=== PATIENT | female | born 1945 | race Caucasian/White ===

== ENCOUNTER 2017-08-14 13:44 | Inpatient (IN) | payer MEDICARE, OTHER ==
[~2017-08-14] VITALS: Ht 154.9 cm; Wt 56.2 kg
[2017-08-14 14:30] VITALS: BP 118/69
--- NOTE | 2017-08-14 14:33 | Emergency Room Report ---
History of Present Illness General Chief Complaint: Seizure Source: Medical Record, PMD Present Illness HPI 72-year-old female, history of schizophrenia,?L forehead herpes zoster ophthalmics Br[facility] No other history is able to be obtained as patient only saying 1-2 word phrases , and not answering questions appropriately. but currently denying complaints Allergies: Coded Allergies: SHELLFISH DERIVED (Verified Allergy, Intermediate, 08/14/17) Dust (Verified Allergy, Unknown, 08/14/17) MOLD (Verified Allergy, Unknown, 08/14/17) WHEAT (Verified Allergy, Unknown, 08/14/17) Patient History Past Medical History: see triage record Past Surgical History: none Pertinent Family History: none Reviewed Nursing Documentation: PMH: Agreed, PSxH: Agreed Review of Systems All Other Systems: limited - confused Physical Exam Vital Signs Date Time Temp Pulse Resp B/P (MAP) Pulse Ox O2 Delivery O2 Flow Rate FiO2 08/14/17 13:51 97.5 73 18 118/69 96 Room Air Sp02 EP Interpretation: reviewed, normal General Appearance: other - awake, nad, blank and withdrawn affect Head: normocephalic - vesicular lesions notedabove L eye Eyes: bilateral eye PERRL, bilateral eye EOMI, bilateral eye other - macules/ pustules on R side of forehead ENT: normal ENT inspection, normal pharynx, normal voice, moist mucus membranes Neck: normal inspection, full range of motion, supple Respiratory: normal inspection, lungs clear, normal breath sounds, no respiratory distress, no retraction, no wheezing, speaking full sentences, chest symmetrical Cardiovascular #1: normal inspection, regular rate, rhythm, normal capillary refill Cardiovascular #2: 2+ radial (R), 2+ radial (L) Gastrointestinal: normal inspection, non tender, soft, non-distended, no guarding Musculoskeletal: normal inspection, back normal, normal range of motion, non- tender Neurologic: other - oritned to name, moving all four ext spont, but is not cooperative for full neuro exam Psychiatric: other - withdrawn affect Skin: normal inspection, normal color, no rash, warm/dry, well hydrated, normal turgor Medical Decision Making Diagnostic Impression: Primary Impression: Seizure disorder Additional Impression: Ophthalmic herpes zoster ER Course 72 yo F schizophrenia, with recurrent seizures DDX: Primary seizure, triggered by infection UTI/PNA vs. dehydration vs. medication non compliance Electrolyte disturbance: hypoglycemia vs. hyponatremia vs. hypocalcemia vs. hypomagnesemia Cardiac: Arrythmia/acs Intracranial pathology: intracranial bleed, stroke Plan: BGM EKG Labs Ativan PRN ER course: No further seizures in ED Given additional 500 valproic acid as recommended by neurologist Disposition: Patient will be admitted to [facility] Discussed with Dr. Jaziel Arana Strict return precautions discussed such as severe headache, fever, chills, neck pain, prolonged or increased frequency of seizures. Patient verbalized understanding and agrees with plan. EKG Diagnostic Results EP Interpretation: Yes Rate: normal Rhythm: NSR ST Segments: No acute changes ASA given to patient: No Rhythm Strip EP Interpretation: Yes Rate: 70 Rhythm: NSR, no PVCs, no ectopy Chest X-ray CXR: Ordered: Yes 1 view Indication: Seizure EP interpretation: Yes Interpretation: No consolidation, no effusion, no PTX, no acute cardiopulmonary disease Impression: No acute disease Electronically signed by Gallo Roberson MD Laboratory Tests Test 08/14/17 16:56 White Blood Count 10.0 K/UL (4.8-10.8) Red Blood Count 3.84 M/UL (4.20-5.40) L Hemoglobin 12.4 G/DL (12.0-16.0) Hematocrit 37.1 % (37.0-47.0) Mean Corpuscular Volume 97 FL (80-99) Mean Corpuscular Hemoglobin 32.2 PG (27.0-31.0) H Mean Corpuscular Hemoglobin Concent 33.4 G/DL (32.0-36.0) Red Cell Distribution Width 11.7 % (11.6-14.8) Platelet Count 205 K/UL (150-450) Mean Platelet Volume 9.4 FL (6.5-10.1) Neutrophils (%) (Auto) 60.6 % (45.0-75.0) Lymphocytes (%) (Auto) 31.0 % (20.0-45.0) Monocytes (%) (Auto) 6.8 % (1.0-10.0) Eosinophils (%) (Auto) 0.5 % (0.0-3.0) Basophils (%) (Auto) 1.0 % (0.0-2.0) Sodium Level 143 MMOL/L (136-145) Potassium Level 4.4 MMOL/L (3.5-5.1) Chloride Level 108 MMOL/L (98-107) H Carbon Dioxide Level 28 MMOL/L (21-32) Anion Gap 7 mmol/L (5-15) Blood Urea Nitrogen 18 mg/dL (7-18) Creatinine 0.6 MG/DL (0.55-1.30) Estimate Glomerular Filtration Rate mL/min (>60) Glucose Level 91 MG/DL (74-106) Calcium Level 8.2 MG/DL (8.5-10.1) L Total Bilirubin 0.2 MG/DL (0.2-1.0) Aspartate Amino Transferase (AST) 20 U/L (15-37) Alanine Aminotransferase (ALT) 14 U/L (12-78) Alkaline Phosphatase 88 U/L (46-116) Troponin I 0.000 ng/mL (0.000-0.056) Pro-B-Type Natriuretic Peptide 253 pg/mL (0-125) H Total Protein 6.8 G/DL (6.4-8.2) Albumin 3.2 G/DL (3.4-5.0) L Globulin 3.6 g/dL Albumin/Globulin Ratio 0.9 (1.0-2.7) L Valproic Acid Level 68 MCG/ML (50-100) Last Vital Signs Date Time Temp Pulse Resp B/P (MAP) Pulse Ox O2 Delivery O2 Flow Rate FiO2 08/14/17 13:51 97.5 73 18 118/69 96 Room Air Disposition: ADMITTED INPATIENT Condition: Serious Gallo Roberson M.D. Aug 14, 2017 14:33
[2017-08-14] MEDS ORDERED: LORazepam Inj 2mg/ml 1ml IM ONE (15:00)
[2017-08-14] MEDS ORDERED: Mylanta II UD 30ml ORAL PRN (15:15)
[2017-08-14] MEDS ORDERED: Morphine Sulfate 2mg/ml Inj IVP PRN (15:15)
[2017-08-14] MEDS ORDERED: LORazepam Inj 2mg/ml 1ml IV PRN ×3 (15:15→23:45)
[2017-08-14] MEDS ORDERED: Miralax 17gm pkt ORAL PRN (15:15)
[2017-08-14] MEDS ORDERED: Zolpidem 5mg tab ORAL PRN (15:15)
--- NOTE | 2017-08-14 15:17 | Diagnostic Imaging Report ---
Indication: Chest pain Technique: One view of the chest Comparison: none Findings: No acute infiltrates, effusions, or congestion. Tortuous calcified aorta. Normal heart size. Upper mediastinum unremarkable. Inspiration is suboptimal. There is biapical pleural thickening Impression: No acute process.
--- NOTE | 2017-08-14 15:38 | Diagnostic Imaging Report ---
Indications: Altered mental status Technique: Spiral acquisitions obtained through the brain. Angled axial and coronal 5 x 5 mm slices were reconstructed. Total dose length product 1376.09 mGycm. CTDI vol(s) 70.38 mGy. Dose reduction achieved using automated exposure control Comparison: None. Findings: There is marked age-related enlargement of the ventricles and extra axial CSF spaces. There is periventricular deep white matter ischemic change no acute intrarenal hemorrhage or edema. No mass effect nor midline shift. Otherwise normal pompa-white differentiation. There is minimal ethmoid sinus disease. The orbits are unremarkable. The mastoids are clear. Intact calvarium. Impression: Marked chronic and age-related changes Negative for acute intracranial bleed or mass effect The CT scanner at [facility] is accredited by the [employer] and the scans are performed using protocols designed to limit radiation exposure to as low as reasonably achievable to attain images of sufficient resolution adequate for diagnostic evaluation.
--- NOTE | 2017-08-14 15:49 | Neurology Progress Note ---
Objective Physical Exam Last Vital Signs Date Time Temp Pulse Resp B/P (MAP) Pulse Ox O2 Delivery O2 Flow Rate FiO2 08/14/17 13:51 97.5 73 18 118/69 96 Room Air Impression/Recommendations Problems: (1) Uncontrolled seizures Recommendations #[id number] STEPHANIE MAE Aug 14, 2017 15:49
[2017-08-14] MEDS ORDERED: Valproate Sodium INJ 500 MG in D5W 55 ML IVPB ONE (16:00)
[2017-08-14 17:30] LABS: EOSINOPHILS % (AUTO) 0.5 % (0.0-3.0); HEMATOCRIT 37.1 % (37.0-47.0); HEMOGLOBIN 12.4 G/DL (12.0-16.0); MEAN CORPUSCULAR VOLUME 97 FL (80-99); MONOCYTES % (AUTO) 6.8 % (1.0-10.0); NEUTROPHILS % (AUTO) 60.6 % (45.0-75.0); PLATELET COUNT 205 K/UL (150-450); RED BLOOD COUNT 3.84 M/UL (4.20-5.40); RED CELL DISTRIBUTION WIDTH 11.7 % (11.6-14.8)
[2017-08-14 17:51] LABS: ANION GAP 7 mmol/L (5-15); BLOOD UREA NITROGEN 18 mg/dL (7-18); CALCIUM 8.2 MG/DL (8.5-10.1); CARBON DIOXIDE 28 MMOL/L (21-32); CHLORIDE 108 MMOL/L (98-107); CREATININE 0.6 MG/DL (0.55-1.30); POTASSIUM 4.4 MMOL/L (3.5-5.1); SODIUM 143 MMOL/L (136-145)
[2017-08-14] MEDS ORDERED: Valproic Acid 250mg/5ml Liquid NG SCH (18:00)
[2017-08-14 18:03] LABS: ALANINE AMINOTRANSFERASE 14 U/L (12-78); ALBUMIN 3.2 G/DL (3.4-5.0); ALBUMIN/GLOBULIN RATIO 0.9 (1.0-2.7); ALKALINE PHOSPHATASE 88 U/L (46-116); ASPARTATE AMINO TRANSFERASE 20 U/L (15-37); BILIRUBIN,TOTAL 0.2 MG/DL (0.2-1.0)
[2017-08-14 18:55] VITALS: BP 101/77
--- NOTE | 2017-08-14 19:20 | Consultation ---
Consult Note Consult Note Ophthalmology Consultation Referring Physician: Jaziel Arana Reason for Consultation: Periocular Zoster History of the present illness: The patient was brought into the the [facility] ER due to seizure. She was also noted to have a periocular rash on the left side. The patient is minimally communicative and not able to answer questions. History is obtained from the medical record and the nursing staff in the ER. Past medical Hx: seizure disorder, schizophrenia Medications: tylenol, mylanta, ativan, morphine, miralax, valproic acid, ambien Allergies: shellfish, dust, mold, wheat Family History: unknown Social History: group home resident Review of Systems: unable to obtain due to patient's mental status Examination: Patient drowsy, but arousable, able to follow some commands but non answering questions Visual Acuity: OD: unable to assess, appears to respond to light OS: unable to assess, appears to respond to light Intraocular pressure: OD: squinting, <20 mmHg by palpation OS: squinting, <20 mmHg by palpation Pupils: equal, round and reactive to light, without afferent pupillary defect in either eye Extra-ocular motility: limited exam, but not gross restriction noted Confrontational visual wheatley: unable Anterior Segments: External: normal lids and orbits OD, erythematous vessicular rash involving left brow Conjunctivae: white and quiet OU Cornea: Clear OU, no fluorescein staining Anterior Chambers: Deep and Quiet OU Irides: Round and flat OU Lenses: Clear OU Dilated Fundus Examination (phenylephrine 2.5%, tropicamide 1%): Vitreous: Clear OU Optic Nerves: Sharp OU Vessels: Normal course and caliber OU Maculae: Flat OU Periphery: normal OU Studies: external photos showing the above findings . Assessment/Plan . Impression: 1. Herpes Zoster infection without ocular involvement Assessment and Plan: 72-year-old with Left v1 zoster infection without evidence of ocular involvement based on bedside exam. She is being admitted for management of seizure disorder. It is unclear how long the zoster infection has been present or if she has undergone treatment. It would be reasonable to treat her with a course of antiviral medication (acyclovir or valacyclovir) if this cannot be ascertained. Antibiotic ointment should be applied to the rash TID to prevent bacterial infection. Please call with any questions. Thank you very much for this consultation Carlos Magana M.D. [phone] CARLOS MAGANA Aug 14, 2017 19:20
[2017-08-14] MEDS ORDERED: ACIDOPHILUS LA1 EAC2 PO (19:37)
[2017-08-14] MEDS ORDERED: DOCUSATE SODIU100 MG ORAL (19:37)
[2017-08-14] MEDS ORDERED: TUBERSOL5 TUB UNIT ID (19:37)
[2017-08-14] MEDS ORDERED: DIPHENHYDRAMINE25 M1 ORAL (19:37)
[2017-08-14] MEDS ORDERED: PROMOD946 ML PO (19:37)
[2017-08-14] MEDS ORDERED: MUPIROCIN22 GM TOPIC (19:37)
[2017-08-14] MEDS ORDERED: MULTIVITAMINS1 EAC2 ORAL (19:37)
[2017-08-14] MEDS ORDERED: MIRTAZAPINE7.5 MG ORAL (19:37)
[2017-08-14] MEDS ORDERED: RISPERDAL0.5 MG ORAL (19:37)
[2017-08-14] MEDS ORDERED: DEPAKENE250 MG/5 M PO (19:37)
[2017-08-14] MEDS ORDERED: SENNOSIDES8.6 MG ORAL (19:37)
[2017-08-14] MEDS ORDERED: DONEPEZIL HCL10 MG ORAL (19:37)
[2017-08-14] MEDS ORDERED: NAMENDA10 MG ORAL (19:37)
[2017-08-14 20:00] VITALS: BP 134/43
[2017-08-14] MEDS: Heparin 5000 units/ml inj SUBQ SCH (21:22)
[2017-08-14 22:00] VITALS: BP 111/65
--- NOTE | 2017-08-14 22:11 | Pulmonology Progress Note ---
Assessment/Plan Problems: (1) Uncontrolled seizures (2) Depression (3) Ophthalmic herpes zoster Assessment/Plan neuro evaluation seizure precaution symptomatic treatment psych evaluation. Subjective ROS Limited/Unobtainable: No Interval Events: no more seizures. Allergies: Coded Allergies: SHELLFISH DERIVED (Verified Allergy, Intermediate, 08/14/17) Dust (Verified Allergy, Unknown, 08/14/17) MOLD (Verified Allergy, Unknown, 08/14/17) WHEAT (Verified Allergy, Unknown, 08/14/17) Objective Last 24 Hour Vital Signs Date Time Temp Pulse Resp B/P (MAP) Pulse Ox O2 Delivery O2 Flow Rate FiO2 08/14/17 22:00 76 14 111/65 100 Nasal Cannula 2.0 08/14/17 20:00 87 12 134/43 96 Nasal Cannula 2.0 08/14/17 18:55 97.5 18 101/77 96 Room Air 08/14/17 14:30 73 18 Room Air 08/14/17 14:30 97.5 18 118/69 96 Room Air 08/14/17 13:51 97.5 73 18 118/69 96 Room Air General Appearance: cachetic HEENT: normocephalic, atraumatic Respiratory/Chest: chest wall non-tender, lungs clear Breasts: no masses Cardiovascular: normal peripheral pulses Abdomen: normal bowel sounds, soft, non tender Genitourinary: normal external genitalia Extremities: no clubbing 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 Laboratory Tests 08/14/17 16:56: White Blood Count 10.0, Red Blood Count 3.84L, Hemoglobin 12.4, Hematocrit 37.1 , Mean Corpuscular Volume 97, Mean Corpuscular Hemoglobin 32.2H, Mean Corpuscular Hemoglobin Concent 33.4, Red Cell Distribution Width 11.7, Platelet Count 205, Mean Platelet Volume 9.4, Neutrophils (%) (Auto) 60.6, Lymphocytes (% ) (Auto) 31.0, Monocytes (%) (Auto) 6.8, Eosinophils (%) (Auto) 0.5, Basophils ( %) (Auto) 1.0, Sodium Level 143, Potassium Level 4.4, Chloride Level 108H, Carbon Dioxide Level 28, Anion Gap 7, Blood Urea Nitrogen 18, Creatinine 0.6, Estimat Glomerular Filtration Rate , Glucose Level 91, Calcium Level 8.2L, Total Bilirubin 0.2, Aspartate Amino Transf (AST/SGOT) 20, Alanine Aminotransferase (ALT/SGPT) 14, Alkaline Phosphatase 88, Troponin I 0.000, Pro-B -Type Natriuretic Peptide 253H, Total Protein 6.8, Albumin 3.2L, Globulin 3.6, Albumin/Globulin Ratio 0.9L, Valproic Acid (Depakene) Level 68 Current Medications Medications (Trade) Dose Ordered Sig/[place]wick Route PRN Reason Start Time Stop Time Status Last Admin Dose Admin Acetaminophen (Tylenol) 650 mg Q4H PRN ORAL fever 08/14/17 15:15 09/13/17 15:14 Al Hydroxide/Mg Hydroxide (Mylanta II) 30 ml Q6H PRN ORAL dyspepsia 08/14/17 15:15 09/13/17 15:14 Dextrose (Dextrose 50%) STAT PRN IV Hypoglycemia 08/14/17 15:15 09/13/17 15:14 Heparin Sodium (Porcine) (Heparin 5000 units/ml) 5,000 units EVERY 12 HOURS SUBQ 08/14/17 21:00 09/13/17 20:59 08/14/17 21:22 Lorazepam (Ativan 2mg/ml 1ml) 2 mg Q1H PRN IV seizures 08/14/17 15:15 08/21/17 15:14 Morphine Sulfate (Morphine Sulfate) 1 mg Q4H PRN IVP For Pain 08/14/17 15:15 08/21/17 15:14 Ondansetron HCl (Zofran) 4 mg Q6H PRN IVP Nausea & Vomiting 08/14/17 15:15 09/13/17 15:14 Polyethylene Glycol (Miralax) 17 gm HSPRN PRN ORAL Constipation 08/14/17 15:15 09/13/17 15:14 Valproic Acid (Depakene) 750 mg Q12HR@0600,1800 NG 08/14/17 18:00 09/13/17 17:59 08/14/17 18:03 Zolpidem Tartrate (Ambien) 5 mg HSPRN PRN ORAL Insomnia 08/14/17 15:15 08/21/17 15:14 KANDACE SALGADO Aug 14, 2017 22:11
[2017-08-15] VITALS: BP 136/65
--- NOTE | 2017-08-15 01:00 | History and Physical Report ---
DATE OF ADMISSION: 08/14/2017 TIME SEEN: At 2 p.m. CONSULTANTS: 1. Meghann Dailey M.D. 2. Mark Lee M.D. 3. Jesu Wilkes M.D. 4. Dr. Mark. 5. Dr. Magana. CHIEF COMPLAINT: Recurrent seizure this morning, encephalopathy, left eyebrow shingle. BRIEF HISTORY: The patient is a 72-year-old female from [facility], who presented with the above-mentioned diagnoses. She has history of encephalopathy and is not very history. She apparently had a witnessed seizure this morning. She had a previous one prior. The patient in the ER right now being admitted. The patient is slightly confused in bed, not talking much. REVIEW OF SYSTEMS: Unavailable. PAST MEDICAL HISTORY: Unable to obtain and has encephalopathy. PAST SURGICAL HISTORY: Unknown. MEDICATIONS: We will obtain shortly. ALLERGIES: Denies. SOCIAL HISTORY: She claims positive smoke, positive alcohol. No intravenous drug abuse. FAMILY HISTORY: Noncontributory. PHYSICAL EXAMINATION: GENERAL: Calm in the ER gurney, oriented x1, in no acute distress. VITAL SIGNS: Temperature 97, pulse 73, respiratory rate 18, and blood pressure 118/69. CARDIOVASCULAR: No murmur. LUNGS: Distant, clear. ABDOMEN: Bowel sounds positive. Nontender. Nondistended. EXTREMITIES: No cyanosis or edema. NEUROLOGIC: The patient moves all extremities, slightly weak. SKIN: above left eyebrow, area of 0.5 inch x 1 inch redness consistent with zoster lesion. LABORATORY AND DIAGNOSTIC DATA: Laboratories are pending. ASSESSMENT: 1. Recurrent seizure. 2. Encephalopathy. 3. Left eyebrow shingle. 4. Confusion. PLAN: Continue pre-admit medications. OT, PT, dietary evaluation. CBC and BMP in the morning. Antibiotics per infectious disease. Obtain further history and home medication list. Dr. Dailey, Dr. Lee, Dr. Wilkes, Dr. Mark, Dr. Magana to consult. We will continue to follow the patient medically. Jaziel Arana D.O. DR: RENU JOB#: [id number] CC:
--- NOTE | 2017-08-15 03:15 | Consultation ---
DATE OF CONSULTATION: 08/14/2017 NEUROLOGICAL CONSULTATION CONSULTING PHYSICIAN: Mark Lee M.D. REQUESTING PHYSICIAN: Jaziel Arana D.O. HISTORY OF PRESENT ILLNESS: This is a 72-year-old female seen in neurological consultation to evaluate exacerbation of seizure disorder. The patient is a resident of a nursing facility where she was having generalized seizure episode. She was brought to this facility with limited verbal output, unable to follow commands, and unable to provide with any history. According to available medical records though, now that the patient is suffering from multiple medical issues including chronic seizure disorder, most recently end of July she developed a left eyebrow herpes zoster lesion for which she was treated at [facility]. She was diagnosed with zoster, also COPD, psychiatric disorder, anemia, dementia, GERD, and seizure disorder. MEDICATIONS: The patient's treatment list included Depakene 500 mg twice a day, Benadryl, donepezil 10 mg, Namenda 10 mg, mirtazapine 7.5 mg, and Risperdal 0.5 mg daily. ALLERGIES: Including shellfish, dust, mold and wheat. The patient was brought to the emergency room. She was described as being very restless, agitated despite injection of 2 mg of Ativan. EKG, normal sinus rhythm. Chest x-ray, no acute disease noted. CAT scan of the brain revealed no acute intracranial abnormalities. No stroke or hemorrhage but there was significant hydrocephalus, and diffuse cortical atrophy. A full report follows. Since admission until present, there were no further seizure activities. PAST MEDICAL HISTORY: History of schizophrenia, history of dementia, chronic seizure disorder, GERD, recent zoster disease, anemia, and osteoarthritis. FAMILY HISTORY: Unavailable. REVIEW OF SYMPTOMS: Unable to obtain due to the patient's status. PHYSICAL EXAMINATION: GENERAL: A well-developed and well-nourished female, lying in bed. VITAL SIGNS: Stable. Blood pressure 132/80, respirations 14, and temperature 98.1. HEAD: Normocephalic. There is no evidence of trauma, but there is an open skin lesion in the left eyebrow from recent herpes zoster. In the nose bridge, a small area of redness. No otorrhea. No rhinorrhea. NECK: Rigid in all directions. MUSCULOSKELETAL: Unremarkable. There are no deformities. Peripheral pulses 1+ symmetric. MENTAL STATUS: The patient is alert. She has a brief eye contact. She is very disoriented and incoherent. Does not follow simple commands. Speech is gibberish. CRANIAL NERVE II: Pupils both responding to light and accommodation. Extraocular movement full range. CRANIAL NERVE V: Normal corneal responses. CRANIAL NERVE VII: No facial asymmetry. CRANIAL NERVE VIII: Grossly normal hearing. CRANIAL NERVES IX THROUGH XII: Tongue is in midline. MOTOR EXAMINATION: Able to lift arms and flex against the gravity. Strength appears normal. Deep tendon reflexes depressed bilaterally. Plantar responses flexor. SENSORY EXAMINATION: No response to pin stimulation in both upper and lower extremities. Gait not tested. IMPRESSION: 1. Chronic seizure disorder, exacerbation. 2. zoster, left eyebrow. 3. Acute encephalopathy? postictal? advanced dementia. 4. History of chronic psychiatric disorder. 5. Chronic obstructive pulmonary disease. RECOMMENDATION: 1. Check Depakote level. 2. Adjust the dose appropriately keeping in maximum normal range. 3. Observe for any paroxysmal events. Maintain Ativan 2 mg q.2 h. p.r.n. for breakthrough seizures. 4. Continue with IV fluids and antibiotics to cover underlying infection. Thank you for allowing me to see this interesting patient in neurological consultation. Mark Lee M.D. DR: ADELE JOB#: [id number] CC:
[2017-08-15 04:00] VITALS: BP 144/71
[2017-08-15] MEDS: Valproic Acid 250mg/5ml Liquid ORAL SCH ×2 (06:35→17:16)
[2017-08-15 07:26] LABS: BASOPHILS % (AUTO) 1.3 % (0.0-2.0); EOSINOPHILS % (AUTO) 0.8 % (0.0-3.0); HEMATOCRIT 37.8 % (37.0-47.0); HEMOGLOBIN 13.3 G/DL (12.0-16.0); LYMPHOCYTES % (AUTO) 38.1 % (20.0-45.0); MEAN CORPUSCULAR VOLUME 97 FL (80-99); MONOCYTES % (AUTO) 9.4 % (1.0-10.0); NEUTROPHILS % (AUTO) 50.5 % (45.0-75.0); PLATELET COUNT 186 K/UL (150-450); RED BLOOD COUNT 3.89 M/UL (4.20-5.40); RED CELL DISTRIBUTION WIDTH 11.8 % (11.6-14.8); WHITE BLOOD COUNT 8.1 K/UL (4.8-10.8)
[2017-08-15 07:55] VITALS: BP 130/60
[2017-08-15 08:04] LABS: ALANINE AMINOTRANSFERASE 13 U/L (12-78); ALBUMIN 3.1 G/DL (3.4-5.0); ALBUMIN/GLOBULIN RATIO 0.9 (1.0-2.7); ALKALINE PHOSPHATASE 90 U/L (46-116); ANION GAP 7 mmol/L (5-15); ASPARTATE AMINO TRANSFERASE 18 U/L (15-37); BILIRUBIN,TOTAL 0.3 MG/DL (0.2-1.0); BLOOD UREA NITROGEN 17 mg/dL (7-18); CALCIUM 8.3 MG/DL (8.5-10.1); CARBON DIOXIDE 28 MMOL/L (21-32); CHLORIDE 108 MMOL/L (98-107); CREATININE 0.6 MG/DL (0.55-1.30); POTASSIUM 4.2 MMOL/L (3.5-5.1); SODIUM 143 MMOL/L (136-145)
[2017-08-15] MEDS: Heparin 5000 units/ml inj SUBQ SCH ×2 (08:52→21:27)
[2017-08-15 12:00] VITALS: BP 118/72
--- NOTE | 2017-08-15 14:26 | General Progress Note ---
Assessment/Plan Problem List: (1) Uncontrolled seizures ICD Codes: R56.9 - Unspecified convulsions SNOMED: 64531945 (2) Ophthalmic herpes zoster ICD Codes: B02.30 - Zoster ocular disease, unspecified SNOMED: 68016453 (3) Seizure disorder ICD Codes: G40.909 - Epilepsy, unspecified, not intractable, without status epilepticus SNOMED: 381652043 Status: stable, progressing, tolerating diet Assessment/Plan ot pt diet seizure control cbc bmp am Subjective Constitutional: Reports: weakness Allergies: Coded Allergies: SHELLFISH DERIVED (Verified Allergy, Intermediate, 08/14/17) Dust (Verified Allergy, Unknown, 08/14/17) MOLD (Verified Allergy, Unknown, 08/14/17) WHEAT (Verified Allergy, Unknown, 08/14/17) All Systems: reviewed and negative except above Subjective o2nc confused in bed Objective Last 24 Hour Vital Signs Date Time Temp Pulse Resp B/P (MAP) Pulse Ox O2 Delivery O2 Flow Rate FiO2 08/15/17 12:00 96.4 69 18 118/72 100 Nasal Cannula 2.0 08/15/17 12:00 69 08/15/17 11:15 98 Nasal Cannula 2.0 28 08/15/17 11:15 Nasal Cannula 2.0 28 08/15/17 08:00 88 08/15/17 07:55 96.0 84 18 130/60 100 08/15/17 04:00 78 08/15/17 04:00 97.2 77 16 144/71 100 08/15/17 00:00 97.0 77 16 136/65 96 08/14/17 22:40 97.5 76 14 111/65 100 Nasal Cannula 2.0 08/14/17 22:00 76 14 111/65 100 Nasal Cannula 2.0 08/14/17 20:00 87 12 134/43 96 Nasal Cannula 2.0 08/14/17 18:55 97.5 18 101/77 96 Room Air 08/14/17 14:30 73 18 Room Air 08/14/17 14:30 97.5 18 118/69 96 Room Air Intake and Output 08/14/17 08/15/17 19:00 07:00 Intake Total 0 ml Balance 0 ml Intake Oral 0 ml # Voids 1 Laboratory Tests 08/14/17 16:56: White Blood Count 10.0, Red Blood Count 3.84L, Hemoglobin 12.4, Hematocrit 37.1 , Mean Corpuscular Volume 97, Mean Corpuscular Hemoglobin 32.2H, Mean Corpuscular Hemoglobin Concent 33.4, Red Cell Distribution Width 11.7, Platelet Count 205, Mean Platelet Volume 9.4, Neutrophils (%) (Auto) 60.6, Lymphocytes (% ) (Auto) 31.0, Monocytes (%) (Auto) 6.8, Eosinophils (%) (Auto) 0.5, Basophils ( %) (Auto) 1.0, Sodium Level 143, Potassium Level 4.4, Chloride Level 108H, Carbon Dioxide Level 28, Anion Gap 7, Blood Urea Nitrogen 18, Creatinine 0.6, Estimat Glomerular Filtration Rate , Glucose Level 91, Calcium Level 8.2L, Total Bilirubin 0.2, Aspartate Amino Transf (AST/SGOT) 20, Alanine Aminotransferase (ALT/SGPT) 14, Alkaline Phosphatase 88, Troponin I 0.000, Pro-B -Type Natriuretic Peptide 253H, Total Protein 6.8, Albumin 3.2L, Globulin 3.6, Albumin/Globulin Ratio 0.9L, Valproic Acid (Depakene) Level 68 08/15/17 06:00: White Blood Count 8.1, Red Blood Count 3.89L, Hemoglobin 13.3, Hematocrit 37.8, Mean Corpuscular Volume 97, Mean Corpuscular Hemoglobin 34.1H, Mean Corpuscular Hemoglobin Concent 35.1, Red Cell Distribution Width 11.8, Platelet Count 186, Mean Platelet Volume 9.8, Neutrophils (%) (Auto) 50.5, Lymphocytes (%) (Auto) 38.1, Monocytes (%) (Auto) 9.4, Eosinophils (%) (Auto) 0.8, Basophils (%) (Auto ) 1.3, Sodium Level 143, Potassium Level 4.2, Chloride Level 108H, Carbon Dioxide Level 28, Anion Gap 7, Blood Urea Nitrogen 17, Creatinine 0.6, Estimat Glomerular Filtration Rate , Glucose Level 82, Calcium Level 8.3L, Total Bilirubin 0.3, Aspartate Amino Transf (AST/SGOT) 18, Alanine Aminotransferase ( ALT/SGPT) 13, Alkaline Phosphatase 90, Total Protein 6.7, Albumin 3.1L, Globulin 3.6, Albumin/Globulin Ratio 0.9L Height (Feet): 5 Height (Inches): 1.00 Weight (Pounds): 124 General Appearance: lethargic, confused EENT: normal ENT inspection Neck: normal alignment Cardiovascular: normal peripheral pulses, normal rate, regular rhythm Respiratory/Chest: chest wall non-tender, lungs clear, normal breath sounds Abdomen: normal bowel sounds, non tender, soft Extremities: normal inspection Edema: no edema noted Arm (L), no edema noted Arm (R), no edema noted Leg (L), no edema noted Leg (R), no edema noted Pedal (L), no edema noted Pedal (R), no edema noted Generalized Neurologic: motor weakness Skin: normal pigmentation, warm/dry HERNANDEZ CRAWFORD Aug 15, 2017 14:26
--- NOTE | 2017-08-15 15:19 | Pulmonology Progress Note ---
Assessment/Plan Problems: (1) Uncontrolled seizures (2) Depression (3) Ophthalmic herpes zoster Assessment/Plan neuro evaluation seizure precaution symptomatic treatment psych evaluation. On Acyclovir and valproic acid Subjective ROS Limited/Unobtainable: No Constitutional: Reports: no symptoms HEENT: Repors: no symptoms Respiratory: Reports: no symptoms Gastrointestinal/Abdominal: Reports: no symptoms Allergies: Coded Allergies: SHELLFISH DERIVED (Verified Allergy, Intermediate, 08/14/17) Dust (Verified Allergy, Unknown, 08/14/17) MOLD (Verified Allergy, Unknown, 08/14/17) WHEAT (Verified Allergy, Unknown, 08/14/17) Objective Last 24 Hour Vital Signs Date Time Temp Pulse Resp B/P (MAP) Pulse Ox O2 Delivery O2 Flow Rate FiO2 08/15/17 12:00 96.4 69 18 118/72 100 Nasal Cannula 2.0 08/15/17 12:00 69 08/15/17 11:15 98 Nasal Cannula 2.0 28 08/15/17 11:15 Nasal Cannula 2.0 28 08/15/17 08:00 88 08/15/17 07:55 96.0 84 18 130/60 100 08/15/17 04:00 78 08/15/17 04:00 97.2 77 16 144/71 100 08/15/17 00:00 97.0 77 16 136/65 96 08/14/17 22:40 97.5 76 14 111/65 100 Nasal Cannula 2.0 08/14/17 22:00 76 14 111/65 100 Nasal Cannula 2.0 08/14/17 20:00 87 12 134/43 96 Nasal Cannula 2.0 08/14/17 18:55 97.5 18 101/77 96 Room Air Intake and Output 08/14/17 08/15/17 19:00 07:00 Intake Total 0 ml Balance 0 ml Intake Oral 0 ml # Voids 1 General Appearance: cachetic HEENT: normocephalic, atraumatic Breasts: no masses Cardiovascular: normal rate Genitourinary: normal external genitalia Extremities: no cyanosis Neurologic/Psychiatric: 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 regulating 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 II-XII grossly normal, no motor/sensory deficits Laboratory Tests 08/14/17 16:56: White Blood Count 10.0, Red Blood Count 3.84L, Hemoglobin 12.4, Hematocrit 37.1 , Mean Corpuscular Volume 97, Mean Corpuscular Hemoglobin 32.2H, Mean Corpuscular Hemoglobin Concent 33.4, Red Cell Distribution Width 11.7, Platelet Count 205, Mean Platelet Volume 9.4, Neutrophils (%) (Auto) 60.6, Lymphocytes (% ) (Auto) 31.0, Monocytes (%) (Auto) 6.8, Eosinophils (%) (Auto) 0.5, Basophils ( %) (Auto) 1.0, Sodium Level 143, Potassium Level 4.4, Chloride Level 108H, Carbon Dioxide Level 28, Anion Gap 7, Blood Urea Nitrogen 18, Creatinine 0.6, Estimat Glomerular Filtration Rate , Glucose Level 91, Calcium Level 8.2L, Total Bilirubin 0.2, Aspartate Amino Transf (AST/SGOT) 20, Alanine Aminotransferase (ALT/SGPT) 14, Alkaline Phosphatase 88, Troponin I 0.000, Pro-B -Type Natriuretic Peptide 253H, Total Protein 6.8, Albumin 3.2L, Globulin 3.6, Albumin/Globulin Ratio 0.9L, Valproic Acid (Depakene) Level 68 08/15/17 06:00: White Blood Count 8.1, Red Blood Count 3.89L, Hemoglobin 13.3, Hematocrit 37.8, Mean Corpuscular Volume 97, Mean Corpuscular Hemoglobin 34.1H, Mean Corpuscular Hemoglobin Concent 35.1, Red Cell Distribution Width 11.8, Platelet Count 186, Mean Platelet Volume 9.8, Neutrophils (%) (Auto) 50.5, Lymphocytes (%) (Auto) 38.1, Monocytes (%) (Auto) 9.4, Eosinophils (%) (Auto) 0.8, Basophils (%) (Auto ) 1.3, Sodium Level 143, Potassium Level 4.2, Chloride Level 108H, Carbon Dioxide Level 28, Anion Gap 7, Blood Urea Nitrogen 17, Creatinine 0.6, Estimat Glomerular Filtration Rate , Glucose Level 82, Calcium Level 8.3L, Total Bilirubin 0.3, Aspartate Amino Transf (AST/SGOT) 18, Alanine Aminotransferase ( ALT/SGPT) 13, Alkaline Phosphatase 90, Total Protein 6.7, Albumin 3.1L, Globulin 3.6, Albumin/Globulin Ratio 0.9L Current Medications Medications (Trade) Dose Ordered Sig/Chadwick Route PRN Reason Start Time Stop Time Status Last Admin Dose Admin Acetaminophen (Tylenol) 650 mg Q4H PRN ORAL fever 08/14/17 15:15 09/13/17 15:14 Acyclovir (Zovirax) 800 mg EVERY 6 HOURS ORAL 08/15/17 12:00 09/14/17 11:59 08/15/17 12:00 Al Hydroxide/Mg Hydroxide (Mylanta II) 30 ml Q6H PRN ORAL dyspepsia 08/14/17 15:15 09/13/17 15:14 Dextrose (Dextrose 50%) STAT PRN IV Hypoglycemia 08/14/17 15:15 09/13/17 15:14 Heparin Sodium (Porcine) (Heparin 5000 units/ml) 5,000 units EVERY 12 HOURS SUBQ 08/14/17 21:00 09/13/17 20:59 08/15/17 08:52 Lorazepam (Ativan 2mg/ml 1ml) 1 mg Q1HR PRN IV For Anxiety 08/14/17 23:45 08/21/17 23:44 Lorazepam (Ativan 2mg/ml 1ml) 2 mg Q1H PRN IV seizures 08/14/17 15:15 08/21/17 15:14 Morphine Sulfate (Morphine Sulfate) 1 mg Q4H PRN IVP For Pain 08/14/17 15:15 08/21/17 15:14 Ondansetron HCl (Zofran) 4 mg Q6H PRN IVP Nausea & Vomiting 08/14/17 15:15 09/13/17 15:14 Polyethylene Glycol (Miralax) 17 gm HSPRN PRN ORAL Constipation 08/14/17 15:15 09/13/17 15:14 Valproic Acid (Depakene) 750 mg Q12HR@0600,1800 ORAL 08/15/17 06:00 09/14/17 05:59 08/15/17 06:35 Zolpidem Tartrate (Ambien) 5 mg HSPRN PRN ORAL Insomnia 08/14/17 15:15 08/21/17 15:14 KANDACE SALGADO Aug 15, 2017 15:19
[2017-08-15 16:00] VITALS: BP 115/54
--- NOTE | 2017-08-15 16:14 | Consultation ---
DATE OF CONSULTATION: 08/15/2017 INFECTIOUS DISEASES CONSULTATION CONSULTING PHYSICIAN: Magno Maurer M.D. PRIMARY ATTENDING PHYSICIAN: Jaziel Arana D.O. REASON FOR CONSULTATION: Herpes Zoster. HISTORY OF PRESENT ILLNESS: The patient is a 72-year-old white female, admitted yesterday from nursing facility because of recurrent seizure activity. In addition, she has some skin lesion in the left eyebrow area. The patient had history of herpes zoster in June 2017 treated in [facility]. The patient is not a historian. PAST MEDICAL HISTORY: Significant for schizophrenia, seizure disorder, and dementia. ALLERGIES: Allergic to dust, mold, shellfish and wheat. MEDICATIONS: Getting valproic acid, lorazepam, heparin, Mylanta, Ambien, MiraLax, Tylenol, and morphine sulfate. SOCIAL HISTORY: . [facility] resident. No other history is obtainable by the patient. PHYSICAL EXAMINATION: VITAL SIGNS: Temperature 96, pulse 88, and blood pressure 130/60. GENERAL APPEARANCE: No acute distress. Noncommunicative. HEAD AND NECK: Erythematous face lesion in left eyebrow with shallow ulceration. HEART: Regular. LUNGS: Clear. ABDOMEN: Soft. EXTREMITIES: No edema. LABORATORY AND DIAGNOSTIC DATA: WBC 8.1, hemoglobin 13.3, hematocrit 37.8, and platelets 186. Sodium 143, potassium 4.2, chloride 108, bicarbonate 28, BUN 17, creatinine 0.6, and glucose is 82. Chest x-ray was negative. Head CT showed chronic and age-related changes. IMPRESSION: 1. Facial herpes zoster. The patient was seen by deli associate and eye is not involved. The patient had a previous episode in June. It may be recurrence. 2. Seizure activity. 3. Dementia. 4. Encephalopathy. RECOMMENDATION: We will treat again for herpes zoster. If the patient does not respond to treatment, may need to have a skin biopsy to rule out malignancy. At the end of my exam, I thank Dr. Jaziel Arana for involving me in the care of this patient. Magno Maurer M.D. DR: /Gennaro JOB#: [id number] CC:
[2017-08-15] MEDS ORDERED: Valproic Acid 250mg/5ml Liquid ORAL SCH (18:00)
[2017-08-15 20:01] VITALS: BP 118/56
[2017-08-15] MEDS ORDERED: Morphine Sulfate 2mg/ml Inj IVP PRN (23:15)
[2017-08-15] MEDS ORDERED: LORazepam Inj 2mg/ml 1ml IV PRN (23:15)
[2017-08-16] VITALS: BP 129/60
[2017-08-16] MEDS ORDERED: LORazepam Inj 2mg/ml 1ml IV PRN
[2017-08-16] MEDS ORDERED: Mylanta II UD 30ml ORAL PRN (03:15)
[2017-08-16 04:36] VITALS: BP 109/48
[2017-08-16] MEDS: Valproic Acid 250mg/5ml Liquid ORAL SCH ×2 (06:02→17:21)
[2017-08-16 08:00] VITALS: BP 110/50
[2017-08-16 08:19] LABS: BASOPHILS % (AUTO) 1.5 % (0.0-2.0); EOSINOPHILS % (AUTO) 1.4 % (0.0-3.0); HEMATOCRIT 38.7 % (37.0-47.0); LYMPHOCYTES % (AUTO) 46.7 % (20.0-45.0); MEAN CORPUSCULAR VOLUME 97 FL (80-99); MONOCYTES % (AUTO) 6.8 % (1.0-10.0); NEUTROPHILS % (AUTO) 43.6 % (45.0-75.0); PLATELET COUNT 201 K/UL (150-450); RED BLOOD COUNT 4.01 M/UL (4.20-5.40); RED CELL DISTRIBUTION WIDTH 11.9 % (11.6-14.8)
[2017-08-16 08:46] LABS: ANION GAP 4 mmol/L (5-15); BLOOD UREA NITROGEN 17 mg/dL (7-18); CALCIUM 8.3 MG/DL (8.5-10.1); CARBON DIOXIDE 31 MMOL/L (21-32); CHLORIDE 109 MMOL/L (98-107); CREATININE 0.7 MG/DL (0.55-1.30); POTASSIUM 4.3 MMOL/L (3.5-5.1); SODIUM 144 MMOL/L (136-145)
--- NOTE | 2017-08-16 09:09 | General Progress Note ---
Assessment/Plan Problem List: (1) Uncontrolled seizures ICD Codes: R56.9 - Unspecified convulsions SNOMED: 45063798 (2) Ophthalmic herpes zoster ICD Codes: B02.30 - Zoster ocular disease, unspecified SNOMED: 47764097 (3) Seizure disorder ICD Codes: G40.909 - Epilepsy, unspecified, not intractable, without status epilepticus SNOMED: 974773190 Status: unchanged Assessment/Plan ot pt diet seizure control cbc bmp am dc plan Subjective Constitutional: Reports: weakness Allergies: Coded Allergies: SHELLFISH DERIVED (Verified Allergy, Intermediate, 08/14/17) Dust (Verified Allergy, Unknown, 08/14/17) MOLD (Verified Allergy, Unknown, 08/14/17) WHEAT (Verified Allergy, Unknown, 08/14/17) All Systems: reviewed and negative except above Subjective o2nc confused in bed Objective Last 24 Hour Vital Signs Date Time Temp Pulse Resp B/P (MAP) Pulse Ox O2 Delivery O2 Flow Rate FiO2 08/16/17 04:45 Nasal Cannula 2.0 08/16/17 04:36 97.7 62 21 109/48 100 Nasal Cannula 08/16/17 00:00 97.8 89 21 129/60 100 Nasal Cannula 08/16/17 00:00 Nasal Cannula 2.0 08/15/17 23:31 Nasal Cannula 2.0 28 08/15/17 23:30 97 Nasal Cannula 2.0 28 08/15/17 20:01 97.7 83 18 118/56 Room Air 08/15/17 20:00 74 08/15/17 16:00 90 08/15/17 16:00 98.6 71 18 115/54 98 Nasal Cannula 2.0 08/15/17 12:00 96.4 69 18 118/72 100 Nasal Cannula 2.0 08/15/17 12:00 69 08/15/17 11:15 98 Nasal Cannula 2.0 28 08/15/17 11:15 Nasal Cannula 2.0 28 Intake and Output 08/15/17 08/16/17 19:00 07:00 Intake Total 250 ml Balance 250 ml Intake Oral 250 ml # Voids 2 2 Laboratory Tests 08/15/17 15:40: Valproic Acid (Depakene) Level 102H 08/16/17 07:35: White Blood Count 6.0, Red Blood Count 4.01L, Hemoglobin 13.0, Hematocrit 38.7, Mean Corpuscular Volume 97, Mean Corpuscular Hemoglobin 32.5H, Mean Corpuscular Hemoglobin Concent 33.7, Red Cell Distribution Width 11.9, Platelet Count 201, Mean Platelet Volume 9.9, Neutrophils (%) (Auto) 43.6L, Lymphocytes (%) (Auto) 46.7H, Monocytes (%) (Auto) 6.8, Eosinophils (%) (Auto) 1.4, Basophils (%) (Auto ) 1.5, Sodium Level 144, Potassium Level 4.3, Chloride Level 109H, Carbon Dioxide Level 31, Anion Gap 4L, Blood Urea Nitrogen 17, Creatinine 0.7, Estimat Glomerular Filtration Rate , Glucose Level 80, Calcium Level 8.3L Height (Feet): 5 Height (Inches): 1.00 Weight (Pounds): 124 General Appearance: lethargic, confused EENT: normal ENT inspection Neck: normal alignment Cardiovascular: normal peripheral pulses, normal rate, regular rhythm Respiratory/Chest: chest wall non-tender, lungs clear, normal breath sounds Abdomen: normal bowel sounds, non tender, soft Extremities: normal inspection Edema: no edema noted Arm (L), no edema noted Arm (R), no edema noted Leg (L), no edema noted Leg (R), no edema noted Pedal (L), no edema noted Pedal (R), no edema noted Generalized Neurologic: motor weakness Skin: normal pigmentation, warm/dry HERNANDEZ CRAWFORD Aug 16, 2017 09:09
[2017-08-16] MEDS: Memantine 10mg tab ORAL SCH ×2 (09:41→17:21)
[2017-08-16] MEDS: Heparin 5000 units/ml inj SUBQ SCH ×2 (09:44→21:17)
[2017-08-16 12:00] VITALS: BP 108/51
--- NOTE | 2017-08-16 13:22 | Pulmonology Progress Note ---
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 acute encephalopathy on chronic advanced dementia COPD PLAN OF CARE CT head with marked chronic and age related changes, no acute findings Neuro follows Seizure precautions (Depakote level adjusted) and Ativan prn for breakthrough seizure IVF ID follows Acyclovir Per ID if recurrence of HZV will need skin biopsy to r/o malignancy Slope Tender seen and evaluated, no evidence of ocular involvement DVT prophylaxis pain management PT/OT Consider psych eval per PMD discretion case discussed and evaluated by supervising physician Subjective Allergies: Coded Allergies: SHELLFISH DERIVED (Verified Allergy, Intermediate, 08/14/17) Dust (Verified Allergy, Unknown, 08/14/17) MOLD (Verified Allergy, Unknown, 08/14/17) WHEAT (Verified Allergy, Unknown, 08/14/17) Subjective no further seizure activity Objective Last 24 Hour Vital Signs Date Time Temp Pulse Resp B/P (MAP) Pulse Ox O2 Delivery O2 Flow Rate FiO2 08/16/17 12:00 97.7 64 18 108/51 99 08/16/17 08:25 Nasal Cannula 2.0 28 08/16/17 08:25 62 Nasal Cannula 2.0 28 08/16/17 08:00 97.6 62 18 110/50 99 08/16/17 04:45 Nasal Cannula 2.0 08/16/17 04:36 97.7 62 21 109/48 100 Nasal Cannula 08/16/17 00:00 97.8 89 21 129/60 100 Nasal Cannula 08/16/17 00:00 Nasal Cannula 2.0 08/15/17 23:31 Nasal Cannula 2.0 28 08/15/17 23:30 97 Nasal Cannula 2.0 28 08/15/17 20:01 97.7 83 18 118/56 Room Air 08/15/17 20:00 74 08/15/17 16:00 90 08/15/17 16:00 98.6 71 18 115/54 98 Nasal Cannula 2.0 Intake and Output 08/15/17 08/16/17 19:00 07:00 Intake Total 250 ml Balance 250 ml Intake Oral 250 ml # Voids 2 2 General Appearance: WD/WN, no acute distress HEENT: normocephalic, atraumatic, other - l Erythematous face lesion in left eyebrow with shallow ulceration Respiratory/Chest: lungs clear, no respiratory distress Cardiovascular: normal peripheral pulses, normal rate Abdomen: soft, non tender Extremities: no edema, pedal pulses normal Neurologic/Psychiatric: alert Musculoskeletal: atrophy - BLE Microbiology Date/Time Source Procedure Growth Status 08/14/17 19:30 Nasal Nares MRSA Culture - Final NO METHICILLIN RESISTANT STAPH AUREUS... Complete 08/14/17 19:30 Rectum VRE Culture - Final NO VANCOMYCIN RESISTANT ENTEROCOCCUS ... Complete Laboratory Tests 08/15/17 15:40: Valproic Acid (Depakene) Level 102H 08/16/17 07:35: White Blood Count 6.0, Red Blood Count 4.01L, Hemoglobin 13.0, Hematocrit 38.7, Mean Corpuscular Volume 97, Mean Corpuscular Hemoglobin 32.5H, Mean Corpuscular Hemoglobin Concent 33.7, Red Cell Distribution Width 11.9, Platelet Count 201, Mean Platelet Volume 9.9, Neutrophils (%) (Auto) 43.6L, Lymphocytes (%) (Auto) 46.7H, Monocytes (%) (Auto) 6.8, Eosinophils (%) (Auto) 1.4, Basophils (%) (Auto ) 1.5, Sodium Level 144, Potassium Level 4.3, Chloride Level 109H, Carbon Dioxide Level 31, Anion Gap 4L, Blood Urea Nitrogen 17, Creatinine 0.7, Estimat Glomerular Filtration Rate , Glucose Level 80, Calcium Level 8.3L Current Medications Medications (Trade) Dose Ordered Sig/Chadwick Route PRN Reason Start Time Stop Time Status Last Admin Dose Admin Acetaminophen (Tylenol) 650 mg Q4H PRN ORAL fever 08/15/17 23:15 09/13/17 15:14 Acyclovir (Zovirax) 800 mg EVERY 6 HOURS ORAL 08/16/17 00:00 09/14/17 11:59 08/16/17 12:37 Al Hydroxide/Mg Hydroxide (Mylanta II) 30 ml Q6H PRN ORAL dyspepsia 08/16/17 03:15 09/13/17 15:14 Dextrose (Dextrose 50%) STAT PRN IV Hypoglycemia 08/16/17 15:15 09/13/17 15:14 Donepezil HCl (Aricept) 10 mg QHS ORAL 08/16/17 21:00 09/15/17 20:59 Heparin Sodium (Porcine) (Heparin 5000 units/ml) 5,000 units EVERY 12 HOURS SUBQ 08/16/17 09:00 09/13/17 20:59 08/16/17 09:44 Lorazepam (Ativan 2mg/ml 1ml) 1 mg Q1HR PRN IV For Anxiety 08/16/17 00:00 08/21/17 23:44 Lorazepam (Ativan 2mg/ml 1ml) 2 mg Q1H PRN IV seizures 08/15/17 23:15 08/21/17 15:14 Memantine (Namenda) 10 mg BID ORAL 08/16/17 09:00 09/15/17 08:59 08/16/17 09:41 Morphine Sulfate (Morphine Sulfate) 1 mg Q4H PRN IVP For Pain 08/15/17 23:15 08/21/17 15:14 Ondansetron HCl (Zofran) 4 mg Q6H PRN IVP Nausea & Vomiting 08/16/17 03:15 09/13/17 15:14 Polyethylene Glycol (Miralax) 17 gm HSPRN PRN ORAL Constipation 08/16/17 15:15 09/13/17 15:14 Risperidone (RisperDAL) 0.5 mg QPM ORAL 08/16/17 16:30 09/15/17 16:29 Valproic Acid (Depakene) 750 mg Q12HR@0600,1800 ORAL 08/16/17 06:00 09/14/17 05:59 08/16/17 06:02 Zolpidem Tartrate (Ambien) 5 mg HSPRN PRN ORAL Insomnia 08/16/17 15:15 08/21/17 15:14 [facility]Hel[facility] HospitalMeli Mcpherson NP Aug 16, 2017 13:22
[2017-08-16] MEDS ORDERED: Miralax 17gm pkt ORAL PRN (15:15)
[2017-08-16] MEDS ORDERED: Zolpidem 5mg tab ORAL PRN (15:15)
[2017-08-16 16:00] VITALS: BP 119/53
--- NOTE | 2017-08-16 18:42 | Wound Care Consultation ---
Wound Assessment Wound Assessment #1: Wound Number: 1 Wound Present on Admission: Yes New Wound: No Status Change of Wound: No Wound Location Body Site Modif: right Wound Location Body Site: buttocks Wound Type: pressure ulcer Sobia Test: Does not Sobia Pressure Ulcer Stage: I Wound Length: 3.5 Wound Width: 2.0 Percent of Wound Sunol/Red: 100 Wound Drainage Amount: None Wound Drainage Odor: None/Absent Tissue Surrounding Wound: Intact Wound General Appearance: Reddened Wound Assessment #2: Wound Number: 2 Wound Present on Admission: Yes New Wound: No Status Change of Wound: No Wound Location Body Site Modif: mid Wound Location Body Site: other - sacrococcygeal Wound Type: pressure ulcer Sobia Test: Does not Sobia Pressure Ulcer Stage: I Wound Length: 4.5 Wound Width: 3.5 Percent of Wound Sunol/Red: 100 Wound Drainage Amount: None Wound Drainage Odor: None/Absent Tissue Surrounding Wound: Intact Wound General Appearance: Reddened Wound Assessment #3: Wound Number: 3 Wound Present on Admission: Yes New Wound: No Status Change of Wound: No Wound Location Body Site Modif: left Wound Location Body Site: nose - and eyebrow Wound Type: lesion-etiology unknown Sobia Test: Does not Sobia Wound Thickness: Full Thickness Percent of Wound Sunol/Red: 100 Wound Drainage Description: Serosanguineous Wound Drainage Amount: Scant Wound Drainage Odor: None/Absent Tissue Surrounding Wound: Erythemic Wound General Appearance: Reddened Wound Comment #1 Right buttock stage I pressure ulcer #2 Sacrococcygeal stage I pressure ulcer #3 Lesion on left eyebrow and nose #4 Dry scabs on right shoulder and left lower lateral leg Recommendation -Local wound care per protocol -Keep clean and dry -Offload both heels -Heel protector on both heels -Turn and reposition -F/u with MD for lesione on left eyebrow and left nose -Low air loss SPR mattress -Optimize nutrition -Assess and f/u accordingly for any changes GEMMA WAGGONER RN Aug 16, 2017 18:42
[2017-08-16 20:00] VITALS: BP 117/71
[2017-08-16] MEDS: Donepezil 10mg tab ORAL SCH (21:16)
[2017-08-17] VITALS: BP 127/68
[2017-08-17 04:00] VITALS: BP 148/86
[2017-08-17] MEDS: Valproic Acid 250mg/5ml Liquid ORAL SCH ×3 (05:56→18:00)
[2017-08-17 07:22] LABS: BASOPHILS % (AUTO) 0.8 % (0.0-2.0); EOSINOPHILS % (AUTO) 1.1 % (0.0-3.0); HEMATOCRIT 38.5 % (37.0-47.0); HEMOGLOBIN 13.2 G/DL (12.0-16.0); LYMPHOCYTES % (AUTO) 41.9 % (20.0-45.0); MEAN CORPUSCULAR VOLUME 97 FL (80-99); MONOCYTES % (AUTO) 7.7 % (1.0-10.0); NEUTROPHILS % (AUTO) 48.6 % (45.0-75.0); PLATELET COUNT 202 K/UL (150-450); RED BLOOD COUNT 3.98 M/UL (4.20-5.40); RED CELL DISTRIBUTION WIDTH 11.8 % (11.6-14.8); WHITE BLOOD COUNT 6.3 K/UL (4.8-10.8)
[2017-08-17 07:30] LABS: ANION GAP 7 mmol/L (5-15); BLOOD UREA NITROGEN 23 mg/dL (7-18); CALCIUM 8.4 MG/DL (8.5-10.1); CARBON DIOXIDE 30 MMOL/L (21-32); CHLORIDE 107 MMOL/L (98-107); CREATININE 0.8 MG/DL (0.55-1.30); SODIUM 144 MMOL/L (136-145)
[2017-08-17 08:00] VITALS: BP 142/83
--- NOTE | 2017-08-17 08:30 | General Progress Note ---
Assessment/Plan Problem List: (1) Uncontrolled seizures ICD Codes: R56.9 - Unspecified convulsions SNOMED: 30606975 (2) Ophthalmic herpes zoster ICD Codes: B02.30 - Zoster ocular disease, unspecified SNOMED: 23988999 (3) Seizure disorder ICD Codes: G40.909 - Epilepsy, unspecified, not intractable, without status epilepticus SNOMED: 758879029 Status: stable, progressing, tolerating diet Assessment/Plan ot pt diet seizure control cbc bmp am dc plan Subjective Constitutional: Reports: weakness Allergies: Coded Allergies: SHELLFISH DERIVED (Verified Allergy, Intermediate, 08/14/17) Dust (Verified Allergy, Unknown, 08/14/17) MOLD (Verified Allergy, Unknown, 08/14/17) WHEAT (Verified Allergy, Unknown, 08/14/17) All Systems: reviewed and negative except above Subjective o2nc confused in bed Objective Last 24 Hour Vital Signs Date Time Temp Pulse Resp B/P (MAP) Pulse Ox O2 Delivery O2 Flow Rate FiO2 08/17/17 04:00 97.9 68 20 148/86 98 08/17/17 04:00 Nasal Cannula 2.0 08/17/17 00:00 97.9 90 20 127/68 100 08/16/17 22:51 Nasal Cannula 2.0 28 08/16/17 22:50 92 Nasal Cannula 2.0 28 08/16/17 20:00 Nasal Cannula 2.0 08/16/17 20:00 98.1 88 20 117/71 98 08/16/17 16:00 97.5 70 18 119/53 95 08/16/17 12:00 97.7 64 18 108/51 99 Intake and Output 08/16/17 08/17/17 19:00 07:00 Intake Total 540 ml 120 ml Balance 540 ml 120 ml Intake Oral 540 ml 120 ml # Voids 3 3 # Bowel Movements 1 Laboratory Tests 08/17/17 06:55: White Blood Count 6.3, Red Blood Count 3.98L, Hemoglobin 13.2, Hematocrit 38.5, Mean Corpuscular Volume 97, Mean Corpuscular Hemoglobin 33.2H, Mean Corpuscular Hemoglobin Concent 34.3, Red Cell Distribution Width 11.8, Platelet Count 202, Mean Platelet Volume 9.7, Neutrophils (%) (Auto) 48.6, Lymphocytes (%) (Auto) 41.9, Monocytes (%) (Auto) 7.7, Eosinophils (%) (Auto) 1.1, Basophils (%) (Auto ) 0.8, Sodium Level 144, Potassium Level 4.0, Chloride Level 107, Carbon Dioxide Level 30, Anion Gap 7, Blood Urea Nitrogen 23H, Creatinine 0.8, Estimat Glomerular Filtration Rate , Glucose Level 90, Calcium Level 8.4L Height (Feet): 5 Height (Inches): 1.00 Weight (Pounds): 124 General Appearance: lethargic EENT: normal ENT inspection Neck: normal alignment Cardiovascular: normal peripheral pulses, normal rate, regular rhythm Respiratory/Chest: chest wall non-tender, lungs clear, normal breath sounds Abdomen: normal bowel sounds, non tender, soft Extremities: normal inspection Edema: no edema noted Arm (L), no edema noted Arm (R), no edema noted Leg (L), no edema noted Leg (R), no edema noted Pedal (L), no edema noted Pedal (R), no edema noted Generalized Neurologic: motor weakness Skin: normal pigmentation, warm/dry HERNANDEZ CRAWFORD Aug 17, 2017 08:30
[2017-08-17] MEDS: Memantine 10mg tab ORAL SCH ×2 (08:46→17:19)
[2017-08-17] MEDS: Heparin 5000 units/ml inj SUBQ SCH ×2 (08:47→21:26)
[2017-08-17 12:00] VITALS: BP 140/80
--- NOTE | 2017-08-17 14:02 | Infectious Diseases Prog Note ---
Assessment/Plan Assessment/Plan A; Facial herpes zoster Seizure disorder Encephalopathy COPD P; continue Po Acyclovir Subjective ROS Limited/Unobtainable: Yes Allergies: Coded Allergies: SHELLFISH DERIVED (Verified Allergy, Intermediate, 08/14/17) Dust (Verified Allergy, Unknown, 08/14/17) MOLD (Verified Allergy, Unknown, 08/14/17) WHEAT (Verified Allergy, Unknown, 08/14/17) Objective Vital Signs Last 24 Hour Vital Signs Date Time Temp Pulse Resp B/P (MAP) Pulse Ox O2 Delivery O2 Flow Rate FiO2 08/17/17 12:00 97.9 66 18 140/80 97 08/17/17 08:00 98.0 62 18 142/83 98 08/17/17 04:00 97.9 68 20 148/86 98 08/17/17 04:00 Nasal Cannula 2.0 08/17/17 00:00 97.9 90 20 127/68 100 08/16/17 22:51 Nasal Cannula 2.0 28 08/16/17 22:50 92 Nasal Cannula 2.0 28 08/16/17 20:00 Nasal Cannula 2.0 08/16/17 20:00 98.1 88 20 117/71 98 08/16/17 16:00 97.5 70 18 119/53 95 Height (Feet): 5 Height (Inches): 1.00 Weight (Pounds): 124 General Appearance: no acute distress HEENT: mucous membranes moist Respiratory/Chest: lungs clear Cardiovascular: normal rate Abdomen: soft, non tender Extremities: no edema Skin: rash, ulcers, other - left eyebrow Neurologic/Psychiatric: responsive, aphasia Microbiology Date/Time Source Procedure Growth Status 08/14/17 19:30 Nasal Nares MRSA Culture - Final NO METHICILLIN RESISTANT STAPH AUREUS... Complete 08/14/17 19:30 Rectum VRE Culture - Final NO VANCOMYCIN RESISTANT ENTEROCOCCUS ... Complete Laboratory Tests Test 08/17/17 06:55 White Blood Count 6.3 K/UL (4.8-10.8) Red Blood Count 3.98 M/UL (4.20-5.40) L Hemoglobin 13.2 G/DL (12.0-16.0) Hematocrit 38.5 % (37.0-47.0) Mean Corpuscular Volume 97 FL (80-99) Mean Corpuscular Hemoglobin 33.2 PG (27.0-31.0) H Mean Corpuscular Hemoglobin Concent 34.3 G/DL (32.0-36.0) Red Cell Distribution Width 11.8 % (11.6-14.8) Platelet Count 202 K/UL (150-450) Mean Platelet Volume 9.7 FL (6.5-10.1) Neutrophils (%) (Auto) 48.6 % (45.0-75.0) Lymphocytes (%) (Auto) 41.9 % (20.0-45.0) Monocytes (%) (Auto) 7.7 % (1.0-10.0) Eosinophils (%) (Auto) 1.1 % (0.0-3.0) Basophils (%) (Auto) 0.8 % (0.0-2.0) Sodium Level 144 MMOL/L (136-145) Potassium Level 4.0 MMOL/L (3.5-5.1) Chloride Level 107 MMOL/L (98-107) Carbon Dioxide Level 30 MMOL/L (21-32) Anion Gap 7 mmol/L (5-15) Blood Urea Nitrogen 23 mg/dL (7-18) H Creatinine 0.8 MG/DL (0.55-1.30) Estimat Glomerular Filtration Rate mL/min (>60) Glucose Level 90 MG/DL (74-106) Calcium Level 8.4 MG/DL (8.5-10.1) L Current Medications Medications (Trade) Dose Ordered Sig/Chadwick Route PRN Reason Start Time Stop Time Status Last Admin Dose Admin Acetaminophen (Tylenol) 650 mg Q4H PRN ORAL fever 08/15/17 23:15 09/13/17 15:14 Acyclovir (Zovirax) 800 mg EVERY 6 HOURS ORAL 08/16/17 00:00 09/14/17 11:59 08/17/17 11:12 Al Hydroxide/Mg Hydroxide (Mylanta II) 30 ml Q6H PRN ORAL dyspepsia 08/16/17 03:15 09/13/17 15:14 Dextrose (Dextrose 50%) STAT PRN IV Hypoglycemia 08/16/17 15:15 09/13/17 15:14 Donepezil HCl (Aricept) 10 mg QHS ORAL 08/16/17 21:00 09/15/17 20:59 08/16/17 21:16 Heparin Sodium (Porcine) (Heparin 5000 units/ml) 5,000 units EVERY 12 HOURS SUBQ 08/16/17 09:00 09/13/17 20:59 08/17/17 08:47 Lorazepam (Ativan 2mg/ml 1ml) 1 mg Q1HR PRN IV For Anxiety 08/16/17 00:00 08/21/17 23:44 Lorazepam (Ativan 2mg/ml 1ml) 2 mg Q1H PRN IV seizures 08/15/17 23:15 08/21/17 15:14 Memantine (Namenda) 10 mg BID ORAL 08/16/17 09:00 09/15/17 08:59 08/17/17 08:46 Morphine Sulfate (Morphine Sulfate) 1 mg Q4H PRN IVP For Pain 08/15/17 23:15 08/21/17 15:14 Ondansetron HCl (Zofran) 4 mg Q6H PRN IVP Nausea & Vomiting 08/16/17 03:15 09/13/17 15:14 Polyethylene Glycol (Miralax) 17 gm HSPRN PRN ORAL Constipation 08/16/17 15:15 09/13/17 15:14 Risperidone (RisperDAL) 0.5 mg QPM ORAL 08/16/17 16:30 09/15/17 16:29 08/16/17 17:21 Valproic Acid (Depakene) 750 mg Q12HR@0600,1800 ORAL 08/16/17 06:00 09/14/17 05:59 08/17/17 05:56 Zolpidem Tartrate (Ambien) 5 mg HSPRN PRN ORAL Insomnia 08/16/17 15:15 08/21/17 15:14 PIERRE RAY Aug 17, 2017 14:02
[2017-08-17 15:47] VITALS: BP 128/57
--- NOTE | 2017-08-17 16:24 | Pulmonology Progress Note ---
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 acute encephalopathy on chronic advanced dementia COPD PLAN OF CARE CT head with marked chronic and age related changes, no acute findings Neuro follows Seizure precautions (Depakote level adjusted) and Ativan prn for breakthrough seizure IVF ID follows Acyclovir Per ID if recurrence of HZV will need skin biopsy to r/o malignancy Screen Printing Equipment Setter seen and evaluated, no evidence of ocular involvement DVT prophylaxis pain management PT/OT Consider psych eval per PMD discretion dc plan as per atending case discussed and evaluated by supervising physician Subjective Allergies: Coded Allergies: SHELLFISH DERIVED (Verified Allergy, Intermediate, 08/14/17) Dust (Verified Allergy, Unknown, 08/14/17) MOLD (Verified Allergy, Unknown, 08/14/17) WHEAT (Verified Allergy, Unknown, 08/14/17) Subjective no further seizure activity Objective Last 24 Hour Vital Signs Date Time Temp Pulse Resp B/P (MAP) Pulse Ox O2 Delivery O2 Flow Rate FiO2 08/17/17 15:47 98.2 75 20 128/57 97 08/17/17 12:00 97.9 66 18 140/80 97 08/17/17 08:00 98.0 62 18 142/83 98 08/17/17 04:00 97.9 68 20 148/86 98 08/17/17 04:00 Nasal Cannula 2.0 08/17/17 00:00 97.9 90 20 127/68 100 08/16/17 22:51 Nasal Cannula 2.0 28 08/16/17 22:50 92 Nasal Cannula 2.0 28 08/16/17 20:00 Nasal Cannula 2.0 08/16/17 20:00 98.1 88 20 117/71 98 Intake and Output 08/16/17 08/17/17 19:00 07:00 Intake Total 540 ml 120 ml Balance 540 ml 120 ml Intake Oral 540 ml 120 ml # Voids 3 3 # Bowel Movements 1 Objective General Appearance: WD/WN, no acute distress HEENT: normocephalic, atraumatic, Erythematous face lesion in left eyebrow with shallow ulceration Respiratory/Chest: lungs clear, no respiratory distress Cardiovascular: normal peripheral pulses, normal rate Abdomen: soft, non tender Extremities: no edema, pedal pulses normal Neurologic/Psychiatric: alert Musculoskeletal: atrophy - BLE Microbiology Date/Time Source Procedure Growth Status 08/14/17 19:30 Nasal Nares MRSA Culture - Final NO METHICILLIN RESISTANT STAPH AUREUS... Complete 08/14/17 19:30 Rectum VRE Culture - Final NO VANCOMYCIN RESISTANT ENTEROCOCCUS ... Complete Laboratory Tests 08/17/17 06:55: White Blood Count 6.3, Red Blood Count 3.98L, Hemoglobin 13.2, Hematocrit 38.5, Mean Corpuscular Volume 97, Mean Corpuscular Hemoglobin 33.2H, Mean Corpuscular Hemoglobin Concent 34.3, Red Cell Distribution Width 11.8, Platelet Count 202, Mean Platelet Volume 9.7, Neutrophils (%) (Auto) 48.6, Lymphocytes (%) (Auto) 41.9, Monocytes (%) (Auto) 7.7, Eosinophils (%) (Auto) 1.1, Basophils (%) (Auto ) 0.8, Sodium Level 144, Potassium Level 4.0, Chloride Level 107, Carbon Dioxide Level 30, Anion Gap 7, Blood Urea Nitrogen 23H, Creatinine 0.8, Estimat Glomerular Filtration Rate , Glucose Level 90, Calcium Level 8.4L Current Medications Medications (Trade) Dose Ordered Sig/Chadwick Route PRN Reason Start Time Stop Time Status Last Admin Dose Admin Acetaminophen (Tylenol) 650 mg Q4H PRN ORAL fever 08/15/17 23:15 09/13/17 15:14 Acyclovir (Zovirax) 800 mg EVERY 6 HOURS ORAL 08/16/17 00:00 09/14/17 11:59 08/17/17 11:12 Al Hydroxide/Mg Hydroxide (Mylanta II) 30 ml Q6H PRN ORAL dyspepsia 08/16/17 03:15 09/13/17 15:14 Dextrose (Dextrose 50%) STAT PRN IV Hypoglycemia 08/16/17 15:15 09/13/17 15:14 Donepezil HCl (Aricept) 10 mg QHS ORAL 08/16/17 21:00 09/15/17 20:59 08/16/17 21:16 Heparin Sodium (Porcine) (Heparin 5000 units/ml) 5,000 units EVERY 12 HOURS SUBQ 08/16/17 09:00 09/13/17 20:59 08/17/17 08:47 Lorazepam (Ativan 2mg/ml 1ml) 1 mg Q1HR PRN IV For Anxiety 08/16/17 00:00 08/21/17 23:44 Lorazepam (Ativan 2mg/ml 1ml) 2 mg Q1H PRN IV seizures 08/15/17 23:15 08/21/17 15:14 Memantine (Namenda) 10 mg BID ORAL 08/16/17 09:00 09/15/17 08:59 08/17/17 08:46 Morphine Sulfate (Morphine Sulfate) 1 mg Q4H PRN IVP For Pain 08/15/17 23:15 08/21/17 15:14 Ondansetron HCl (Zofran) 4 mg Q6H PRN IVP Nausea & Vomiting 08/16/17 03:15 09/13/17 15:14 Polyethylene Glycol (Miralax) 17 gm HSPRN PRN ORAL Constipation 08/16/17 15:15 09/13/17 15:14 Risperidone (RisperDAL) 0.5 mg QPM ORAL 08/16/17 16:30 09/15/17 16:29 08/17/17 15:34 Valproic Acid (Depakene) 750 mg Q12HR@0600,1800 ORAL 08/16/17 06:00 09/14/17 05:59 08/17/17 05:56 Zolpidem Tartrate (Ambien) 5 mg HSPRN PRN ORAL Insomnia 08/16/17 15:15 08/21/17 15:14 [facility] Hospital[facility]eli Mcpherson NP Aug 17, 2017 16:24
[2017-08-17 20:26] VITALS: BP 138/46
[2017-08-17] MEDS: Donepezil 10mg tab ORAL SCH (21:23)
--- NOTE | 2017-08-17 21:45 | Progress Note ---
DATE: 08/17/2017 SUBJECTIVE: The patient is a 72-year-old female patient with seizure disorder. She has some confusion, disorganized thought process, mood lability, altered mental status. Her cognition has declined below baseline. MENTAL STATUS EXAMINATION: A 72-year-old female, psychomotor retardation. Mood is depressed. Affect flat. Thought process disorganized and illogical. No signs of any suicidal or homicidal thoughts. Insight and judgment is poor. DIAGNOSIS: Schizoaffective bipolar type. PLAN: Treat with Depakote 750 mg twice a day, Aricept 10 mg nightly, Namenda 10 mg twice a day, and Risperdal 0.5 mg nightly. I encouraged her to interact appropriately with staff and other patients. Chart reviewed and discussed with staff. Seen and assessed at bedside. Meghann Dailey M.D. DR: Vinicius JOB#: [id number] CC:
[2017-08-18] VITALS: BP 135/71
[2017-08-18 04:46] VITALS: BP 138/71
[2017-08-18] MEDS: Valproic Acid 250mg/5ml Liquid ORAL SCH ×2 (05:31→18:43)
[2017-08-18 07:55] LABS: BASOPHILS % (AUTO) 1.2 % (0.0-2.0); HEMATOCRIT 39.1 % (37.0-47.0); HEMOGLOBIN 13.9 G/DL (12.0-16.0); LYMPHOCYTES % (AUTO) 41.1 % (20.0-45.0); MEAN CORPUSCULAR VOLUME 96 FL (80-99); MONOCYTES % (AUTO) 11.4 % (1.0-10.0); NEUTROPHILS % (AUTO) 45.3 % (45.0-75.0); PLATELET COUNT 194 K/UL (150-450); RED BLOOD COUNT 4.06 M/UL (4.20-5.40); RED CELL DISTRIBUTION WIDTH 11.4 % (11.6-14.8)
[2017-08-18 08:00] VITALS: BP 127/74
[2017-08-18 08:10] LABS: ANION GAP 7 mmol/L (5-15); BLOOD UREA NITROGEN 17 mg/dL (7-18); CALCIUM 8.4 MG/DL (8.5-10.1); CARBON DIOXIDE 29 MMOL/L (21-32); CHLORIDE 106 MMOL/L (98-107); CREATININE 0.7 MG/DL (0.55-1.30); SODIUM 142 MMOL/L (136-145)
--- NOTE | 2017-08-18 08:30 | Consultation ---
DATE OF CONSULTATION: 08/16/2017 NOTE: Document contains blank. CONSULTING PHYSICIAN: Meghann Dailey M.D. HISTORY OF PRESENT ILLNESS: The patient is a female patient. She is 72 years old. She is admitted to the hospital at [facility]. Reason for her admission is because this patient came in with a seizure disorder. She lives in a half-way. She has altered mental status. Her verbal output is limited. She is confused and disorganized, so she came in for those medical reasons, specifically seizure disorder, but because of her cognition declining below baseline, she does require just a psychiatric followup to manage her behavior. She has feelings of helplessness, hopelessness, low energy, poor appetite, and lost of interest in activity. SUBSTANCE ABUSE HISTORY: Denies drug or alcohol use. SOCIAL HISTORY: The patient is financially supported by [employer] and Medicare. She is currently living at [facility]. ALLERGIES: She is allergic to dust, mold, shellfish, and wheat. PSYCHOTROPIC MEDICATIONS ON ADMISSION: The patient is on Namenda 10 mg twice a day, Aricept 10 mg nightly, Risperdal 0.5 mg q.p.m., and also on Depakote 750 mg q.12 h. MENTAL STATUS EXAMINATION: This is a 72-year-old female with psychomotor retardation. Mood is depressed. Affect guarded and restricted. Thought process is disorganized and illogical. Has some paranoid delusions. No signs of any suicidal or homicidal thoughts, but insight and judgment is poor. Orientation x2. Memory is 0 out word recall. Insight and judgment is poor. DIAGNOSIS: Schizoaffective, bipolar type, rule out dementia with psychosis. PLAN: My plan for this patient is to treat her with Depakote 750 mg twice a day to stabilize her mood, Risperdal 0.5 mg q.p.m. for psychosis and agitation, Aricept 10 mg nightly to prevent any further decline in cognition, and Namenda 10 mg twice a day. Also to augment the Aricept to prevent any further decline in her cognition. She was seen and assessed at bedside. Her attending physician Dr. Jaziel Arana has requested daily psychiatric consultation. So, I will continue to follow this patient daily throughout hospital course to prevent any further decline in her cognition and stabilize her mood. Chart reviewed and discussed with staff. Seen and assessed at bedside. I would like to thank, Dr. Jaziel Arana, for this interesting consultation. Meghann Dailey M.D. DR: MCKENIZE JOB#: [id number] CC:
--- NOTE | 2017-08-18 08:30 | Consultation ---
DATE OF CONSULTATION: 08/15/2017 PSYCHOTHERAPY CONSULTATION PROGRESS NOTE CONSULTING PHYSICIAN: Erik Abel M.D. TREATING ATTENDING PHYSICIAN: Jaziel Arana D.O. HISTORY OF PRESENT ILLNESS: This patient is a 72-year-old female patient. The patient has a history of encephalopathy and seizures. She 00:31. The patient apparently had a seizure and it was witnessed and she was admitted to the emergency room and to the hospital for this reason. She is very confused and disorganized in her thought process. The patient is forgetful and for these reasons referred for psychotherapeutic services. The clinician assessed this patient. The patient is a 72-year-old female patient. The patient does remember having a seizure because she remembers being told she had a seizure. The patient is confused otherwise, does not recall what she did prior to the seizures and do not recall the name of the 01:21 she is from. She is cooperative and able to communicate with this clinician. She is forgetful and disorganized in her thought process. Denies suicidal or homicidal thoughts of ideation. Denies any auditory or visual hallucinations; however, is confused and disoriented. The patient states that she continues to have 01:44. PAST MEDICAL HISTORY: Includes a history of encephalopathy and seizures. ALLERGIES: The patient has no known drug allergies. SUBSTANCE ABUSE HISTORY: The patient does have a history of smoking cigarettes and is drinking alcohol. Denies history of illicit substance use. PSYCHIATRIC HISTORY: The patient states she has a history of depression. SOCIAL HISTORY: The patient is a 72-year-old female from 02:15. Financially sustained through [employer]. She is a female patient. MENTAL STATUS EXAMINATION: The patient is alert and oriented x2 to person and place. Her mood is depressed. Affect is blunted. Thought process disorganized. Thought content slightly confused. The patient has poor attention and concentration. Poor insight, judgment, and impulse control. DIAGNOSIS: Rule out major depressive disorder, single episode, moderate without psychotic features. This clinician assessed this patient. Provided the patient with supportive psychotherapy, provided the patient with reality orientation, provided patient with encouragement to support to participate in milieu, 03:07 increasing patient's coping skills, compliance 03:09 providing her with encouragement support to participate 03:15 and proper communication skills. Continue with behavioral management. This clinician has reviewed the patient's chart and discussed the treatment with treatment team. Erik Abel PsyD. DR: KAYLIE JOB#: [id number] CC:
[2017-08-18] MEDS: Memantine 10mg tab ORAL SCH ×2 (08:33→18:43)
[2017-08-18] MEDS: Heparin 5000 units/ml inj SUBQ SCH ×2 (08:35→21:22)
[2017-08-18 12:20] VITALS: BP 117/73
--- NOTE | 2017-08-18 14:11 | General Progress Note ---
Assessment/Plan Problem List: (1) Uncontrolled seizures ICD Codes: R56.9 - Unspecified convulsions SNOMED: 76272001 (2) Ophthalmic herpes zoster ICD Codes: B02.30 - Zoster ocular disease, unspecified SNOMED: 19049430 (3) Seizure disorder ICD Codes: G40.909 - Epilepsy, unspecified, not intractable, without status epilepticus SNOMED: 768231565 Status: stable, progressing, tolerating diet Assessment/Plan ot pt diet seizure control dc plan Subjective Allergies: Coded Allergies: SHELLFISH DERIVED (Verified Allergy, Intermediate, 08/14/17) Dust (Verified Allergy, Unknown, 08/14/17) MOLD (Verified Allergy, Unknown, 08/14/17) WHEAT (Verified Allergy, Unknown, 08/14/17) All Systems: reviewed and negative except above Subjective o2nc confused in bed Objective Last 24 Hour Vital Signs Date Time Temp Pulse Resp B/P (MAP) Pulse Ox O2 Delivery O2 Flow Rate FiO2 08/18/17 12:20 97.4 18 117/73 100 Nasal Cannula 2.0 08/18/17 08:00 97.5 74 19 127/74 100 Nasal Cannula 2.0 08/18/17 04:46 96.6 67 18 138/71 98 Room Air 08/18/17 00:00 98 08/18/17 00:00 97.6 70 18 135/71 Nasal Cannula 2.0 08/17/17 23:13 68 Nasal Cannula 2.0 28 08/17/17 23:13 Nasal Cannula 2.0 28 08/17/17 20:26 97.3 75 18 138/46 99 Nasal Cannula 2.0 08/17/17 15:47 98.2 75 20 128/57 97 Intake and Output 08/17/17 08/18/17 19:00 07:00 Intake Total 120 ml 120 ml Balance 120 ml 120 ml Intake Oral 120 ml 120 ml # Voids 2 2 # Bowel Movements 1 Laboratory Tests 08/18/17 07:10: White Blood Count 6.0, Red Blood Count 4.06L, Hemoglobin 13.9, Hematocrit 39.1, Mean Corpuscular Volume 96, Mean Corpuscular Hemoglobin 34.3H, Mean Corpuscular Hemoglobin Concent 35.6, Red Cell Distribution Width 11.4L, Platelet Count 194, Mean Platelet Volume 9.7, Neutrophils (%) (Auto) 45.3, Lymphocytes (%) (Auto) 41.1, Monocytes (%) (Auto) 11.4H, Eosinophils (%) (Auto) 1.0, Basophils (%) ( Auto) 1.2, Sodium Level 142, Potassium Level 4.0, Chloride Level 106, Carbon Dioxide Level 29, Anion Gap 7, Blood Urea Nitrogen 17, Creatinine 0.7, Estimat Glomerular Filtration Rate , Glucose Level 91, Calcium Level 8.4L Height (Feet): 5 Height (Inches): 1.00 Weight (Pounds): 124 General Appearance: lethargic, confused EENT: normal ENT inspection Neck: normal alignment Cardiovascular: normal peripheral pulses, normal rate, regular rhythm Respiratory/Chest: chest wall non-tender, lungs clear, normal breath sounds Abdomen: normal bowel sounds, non tender, soft Extremities: normal inspection Edema: no edema noted Arm (L), no edema noted Arm (R), no edema noted Leg (L), no edema noted Leg (R), no edema noted Pedal (L), no edema noted Pedal (R), no edema noted Generalized Neurologic: motor weakness Skin: normal pigmentation, warm/dry HERNANDEZ CRAWFORD Aug 18, 2017 14:11
[2017-08-18] MEDS ORDERED: DEPAKENE L250 MG/5 M ORAL (14:56)
[2017-08-18] MEDS ORDERED: ACYCLOVIR800 MG ORAL (14:57)
[2017-08-18 15:57] VITALS: BP 128/72
[2017-08-18 20:00] VITALS: BP 132/68
[2017-08-18] MEDS: Donepezil 10mg tab ORAL SCH (21:17)
--- NOTE | 2017-08-18 23:02 | Pulmonology Progress Note ---
Assessment/Plan Problems: (1) Uncontrolled seizures (2) Depression (3) Ophthalmic herpes zoster Assessment/Plan neuro evaluation seizure precaution symptomatic treatment psych evaluation. On Acyclovir and valproic acid Subjective ROS Limited/Unobtainable: No Allergies: Coded Allergies: SHELLFISH DERIVED (Verified Allergy, Intermediate, 08/14/17) Dust (Verified Allergy, Unknown, 08/14/17) MOLD (Verified Allergy, Unknown, 08/14/17) WHEAT (Verified Allergy, Unknown, 08/14/17) Objective Last 24 Hour Vital Signs Date Time Temp Pulse Resp B/P (MAP) Pulse Ox O2 Delivery O2 Flow Rate FiO2 08/18/17 20:00 98.0 84 18 132/68 99 Room Air 08/18/17 16:14 98 Nasal Cannula 2.0 28 08/18/17 16:14 Nasal Cannula 2.0 28 08/18/17 15:57 97.0 19 128/72 99 Nasal Cannula 2.0 08/18/17 12:20 97.4 18 117/73 100 Nasal Cannula 2.0 08/18/17 08:00 97.5 74 19 127/74 100 Nasal Cannula 2.0 08/18/17 04:46 96.6 67 18 138/71 98 Room Air 08/18/17 00:00 98 08/18/17 00:00 97.6 70 18 135/71 Nasal Cannula 2.0 08/17/17 23:13 68 Nasal Cannula 2.0 28 08/17/17 23:13 Nasal Cannula 2.0 28 Intake and Output 08/17/17 08/18/17 19:00 07:00 Intake Total 120 ml 120 ml Balance 120 ml 120 ml Intake Oral 120 ml 120 ml # Voids 2 2 # Bowel Movements 1 Objective General Appearance: no acute distress HEENT: normocephalic, atraumatic Respiratory/Chest: lungs clear, no respiratory distress, no accessory muscle use Cardiovascular: normal rate, no JVD, CL-femoral intact Abdomen: normal bowel sounds, soft, non tender Extremities: no edema Neurologic/Psychiatric: alert, responsive Musculoskeletal: normal muscle bulk Laboratory Tests 08/18/17 07:10: White Blood Count 6.0, Red Blood Count 4.06L, Hemoglobin 13.9, Hematocrit 39.1, Mean Corpuscular Volume 96, Mean Corpuscular Hemoglobin 34.3H, Mean Corpuscular Hemoglobin Concent 35.6, Red Cell Distribution Width 11.4L, Platelet Count 194, Mean Platelet Volume 9.7, Neutrophils (%) (Auto) 45.3, Lymphocytes (%) (Auto) 41.1, Monocytes (%) (Auto) 11.4H, Eosinophils (%) (Auto) 1.0, Basophils (%) ( Auto) 1.2, Sodium Level 142, Potassium Level 4.0, Chloride Level 106, Carbon Dioxide Level 29, Anion Gap 7, Blood Urea Nitrogen 17, Creatinine 0.7, Estimat Glomerular Filtration Rate , Glucose Level 91, Calcium Level 8.4L Current Medications Medications (Trade) Dose Ordered Sig/Chadwick Route PRN Reason Start Time Stop Time Status Last Admin Dose Admin Acetaminophen (Tylenol) 650 mg Q4H PRN ORAL fever 08/15/17 23:15 09/13/17 15:14 Acyclovir (Zovirax) 800 mg EVERY 6 HOURS ORAL 08/16/17 00:00 09/14/17 11:59 08/18/17 18:43 Al Hydroxide/Mg Hydroxide (Mylanta II) 30 ml Q6H PRN ORAL dyspepsia 08/16/17 03:15 09/13/17 15:14 Dextrose (Dextrose 50%) STAT PRN IV Hypoglycemia 08/16/17 15:15 09/13/17 15:14 Donepezil HCl (Aricept) 10 mg QHS ORAL 08/16/17 21:00 09/15/17 20:59 08/18/17 21:17 Heparin Sodium (Porcine) (Heparin 5000 units/ml) 5,000 units EVERY 12 HOURS SUBQ 08/16/17 09:00 09/13/17 20:59 08/18/17 21:22 Lorazepam (Ativan 2mg/ml 1ml) 1 mg Q1HR PRN IV For Anxiety 08/16/17 00:00 08/21/17 23:44 Lorazepam (Ativan 2mg/ml 1ml) 2 mg Q1H PRN IV seizures 08/15/17 23:15 08/21/17 15:14 Memantine (Namenda) 10 mg BID ORAL 08/16/17 09:00 09/15/17 08:59 08/18/17 18:43 Morphine Sulfate (Morphine Sulfate) 1 mg Q4H PRN IVP For Pain 08/15/17 23:15 08/21/17 15:14 Ondansetron HCl (Zofran) 4 mg Q6H PRN IVP Nausea & Vomiting 08/16/17 03:15 09/13/17 15:14 Polyethylene Glycol (Miralax) 17 gm HSPRN PRN ORAL Constipation 08/16/17 15:15 09/13/17 15:14 Risperidone (RisperDAL) 0.5 mg QPM ORAL 08/16/17 16:30 09/15/17 16:29 08/18/17 15:50 Valproic Acid (Depakene) 750 mg Q12HR@0600,1800 ORAL 08/16/17 06:00 09/14/17 05:59 08/18/17 18:43 Zolpidem Tartrate (Ambien) 5 mg HSPRN PRN ORAL Insomnia 08/16/17 15:15 08/21/17 15:14 KANDACE SALGADO Aug 18, 2017 23:02
--- NOTE | 2017-08-20 21:52 | Discharge Summary ---
Discharge Summary Hospital Course Date of Admission Aug 14, 2017 at 17:22 Date of Discharge Aug 18, 2017 at 22:30 Admitting Diagnosis Seizure HPI Michelle Mcgarry is a 72 year old female who was admitted on Aug 14, 2017 at 17:22 for Seizure Hospital Course dc summary #[id number] Discharge Medications New Medications: Acyclovir* (Zovirax*) 800 Mg Tablet 800 MG ORAL EVERY 6 HOURS, #16 TAB Valproic Acid (Valproic Acid) 250 Mg/5 Ml Solution 750 MG ORAL Q12HR@0600,1800, #60 TAB Continued Medications: Donepezil Hcl* (Donepezil Hcl*) 10 Mg Tablet 10 MG ORAL BEDTIME, TAB Memantine Hcl* (Namenda*) 10 Mg Tablet 10 MG ORAL BID, TAB Multivitamins* (Multivitamins*) 1 Each Tablet 1 TAB ORAL DAILY, TAB 0 Refills Mupirocin* (Mupirocin*) 22 Gm Oint...g. 2 % TOPIC BID, GM Protein Supplement (Promod) 946 Ml Liquid 30 ML PO DAILY, ML Risperidone* (Risperdal*) 0.5 Mg Tablet 0.5 MG ORAL DAILY, #30 TAB 0 Refills Sennosides* (Sennosides*) 8.6 Mg Tablet 8.6 MG ORAL DAILY, TAB Valproate Sodium (Depakene) 250 Mg/5 Ml Solution 500 MG PO BID Discharge Condition Upon Discharge: stable Discharge Disposition Patient was discharged to SNF/Subacute Facility(03) Discharge Diagnoses: Can (Vancmoise),Meli ZARCO Aug 20, 2017 21:52
--- NOTE | 2017-08-21 18:45 | Discharge Summary 2 SIG ---
DATE OF ADMISSION: 08/14/2017 DATE OF DISCHARGE: 08/18/2017 REASON FOR ADMISSION: 72-year-old female with history of schizophrenia, left eyebrow and forehead herpes zoster infection, brought from the shelter facility for recurrent seizure. The patient was unable to provide any information and was not able to answer questions appropriately. Vital signs were stable. EKG revealed normal sinus rhythm. No acute ischemic changes. Chest x-ray revealed no acute cardiopulmonary pathology. No leukocytosis. Stable hemoglobin and hematocrit. Stable electrolytes. Troponin negative. Pro BNP -253. Albumin -3.2. Depakote level -68. CT of the head revealed chronic age related changes but no acute intracranial pathology. The patient was admitted with recurrent seizures, encephalopathy, left forehead and left eyebrow herpes zoster virus infection, and schizophrenia. HOSPITAL COURSE: The patient was admitted. Neurology, ID specialist, Ophthalmology, and Psychiatric consults were requested. Finance Administrator seen and evaluated the patient and stated that the patient had herpes zoster infection without ocular involvement based on the bedside examination. He recommended to treat her with a course of antiviral medication such as acyclovir or valacyclovir and antibiotic ointment for rash to prevent bacterial infection. Neurology seen and evaluated the patient, diagnosed the patient with acute encephalopathy, and advanced dementia along with history of chronic psychiatric disorder. According to neurologist, the patient had a chronic seizure disorder exacerbation. Continuous seizure precautions were maintained. No further seizure activity while in the hospital. Depakote was resumed. The patient was observed for any paroxysmal event. Ativan was on standby p.r.n. for breakthrough seizure. The patient was on IV fluids. Infectious Disease doctor seen and evaluated the patient. The patient had facial herpes zoster without ophthalmic involvement as per limited radiology technician. The patient had a previous episode of HZV infection in June, which could be a recurrence as per Infectious Disease conclusion. The patient was started on acyclovir. ID suggested if the patient would not respond to treatment, she may need a skin biopsy to rule out malignancy. Psychiatrist seen and evaluated the patient, diagnosed the patient with schizoaffective disorder, bipolar type and optimized her psychiatric medication regimen. DVT prophylaxis provided. Pain management provided. The patient was working with Physical and Occupational Therapists. The patient with underlying history of COPD. Respiratory status was stable. Pulse oximetry was stable on room air. Pulmonary toilet was standby in case of shortness of breath, however, no need for respiratory treatment. No shortness of breath or respiratory distress noted. The patient was stable for discharge back to shelter facility. Continue acyclovir for additional four days. Continue with Depakote and other SNF medications. The patient was stable for discharge. FINAL DIAGNOSES: 1. Chronic seizure disorder exacerbation. 2. Facial herpes zoster viral infection without ocular involvement. 3. Acute encephalopathy on chronic advanced dementia. 4. Chronic obstructive pulmonary disease. 5. Schizoaffective disorder, bipolar type. DISCHARGE MEDICATIONS: See medication reconciliation list. DISCHARGE INSTRUCTIONS: The patient was discharged to shelter facility. Follow up with medical doctor at the facility. Jaziel Arana D.O. Meli BaptisteF F Thompson HospitalKy N.PRobinson DR: Baldomero JOB#: [id number] CC: DAVID
--- NOTE | 2017-08-23 16:07 | Cardiology Report ---
APPROVED REPORT EKG Measurement Heart [id number] Normal sinus rhythm Normal ECG
== END 2017-08-18 22:30 | DRG 100 ==
LOC: EDBD 13:44 → EMR 17:00 → 2E 17:22 → EDBEDREQ 20:39 → ENRESERV 21:46 → 4E 08-15 23:16
DX: G40.909 Epilepsy, unspecified, not intractable, without status epilepticus (principal); G93.40 Encephalopathy, unspecified; J44.9 Chronic obstructive pulmonary disease, unspecified; F03.90 Unspecified dementia, unspecified severity, without behavioral disturbance, psychotic disturbance, mood disturbance, and anxiety; B02.9 Zoster without complications; F32.1 Major depressive disorder, single episode, moderate; F17.200 Nicotine dependence, unspecified, uncomplicated; K21.9 Gastro-esophageal reflux disease without esophagitis; F25.0 Schizoaffective disorder, bipolar type
CPT/HCPCS: 36415; 70450; 71045; 80048; 80053; 80164; 83880; 84484; 85025; 87081; 93005; 94760; 97803; 99285

== ENCOUNTER 2018-05-09 18:34 | Inpatient (IN) | payer MEDICARE, MEDICAID ==
[~2018-05-09] VITALS: Ht 160 cm; Wt 54.1 kg
[~2018-05-09 18:34] MED LIST: ACIDOPHILUS LA1 EAC2 PO; ACYCLOVIR800 MG ORAL; DEPAKENE L250 MG/5 M ORAL; DEPAKENE250 MG/5 M PO; DIPHENHYDRAMINE25 M1 ORAL; DOCUSATE SODIU100 MG ORAL; DONEPEZIL HCL10 MG ORAL; MIRTAZAPINE7.5 MG ORAL; MULTIVITAMINS1 EAC2 ORAL; MUPIROCIN22 GM TOPIC; NAMENDA10 MG ORAL; PROMOD946 ML PO; RISPERDAL0.5 MG ORAL; SENNOSIDES8.6 MG ORAL; TUBERSOL5 TUB UNIT ID
[2018-05-09 18:43] VITALS: BP 121/59
[2018-05-09 19:16] LABS: BASOPHILS % (AUTO) 1.2 % (0.0-2.0); HEMATOCRIT 41.5 % (37.0-47.0); HEMOGLOBIN 14.8 G/DL (12.0-16.0); LYMPHOCYTES % (AUTO) 39.1 % (20.0-45.0); MEAN CORPUSCULAR VOLUME 92 FL (80-99); MONOCYTES % (AUTO) 7.7 % (1.0-10.0); PLATELET COUNT 274 K/UL (150-450); RED BLOOD COUNT 4.49 M/UL (4.20-5.40); RED CELL DISTRIBUTION WIDTH 10.8 % (11.6-14.8); WHITE BLOOD COUNT 9.4 K/UL (4.8-10.8)
[2018-05-09 19:30] LABS: ANION GAP 5 mmol/L (5-15); BLOOD UREA NITROGEN 19 mg/dL (7-18); CALCIUM 9.4 MG/DL (8.5-10.1); CARBON DIOXIDE 29 MMOL/L (21-32); CHLORIDE 105 MMOL/L (98-107); CREATININE 0.7 MG/DL (0.55-1.30); POTASSIUM 3.9 MMOL/L (3.5-5.1); SODIUM 139 MMOL/L (136-145)
[2018-05-09 19:41] LABS: ALANINE AMINOTRANSFERASE 41 U/L (12-78); ALBUMIN 3.3 G/DL (3.4-5.0); ALBUMIN/GLOBULIN RATIO 0.9 (1.0-2.7); ALKALINE PHOSPHATASE 179 U/L (46-116); ASPARTATE AMINO TRANSFERASE 25 U/L (15-37); BILIRUBIN,TOTAL 0.3 MG/DL (0.2-1.0); CREATINE KINASE 49 U/L (26-308)
[2018-05-09 20:36] LABS: APPEARANCE,URINE CLOUDY; BILIRUBIN, URINE NEGATIVE (NEGATIVE); COLOR,URINE PALE YELLOW; GLUCOSE, URINE (UA) NEGATIVE (NEGATIVE); KETONES,URINE NEGATIVE (NEGATIVE); LEUKOCYTE ESTERASE ,URINE 3+ (NEGATIVE); NITRITE,URINE POSITIVE (NEGATIVE); PH,URINE 6 (4.5-8.0); PROTEIN,URINE 2+ (NEGATIVE); UROBILINOGEN,URINE NORMAL MG/DL (0.0-1.0)
--- NOTE | 2018-05-09 21:05 | Emergency Room Report ---
History of Present Illness General Chief Complaint: Multiple Trauma/Fall Source: EMS Present Illness HPI Patient brought in for weakness and falling episodes. Barely she fell ground- level from a seat. Staff denies any head trauma. The patient has dementia and is unable to give a history at this time. Resolution of her left eyebrow however this is apparently not new. She was sent to our facility by her private doctor for reevaluation. H/O seizures on valproic acid (no seizures recently). Allergies: Coded Allergies: SHELLFISH DERIVED (Verified Allergy, Intermediate, 08/14/17) Dust (Verified Allergy, Unknown, 08/14/17) MOLD (Verified Allergy, Unknown, 08/14/17) WHEAT (Verified Allergy, Unknown, 08/14/17) Patient History Limited by: medical condition Past Medical History: see triage record, old chart reviewed Social History: Denies: smoking, alcohol use, drug use Social History Narrative long term facility Last Menstrual Period: NA Reviewed Nursing Documentation: PMH: Agreed; PSxH: Agreed Nursing Documentation-PMH Hx Cardiac Problems: No Hx COPD: Yes Hx Cancer: No Hx Gastrointestinal Problems: Yes Hx Neurological Problems: Yes - anxiety, uspecified psychosis, major depression Hx Dementia: Yes Hx Alzheimer's Disease: Yes Hx Seizures: Yes Hx Epilepsy: Yes Hx Weakness: Yes - generalized Review of Systems All Other Systems: limited Physical Exam Vital Signs Date Time Temp Pulse Resp B/P (MAP) Pulse Ox O2 Delivery O2 Flow Rate FiO2 05/09/18 18:27 98.3 81 16 121/59 96 Room Air 98.2 Sp02 EP Interpretation: reviewed, normal General Appearance: no apparent distress, alert, Chronically Ill Head: normocephalic, other - old injury L eyebrow Eyes: bilateral eye PERRL, bilateral eye abnormal EOM ENT: moist mucus membranes Neck: supple, no bony tend Respiratory: lungs clear, normal breath sounds Cardiovascular #1: regular rate, rhythm Cardiovascular #2: 2+ radial (R) Gastrointestinal: normal inspection, normal bowel sounds, non tender, no mass, non-distended Musculoskeletal: back normal, normal range of motion Neurologic: alert, DTRs symmetric, sensory intact, motor weakness - generalized weakness, not focal, other - occasionally agitated and vocalize Psychiatric: anxious - on occasion Skin: warm/dry, abrasions - L eyebrow Medical Decision Making Diagnostic Impression: Primary Impression: Dehydration Additional Impressions: UTI (urinary tract infection) Qualified Codes: N39.0 - Urinary tract infection, site not specified Non compliance w medication regimen ER Course Patient with multiple falling episodes and old trauma to L eye brow area. DDx: bleed, contusion, occult infection, electrolyte abnormality, valproic acid excess amongst others. Difficult as patient unable to give history. Obvious old trauma, need to eval with CT head, CXR, labs. Some evidence of dehydration and will give IV hydration. EKG without injury. CT head with involutional changes no bleed or mass. CXR no infiltrate. Labs with normal WBC, H/H. CMP with elevated BUN. Pyuria and + nitrites. Antibiotics begun. Patient admitted for repeat evaluations and neurologic observation - to Dr. Arana. Valproic acid level added. Laboratory Tests Test 05/09/18 18:51 05/09/18 20:00 White Blood Count 9.4 K/UL (4.8-10.8) Red Blood Count 4.49 M/UL (4.20-5.40) Hemoglobin 14.8 G/DL (12.0-16.0) Hematocrit 41.5 % (37.0-47.0) Mean Corpuscular Volume 92 FL (80-99) Mean Corpuscular Hemoglobin 32.9 PG (27.0-31.0) H Mean Corpuscular Hemoglobin Concent 35.6 G/DL (32.0-36.0) Red Cell Distribution Width 10.8 % (11.6-14.8) L Platelet Count 274 K/UL (150-450) Mean Platelet Volume 10.2 FL (6.5-10.1) H Neutrophils (%) (Auto) 51.0 % (45.0-75.0) Lymphocytes (%) (Auto) 39.1 % (20.0-45.0) Monocytes (%) (Auto) 7.7 % (1.0-10.0) Eosinophils (%) (Auto) 1.0 % (0.0-3.0) Basophils (%) (Auto) 1.2 % (0.0-2.0) Prothrombin Time 10.5 SEC (9.30-11.50) Prothrombin Time INR 1.0 (0.9-1.1) PTT 26 SEC (23-33) Sodium Level 139 MMOL/L (136-145) Potassium Level 3.9 MMOL/L (3.5-5.1) Chloride Level 105 MMOL/L (98-107) Carbon Dioxide Level 29 MMOL/L (21-32) Anion Gap 5 mmol/L (5-15) Blood Urea Nitrogen 19 mg/dL (7-18) H Creatinine 0.7 MG/DL (0.55-1.30) Estimate Glomerular Filtration Rate mL/min (>60) Glucose Level 138 MG/DL (74-106) H Calcium Level 9.4 MG/DL (8.5-10.1) Total Bilirubin 0.3 MG/DL (0.2-1.0) Aspartate Amino Transferase (AST) 25 U/L (15-37) Alanine Aminotransferase (ALT) 41 U/L (12-78) Alkaline Phosphatase 179 U/L (46-116) H Total Creatine Kinase 49 U/L (26-308) Troponin I 0.000 ng/mL (0.000-0.056) Pro-B-Type Natriuretic Peptide 134 pg/mL (0-125) H Total Protein 7.0 G/DL (6.4-8.2) Albumin 3.3 G/DL (3.4-5.0) L Globulin 3.7 g/dL Albumin/Globulin Ratio 0.9 (1.0-2.7) L Valproic Acid Level < 3 MCG/ML (50-100) L Urine Color Pale yellow Urine Appearance Cloudy Urine pH 6 (4.5-8.0) Urine Specific [place] 1.020 (1.005-1.035) Urine Protein 2+ (NEGATIVE) H Urine Glucose (UA) Negative (NEGATIVE) Urine Ketones Negative (NEGATIVE) Urine Blood 3+ (NEGATIVE) H Urine Nitrite Positive (NEGATIVE) H Urine Bilirubin Negative (NEGATIVE) Urine Urobilinogen Normal MG/DL (0.0-1.0) Urine Leukocyte Esterase 3+ (NEGATIVE) H Urine RBC 0-2 /HPF (0 - 2) Urine WBC Tntc /HPF (0 - 2) H Urine Squamous Epithelial Cells Many /LPF (NONE/OCC) H Urine Bacteria Many /HPF (NONE) H Urine Opiates Screen Negative (NEGATIVE) Urine Barbiturates Screen Negative (NEGATIVE) Phencyclidine (PCP) Screen Negative (NEGATIVE) Urine Amphetamines Screen Negative (NEGATIVE) Urine Benzodiazepines Screen Negative (NEGATIVE) Urine Cocaine Screen Negative (NEGATIVE) Urine Marijuana (THC) Screen Negative (NEGATIVE) EKG Diagnostic Results Rate: normal Rhythm: NSR ST Segments: no acute changes Rhythm Strip Diag. Results EP Interpretation: yes Rhythm: NSR, no PVC's, other - pacs Chest X-Ray Diagnostic Results Chest X-Ray Diagnostic Results : Chest X-Ray Ordered: Yes # of Views/Limited/Complete: 1 View Indication: Other EP Interpretation: Yes Interpretation: no consolidation, no effusion, no pneumothorax Impression: No acute disease Electronically Signed by: Eduardo Hendricks MD CT/MRI/US Diagnostic Results CT/MRI/US Diagnostic Results : Imaging Test Ordered: head Impression involutional changes Last Vital Signs Date Time Temp Pulse Resp B/P (MAP) Pulse Ox O2 Delivery O2 Flow Rate FiO2 05/09/18 23:12 Room Air 05/09/18 22:50 97.0 82 18 139/54 91 Status: improved Disposition: ADMITTED INPATIENT Condition: Serious Referrals: Jaziel Arana DO (PCP) Eduardo Hendricks M.D. May 09, 2018 21:05
[2018-05-09] MEDS ORDERED: cefTRIAXone 1 GM in NS 55 ML IVPB ONE (21:15)
[2018-05-09] MEDS ORDERED: Miralax 17gm pkt ORAL PRN (22:15)
[2018-05-09] MEDS ORDERED: Morphine Sulfate 2mg/ml Inj IVP PRN (22:15)
[2018-05-09] MEDS ORDERED: Albuterol/Ipratropium 3ml neb HHN PRN (22:15)
[2018-05-09 22:35] VITALS: BP 154/88
[2018-05-10] VITALS: BP 116/66
[2018-05-10] MEDS ORDERED: DICLOFENAC SOD100 GM TP (00:10)
[2018-05-10] MEDS ORDERED: ASCORBIC ACID500 MG ORAL (00:10)
[2018-05-10] MEDS ORDERED: VOLTAREN100 G1 TP (00:10)
[2018-05-10] MEDS ORDERED: VITAMIN B-1100 MG ORAL (00:10)
[2018-05-10] MEDS: Vancomycin 1 GM in D5W 275 ML IVPB SCH (00:58)
[2018-05-10] MEDS: Heparin 5000 units/ml inj SUBQ SCH ×3 (00:59→21:22)
[2018-05-10 04:00] VITALS: BP 131/63
[2018-05-10] MEDS: Valproic Acid 250mg/5ml Liquid ORAL SCH ×2 (05:59→17:16)
--- NOTE | 2018-05-10 07:36 | Consultation ---
History of Present Illness General Date patient seen: May 10, 2018 Time patient seen: 06:50 Chief Complaint: Multiple Trauma/Fall Referring physician: dr Arana Reason for Consultation: in hospital management Present Illness HPI 73 y/old female with PMH of COPD. Alzheimer dementia. seizure disorder, noncompliance, was brought in for evaluation due to generalized weakness and falling episodes. She fell ground-level from a seat. Staff denied any head trauma. The patient with dementia and was unable to provide any history. Patient had old trauma to L eyebrow area. Upon evaluation VS were stable. Laboratory work revealed no lecukotysosi, stabel HH UA positive for UTI. CXR no acute cardiopulmonary pathology troponin negative, ECG SR, no acute ischemic changes CT head no acute IC pathology tox screen negative BUN 19 Albumin 3.3 Patient was admitted for further amangeemtn Allergies: Coded Allergies: SHELLFISH DERIVED (Verified Allergy, Intermediate, 08/14/17) Dust (Verified Allergy, Unknown, 08/14/17) MOLD (Verified Allergy, Unknown, 08/14/17) WHEAT (Verified Allergy, Unknown, 08/14/17) Medication History Scheduled Ascorbic Acid* (Ascorbic Acid*), 500 MG ORAL DAILY, (Reported) Docusate Sodium* (Docusate Sodium*), 200 MG ORAL BEDTIME, (Reported) Donepezil Hcl* (Donepezil Hcl*), 10 MG ORAL BEDTIME, (Reported) Memantine Hcl* (Namenda*), 10 MG ORAL BID, (Reported) Mirtazapine* (Mirtazapine*), 7.5 MG ORAL BEDTIME, (Reported) Multivitamins* (Multivitamins*), 1 TAB ORAL DAILY, (Reported) Protein Supplement (Promod), 30 ML PO DAILY, (Reported) Risperidone* (Risperdal*), 0.5 MG ORAL DAILY, (Reported) Sennosides* (Sennosides*), 8.6 MG ORAL DAILY, (Reported) Thiamine Hcl* (Vitamin B-1*), 100 MG ORAL DAILY, (Reported) Valproic Acid (Valproic Acid), 750 MG ORAL Q12HR@0600,1800 Scheduled PRN Diphenhydramine Hcl* (Diphenhydramine Hcl*), 50 MG ORAL Q6H PRN for Itching, ( Reported) Miscellaneous Medications Diclofenac Sodium (Diclofenac Sodium), 100 GM TP, (Reported) Diclofenac Sodium (Voltaren), 100 GM TP, (Reported) Tuberculin,Purif.prot.deriv. (Tubersol), 5 TUB ID, (Reported) Discontinued Medications Acyclovir* (Zovirax*), 800 MG ORAL EVERY 6 HOURS Discontinued Reason: Therapy completed Lactobacillus Acidophilus (Acidophilus Lactobacilli), 1 EACH PO, (Reported) Discontinued Reason: Therapy completed Mupirocin* (Mupirocin*), 2 % TOPIC BID, (Reported) Discontinued Reason: Therapy completed Valproate Sodium (Depakene), 500 MG PO BID, (Reported) Discontinued Reason: Therapy completed Patient History History Provided By: Medical Record Healthcare decision maker Resuscitation status Full Code Advanced Directive on File Past Medical/Surgical History Past Medical/Surgical History: (1) Non compliance w medication regimen (2) Depression (3) Uncontrolled seizures Review of Systems ROS Narrative unable to obtain 2 to dementia Physical Exam General Appearance: no apparent distress, alert, confused Lines, tubes and drains: peripheral HEENT: normocephalic, atraumatic, anicteric, mucous membranes moist, other - L eyebrow old scab Neck: supple Respiratory/Chest: lungs clear, no respiratory distress, no accessory muscle use Cardiovascular/Chest: normal rate, no JVD Abdomen: normal bowel sounds, non tender, soft Skin Exam: warm/dry, no diaphoresis Neurologic: abnormal gait, other - severely confused Musculoskeletal: atrophy - BLE Last 24 Hour Vital Signs Date Time Temp Pulse Resp B/P (MAP) Pulse Ox O2 Delivery O2 Flow Rate FiO2 05/10/18 04:00 96.8 79 18 131/63 (85) 98 96.8 05/10/18 00:00 96.6 69 18 116/66 (83) 98 96.6 05/09/18 23:12 Room Air 05/09/18 22:50 97.0 82 18 139/54 91 Room Air 05/09/18 22:35 97.7 95 19 154/88 (110) 99 97.7 05/09/18 18:43 98.2 81 16 121/59 96 Room Air 98.2 05/09/18 18:27 98.3 81 16 121/59 96 Room Air 98.2 Intake and Output 05/09/18 05/10/18 19:00 07:00 Intake Total 275.0 ml Balance 275.0 ml Intake IV Total 275.0 ml # Voids 6 Laboratory Tests Test 05/09/18 18:51 05/09/18 20:00 White Blood Count 9.4 K/UL (4.8-10.8) Red Blood Count 4.49 M/UL (4.20-5.40) Hemoglobin 14.8 G/DL (12.0-16.0) Hematocrit 41.5 % (37.0-47.0) Mean Corpuscular Volume 92 FL (80-99) Mean Corpuscular Hemoglobin 32.9 PG (27.0-31.0) H Mean Corpuscular Hemoglobin Concent 35.6 G/DL (32.0-36.0) Red Cell Distribution Width 10.8 % (11.6-14.8) L Platelet Count 274 K/UL (150-450) Mean Platelet Volume 10.2 FL (6.5-10.1) H Neutrophils (%) (Auto) 51.0 % (45.0-75.0) Lymphocytes (%) (Auto) 39.1 % (20.0-45.0) Monocytes (%) (Auto) 7.7 % (1.0-10.0) Eosinophils (%) (Auto) 1.0 % (0.0-3.0) Basophils (%) (Auto) 1.2 % (0.0-2.0) Prothrombin Time 10.5 SEC (9.30-11.50) Prothromb Time International Ratio 1.0 (0.9-1.1) Activated Partial Thromboplast Time 26 SEC (23-33) Sodium Level 139 MMOL/L (136-145) Potassium Level 3.9 MMOL/L (3.5-5.1) Chloride Level 105 MMOL/L (98-107) Carbon Dioxide Level 29 MMOL/L (21-32) Anion Gap 5 mmol/L (5-15) Blood Urea Nitrogen 19 mg/dL (7-18) H Creatinine 0.7 MG/DL (0.55-1.30) Estimat Glomerular Filtration Rate mL/min (>60) Glucose Level 138 MG/DL (74-106) H Calcium Level 9.4 MG/DL (8.5-10.1) Total Bilirubin 0.3 MG/DL (0.2-1.0) Aspartate Amino Transf (AST/SGOT) 25 U/L (15-37) Alanine Aminotransferase (ALT/SGPT) 41 U/L (12-78) Alkaline Phosphatase 179 U/L (46-116) H Total Creatine Kinase 49 U/L (26-308) Troponin I 0.000 ng/mL (0.000-0.056) Pro-B-Type Natriuretic Peptide 134 pg/mL (0-125) H Total Protein 7.0 G/DL (6.4-8.2) Albumin 3.3 G/DL (3.4-5.0) L Globulin 3.7 g/dL Albumin/Globulin Ratio 0.9 (1.0-2.7) L Valproic Acid (Depakene) Level < 3 MCG/ML (50-100) L Urine Color Pale yellow Urine Appearance Cloudy Urine pH 6 (4.5-8.0) Urine Specific [place] 1.020 (1.005-1.035) Urine Protein 2+ (NEGATIVE) H Urine Glucose (UA) Negative (NEGATIVE) Urine Ketones Negative (NEGATIVE) Urine Blood 3+ (NEGATIVE) H Urine Nitrite Positive (NEGATIVE) H Urine Bilirubin Negative (NEGATIVE) Urine Urobilinogen Normal MG/DL (0.0-1.0) Urine Leukocyte Esterase 3+ (NEGATIVE) H Urine RBC 0-2 /HPF (0 - 2) Urine WBC Tntc /HPF (0 - 2) H Urine Squamous Epithelial Cells Many /LPF (NONE/OCC) H Urine Bacteria Many /HPF (NONE) H Urine Opiates Screen Negative (NEGATIVE) Urine Barbiturates Screen Negative (NEGATIVE) Phencyclidine (PCP) Screen Negative (NEGATIVE) Urine Amphetamines Screen Negative (NEGATIVE) Urine Benzodiazepines Screen Negative (NEGATIVE) Urine Cocaine Screen Negative (NEGATIVE) Urine Marijuana (THC) Screen Negative (NEGATIVE) Height (Feet): 5 Height (Inches): 3.00 Weight (Pounds): 114 Medications Current Medications Medications (Trade) Dose Ordered Sig/[place] Route PRN Reason Start Time Stop Time Status Last Admin Dose Admin Acetaminophen (Tylenol) 650 mg Q4H PRN ORAL fever 05/09/18 22:15 06/08/18 22:14 Albuterol/ Ipratropium (Albuterol/ Ipratropium) 3 ml EVERY 4 HOURS PRN HHN Shortness of Breath 05/09/18 22:15 05/14/18 22:14 Cefepime HCl 2 gm/ Dextrose 110 ml @ 220 mls/hr Q24H IV 05/10/18 09:00 05/17/18 08:59 Donepezil HCl (Aricept) 10 mg BEDTIME ORAL 05/10/18 21:00 06/09/18 20:59 Heparin Sodium (Porcine) (Heparin 5000 units/ml) 5,000 units EVERY 12 HOURS SUBQ 05/09/18 23:15 06/08/18 23:14 05/10/18 00:59 Memantine (Namenda) 10 mg BID ORAL 05/10/18 09:00 06/09/18 08:59 Mirtazapine (Remeron) 7.5 mg BEDTIME ORAL 05/10/18 21:00 06/09/18 20:59 Morphine Sulfate (Morphine Sulfate) 2 mg EVERY 4 HOURS PRN IVP Moderate Pain (Pain Scale 4-6) 05/09/18 22:15 05/16/18 22:14 Ondansetron HCl (Zofran) 4 mg Q6H PRN IVP Nausea & Vomiting 05/09/18 22:15 06/08/18 22:14 Phenazopyridine HCl (Pyridium) 100 mg DAILY PRN ORAL dysuria 05/09/18 22:15 06/08/18 22:14 Polyethylene Glycol (Miralax) 17 gm DAILYPRN PRN ORAL Constipation 05/09/18 22:15 06/08/18 22:14 Risperidone (RisperDAL) 0.25 mg Q6H PRN ORAL Agitation 05/09/18 22:15 06/08/18 22:14 Sennosides (Senokot) 1 tab DAILY ORAL 05/10/18 09:00 06/09/18 08:59 Temazepam (Restoril) 15 mg HSPRN PRN ORAL Insomnia 05/09/18 22:15 05/16/18 22:14 Valproic Acid (Depakene) 750 mg Q12HR@0600,1800 ORAL 05/10/18 06:00 06/09/18 05:59 05/10/18 05:59 Vancomycin HCl 1 gm/Dextrose 275 ml @ 183.3 mls/ hr Q24H IVPB 05/10/18 00:30 05/15/18 00:29 05/10/18 00:58 Assessment/Plan Assessment/Plan ASSESSMENT dehydration UTI protein calorie malnutrition noncompliance acute on chronic encephalopathy ( probably duet to dehydration and infection process COPD seizure disorder PLAN OF CARE MS floor IVF empiric abx, fup with cx ID consult Pyridium for comfort monitor renal parameters, lytes, correct lytes as needed, avoid nephrotoxic O2 HHN prn seizure precautions, continue Depakote, dietary eval re supplement to improve nutritional status DVT prophylaxis bowel regimen pain management prn supportive care case discussed and evaluated by supervising physician Meli North NP May 10, 2018 07:36
[2018-05-10 08:20] VITALS: BP 121/63
[2018-05-10 08:23] LABS: BASOPHILS % (AUTO) 0.8 % (0.0-2.0); EOSINOPHILS % (AUTO) 0.6 % (0.0-3.0); HEMATOCRIT 41.4 % (37.0-47.0); HEMOGLOBIN 14.5 G/DL (12.0-16.0); LYMPHOCYTES % (AUTO) 36.4 % (20.0-45.0); MEAN CORPUSCULAR VOLUME 90 FL (80-99); MONOCYTES % (AUTO) 6.5 % (1.0-10.0); NEUTROPHILS % (AUTO) 55.7 % (45.0-75.0); PLATELET COUNT 252 K/UL (150-450); RED BLOOD COUNT 4.62 M/UL (4.20-5.40); RED CELL DISTRIBUTION WIDTH 10.5 % (11.6-14.8); WHITE BLOOD COUNT 9.2 K/UL (4.8-10.8)
[2018-05-10 08:45] LABS: ALANINE AMINOTRANSFERASE 37 U/L (12-78); ALBUMIN 3.2 G/DL (3.4-5.0); ALBUMIN/GLOBULIN RATIO 0.9 (1.0-2.7); ALKALINE PHOSPHATASE 174 U/L (46-116); ANION GAP 10 mmol/L (5-15); ASPARTATE AMINO TRANSFERASE 24 U/L (15-37); BILIRUBIN,TOTAL 0.4 MG/DL (0.2-1.0); BLOOD UREA NITROGEN 12 mg/dL (7-18); CALCIUM 9.4 MG/DL (8.5-10.1); CARBON DIOXIDE 25 MMOL/L (21-32); CHLORIDE 108 MMOL/L (98-107); CREATININE 0.6 MG/DL (0.55-1.30); POTASSIUM 3.7 MMOL/L (3.5-5.1); SODIUM 143 MMOL/L (136-145)
[2018-05-10] MEDS: Sennosides 8.6mg ORAL SCH (09:11)
[2018-05-10] MEDS: Memantine 10mg tab ORAL SCH ×2 (09:11→17:16)
[2018-05-10] MEDS: Cefepime HCl 2 GM in D5W 110 ML IV SCH (09:11)
--- NOTE | 2018-05-10 10:00 | History and Physical Report ---
DATE OF ADMISSION: 05/09/2018 TIME: 8 a.m. CONSULTANTS: 1. Jesu Wilkes M.D. 2. Everett Polanco M.D. 3. Meghann Dailey M.D. CHIEF COMPLAINT: Weakness, UTI, sepsis, and confusion. BRIEF HISTORY: This is a 73-year-old female from [facility], presents to [facility] yesterday with a history of increased confusion, weakness, was diagnosed with weakness, UTI, sepsis. Admitted to medical floor for further treatment. Currently, lethargic in bed, confused, not talking much. PAST MEDICAL HISTORY: Include seizure, dehydration, and depression. PAST SURGICAL HISTORY: Unknown. MEDICATIONS: Include Aricept, Remeron, Namenda, Senokot, cefepime, valproic, vancomycin, heparin, albuterol, Tylenol, morphine, Zofran, and temazepam. ALLERGIES: None known. SOCIAL HISTORY: Unable to obtain secondary to the patient's confusion. REVIEW OF SYSTEMS: Unavailable. PHYSICAL EXAMINATION: GENERAL: Lethargic in bed, refusing to answer questions. VITAL SIGNS: Temperature 98, pulse 58, respirations 18, and blood pressure 121/63. CARDIOVASCULAR: No murmur. LUNGS: Distant and clear. ABDOMEN: Bowel sounds positive. Nontender. Nondistended. EXTREMITIES: No cyanosis or edema. NEUROLOGIC: The patient moves all extremities, slightly weak. LABORATORY AND DIAGNOSTIC DATA: Labs, at this time, show CBC is normal. BMP show BUN 19, glucose 138, alkaline phosphatase 179. Troponin 0.00. Albumin 3.3. Urinalysis shows 3+ leukocyte esterase. ASSESSMENT: 1. Weakness. 2. UTI. 3. Sepsis. 4. Confusion. 5. Seizure. 6. Dehydration. 7. Depression. 8. Malnutrition. PLAN: 1. OT, PT, and dietary followup. 2. Seizure control. 3. Antibiotics per Infectious Disease. 4. Resume home medications. 5. CBC and BMP in the morning. Jaziel Arana D.O. DR: GONZALEZ JOB#: [id number] CC:
[2018-05-10 11:49] VITALS: BP 125/69
[2018-05-10] MEDS ORDERED: Flu Vaccine Quadrivalent 0.5ml IM ONE (12:00)
[2018-05-10 16:16] VITALS: BP 118/81
[2018-05-10] MEDS: Donepezil 10mg tab ORAL SCH (21:22)
[2018-05-11] MEDS: Vancomycin 1 GM in D5W 275 ML IVPB SCH (00:16)
[2018-05-11] MEDS: Valproic Acid 250mg/5ml Liquid ORAL SCH ×2 (05:32→17:25)
[2018-05-11 06:35] LABS: ANION GAP 17 mmol/L (5-15); BLOOD UREA NITROGEN 13 mg/dL (7-18); CALCIUM 9.6 MG/DL (8.5-10.1); CARBON DIOXIDE 21 MMOL/L (21-32); CHLORIDE 108 MMOL/L (98-107); CREATININE 0.7 MG/DL (0.55-1.30); POTASSIUM 3.6 MMOL/L (3.5-5.1); SODIUM 146 MMOL/L (136-145)
[2018-05-11 06:57] LABS: BASOPHILS % (AUTO) 0.9 % (0.0-2.0); EOSINOPHILS % (AUTO) 0.9 % (0.0-3.0); HEMATOCRIT 43.8 % (37.0-47.0); HEMOGLOBIN 15.5 G/DL (12.0-16.0); LYMPHOCYTES % (AUTO) 39.4 % (20.0-45.0); MEAN CORPUSCULAR VOLUME 90 FL (80-99); MONOCYTES % (AUTO) 7.2 % (1.0-10.0); NEUTROPHILS % (AUTO) 51.5 % (45.0-75.0); PLATELET COUNT 268 K/UL (150-450); RED BLOOD COUNT 4.85 M/UL (4.20-5.40); WHITE BLOOD COUNT 15.3 K/UL (4.8-10.8)
[2018-05-11 08:00] VITALS: BP 121/72
[2018-05-11] MEDS: Memantine 10mg tab ORAL SCH ×2 (09:01→17:25)
[2018-05-11] MEDS: Sennosides 8.6mg ORAL SCH (09:01)
[2018-05-11] MEDS: Cefepime HCl 2 GM in D5W 110 ML IV SCH (09:01)
[2018-05-11] MEDS: Heparin 5000 units/ml inj SUBQ SCH ×2 (09:03→20:42)
--- NOTE | 2018-05-11 11:16 | General Progress Note ---
Assessment/Plan Problem List: (1) Sepsis ICD Codes: A41.9 - Sepsis, unspecified organism SNOMED: 94287144 (2) Malnutrition ICD Codes: E46 - Unspecified protein-calorie malnutrition SNOMED: 53615167 (3) Weak ICD Codes: R53.1 - Weakness SNOMED: 44448896 (4) UTI (urinary tract infection) ICD Codes: N39.0 - Urinary tract infection, site not specified SNOMED: 96005949 Qualifiers: Qualified Codes: N39.0 - Urinary tract infection, site not specified (5) Uncontrolled seizures ICD Codes: R56.9 - Unspecified convulsions SNOMED: 59939700 (6) Depression ICD Codes: F32.9 - Major depressive disorder, single episode, unspecified SNOMED: 89243280 (7) Dehydration ICD Codes: E86.0 - Dehydration SNOMED: 77310622 Status: unchanged Assessment/Plan ot pt diet abx cbc bmp am Subjective Constitutional: Reports: weakness Allergies: Coded Allergies: SHELLFISH DERIVED (Verified Allergy, Intermediate, 08/14/17) Dust (Verified Allergy, Unknown, 08/14/17) MOLD (Verified Allergy, Unknown, 08/14/17) WHEAT (Verified Allergy, Unknown, 08/14/17) All Systems: reviewed and negative except above Subjective sleepy calm Objective Last 24 Hour Vital Signs Date Time Temp Pulse Resp B/P (MAP) Pulse Ox O2 Delivery O2 Flow Rate FiO2 05/11/18 08:00 98.1 72 18 121/72 (88) 98 98.1 05/10/18 21:00 Room Air 05/10/18 20:24 65 18 Room Air 05/10/18 16:16 98.4 61 18 118/81 (93) 98 98.4 05/10/18 11:49 97.6 71 18 125/69 (87) 98 97.6 Intake and Output 05/10/18 05/11/18 19:00 07:00 Intake Total 640 ml 375.0 ml Balance 640 ml 375.0 ml Intake Oral 240 ml IV Total 375.0 ml Other 400 ml # Voids 3 3 # Bowel Movements 1 Laboratory Tests 05/11/18 05:35: White Blood Count 15.3#H, Red Blood Count 4.85, Hemoglobin 15.5, Hematocrit 43.8 , Mean Corpuscular Volume 90, Mean Corpuscular Hemoglobin 32.0H, Mean Corpuscular Hemoglobin Concent 35.4, Red Cell Distribution Width 11.0L, Platelet Count 268, Mean Platelet Volume 9.9, Neutrophils (%) (Auto) 51.5, Lymphocytes (%) (Auto) 39.4, Monocytes (%) (Auto) 7.2, Eosinophils (%) (Auto) 0.9, Basophils (%) (Auto) 0.9, Sodium Level 146H, Potassium Level 3.6, Chloride Level 108H, Carbon Dioxide Level 21, Anion Gap 17H, Blood Urea Nitrogen 13, Creatinine 0.7, Estimat Glomerular Filtration Rate , Glucose Level 83, Calcium Level 9.6 Height (Feet): 5 Height (Inches): 3.00 Weight (Pounds): 114 General Appearance: lethargic EENT: normal ENT inspection Neck: normal alignment Cardiovascular: normal peripheral pulses, normal rate, regular rhythm Respiratory/Chest: chest wall non-tender, lungs clear, normal breath sounds Abdomen: normal bowel sounds, non tender, soft Extremities: normal inspection Edema: no edema noted Arm (L), no edema noted Arm (R), no edema noted Leg (L), no edema noted Leg (R), no edema noted Pedal (L), no edema noted Pedal (R), no edema noted Generalized Neurologic: motor weakness Skin: normal pigmentation, warm/dry Jaziel Arana DO May 11, 2018 11:16
--- NOTE | 2018-05-11 13:04 | Pulmonology Progress Note ---
Assessment/Plan Problems: (1) Sepsis (2) UTI (urinary tract infection) (3) Malnutrition (4) Depression Assessment/Plan iv abx iv fluids check cultures check electrolytes respiratory treatment prn titrate fio2 to sat of 92% dvt prophylaxis Subjective ROS Limited/Unobtainable: No Constitutional: Reports: no symptoms HEENT: Repors: no symptoms Respiratory: Reports: no symptoms Allergies: Coded Allergies: SHELLFISH DERIVED (Verified Allergy, Intermediate, 08/14/17) Dust (Verified Allergy, Unknown, 08/14/17) MOLD (Verified Allergy, Unknown, 08/14/17) WHEAT (Verified Allergy, Unknown, 08/14/17) Objective Last 24 Hour Vital Signs Date Time Temp Pulse Resp B/P (MAP) Pulse Ox O2 Delivery O2 Flow Rate FiO2 05/11/18 11:24 97 20 Room Air 21 05/11/18 09:00 Room Air 05/11/18 08:00 98.1 72 18 121/72 (88) 98 98.1 05/10/18 21:00 Room Air 05/10/18 20:24 65 18 Room Air 05/10/18 16:16 98.4 61 18 118/81 (93) 98 98.4 Intake and Output 05/10/18 05/11/18 19:00 07:00 Intake Total 640 ml 375.0 ml Balance 640 ml 375.0 ml Intake Oral 240 ml IV Total 375.0 ml Other 400 ml # Voids 3 3 # Bowel Movements 1 General Appearance: cachetic HEENT: normocephalic, atraumatic Respiratory/Chest: chest wall non-tender, lungs clear Breasts: no masses Cardiovascular: normal peripheral pulses, normal rate Genitourinary: normal external genitalia Extremities: no clubbing 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 Lymphatic: no neck adenopathy Microbiology Date/Time Source Procedure Growth Status 05/09/18 20:00 Urine,Clean Catch Urine Culture - Final Escherichia Coli Complete Laboratory Tests 05/11/18 05:35: White Blood Count 15.3#H, Red Blood Count 4.85, Hemoglobin 15.5, Hematocrit 43.8 , Mean Corpuscular Volume 90, Mean Corpuscular Hemoglobin 32.0H, Mean Corpuscular Hemoglobin Concent 35.4, Red Cell Distribution Width 11.0L, Platelet Count 268, Mean Platelet Volume 9.9, Neutrophils (%) (Auto) 51.5, Lymphocytes (%) (Auto) 39.4, Monocytes (%) (Auto) 7.2, Eosinophils (%) (Auto) 0.9, Basophils (%) (Auto) 0.9, Sodium Level 146H, Potassium Level 3.6, Chloride Level 108H, Carbon Dioxide Level 21, Anion Gap 17H, Blood Urea Nitrogen 13, Creatinine 0.7, Estimat Glomerular Filtration Rate , Glucose Level 83, Calcium Level 9.6 Current Medications Medications (Trade) Dose Ordered Sig/Chadwick Route PRN Reason Start Time Stop Time Status Last Admin Dose Admin Acetaminophen (Tylenol) 650 mg Q4H PRN ORAL fever 05/09/18 22:15 06/08/18 22:14 Albuterol/ Ipratropium (Albuterol/ Ipratropium) 3 ml EVERY 4 HOURS PRN HHN Shortness of Breath 05/09/18 22:15 05/14/18 22:14 Cefepime HCl 2 gm/ Dextrose 110 ml @ 220 mls/hr Q24H IV 05/10/18 09:00 05/17/18 08:59 05/11/18 09:01 Donepezil HCl (Aricept) 10 mg BEDTIME ORAL 05/10/18 21:00 06/09/18 20:59 05/10/18 21:22 Heparin Sodium (Porcine) (Heparin 5000 units/ml) 5,000 units EVERY 12 HOURS SUBQ 05/09/18 23:15 06/08/18 23:14 05/11/18 09:03 Memantine (Namenda) 10 mg BID ORAL 05/10/18 09:00 06/09/18 08:59 05/11/18 09:01 Mirtazapine (Remeron) 7.5 mg BEDTIME ORAL 05/10/18 21:00 06/09/18 20:59 05/10/18 21:22 Morphine Sulfate (Morphine Sulfate) 2 mg EVERY 4 HOURS PRN IVP Moderate Pain (Pain Scale 4-6) 05/09/18 22:15 05/16/18 22:14 Ondansetron HCl (Zofran) 4 mg Q6H PRN IVP Nausea & Vomiting 05/09/18 22:15 06/08/18 22:14 Phenazopyridine HCl (Pyridium) 100 mg DAILY PRN ORAL dysuria 05/09/18 22:15 06/08/18 22:14 Polyethylene Glycol (Miralax) 17 gm DAILYPRN PRN ORAL Constipation 05/09/18 22:15 06/08/18 22:14 Risperidone (RisperDAL) 0.25 mg Q6H PRN ORAL Agitation 05/09/18 22:15 06/08/18 22:14 Sennosides (Senokot) 1 tab DAILY ORAL 05/10/18 09:00 06/09/18 08:59 05/11/18 09:01 Sodium Chloride 1,000 ml @ 50 mls/hr Q20H IV 05/10/18 07:45 06/09/18 07:44 05/11/18 03:57 Temazepam (Restoril) 15 mg HSPRN PRN ORAL Insomnia 05/09/18 22:15 05/16/18 22:14 Valproic Acid (Depakene) 750 mg Q12HR@0600,1800 ORAL 05/10/18 06:00 06/09/18 05:59 05/11/18 05:32 Vancomycin HCl 1 gm/Dextrose 275 ml @ 183.3 mls/ hr Q24H IVPB 05/10/18 00:30 05/15/18 00:29 05/11/18 00:16 Jesu Wilkes MD May 11, 2018 13:04
--- NOTE | 2018-05-11 13:38 | Consultation ---
History of Present Illness General Date patient seen: May 11, 2018 Chief Complaint: Multiple Trauma/Fall Referring physician: dr Arana Reason for Consultation: in hospital management Present Illness HPI 73 y/o F with hx of COPD, Alzheimer Dementia, MDD, seizure disorder, SNF resident presents to ED on 05/09 with generalized weakness, falling episodes, increased confusion. ID consulted for concern for UTI. Allergies: Coded Allergies: SHELLFISH DERIVED (Verified Allergy, Intermediate, 08/14/17) Dust (Verified Allergy, Unknown, 08/14/17) MOLD (Verified Allergy, Unknown, 08/14/17) WHEAT (Verified Allergy, Unknown, 08/14/17) Medication History Scheduled Ascorbic Acid* (Ascorbic Acid*), 500 MG ORAL DAILY, (Reported) Docusate Sodium* (Docusate Sodium*), 200 MG ORAL BEDTIME, (Reported) Donepezil Hcl* (Donepezil Hcl*), 10 MG ORAL BEDTIME, (Reported) Memantine Hcl* (Namenda*), 10 MG ORAL BID, (Reported) Mirtazapine* (Mirtazapine*), 7.5 MG ORAL BEDTIME, (Reported) Multivitamins* (Multivitamins*), 1 TAB ORAL DAILY, (Reported) Protein Supplement (Promod), 30 ML PO DAILY, (Reported) Risperidone* (Risperdal*), 0.5 MG ORAL DAILY, (Reported) Sennosides* (Sennosides*), 8.6 MG ORAL DAILY, (Reported) Thiamine Hcl* (Vitamin B-1*), 100 MG ORAL DAILY, (Reported) Valproic Acid (Valproic Acid), 750 MG ORAL Q12HR@0600,1800 Scheduled PRN Diphenhydramine Hcl* (Diphenhydramine Hcl*), 50 MG ORAL Q6H PRN for Itching, ( Reported) Miscellaneous Medications Diclofenac Sodium (Diclofenac Sodium), 100 GM TP, (Reported) Diclofenac Sodium (Voltaren), 100 GM TP, (Reported) Tuberculin,Purif.prot.deriv. (Tubersol), 5 TUB ID, (Reported) Discontinued Medications Acyclovir* (Zovirax*), 800 MG ORAL EVERY 6 HOURS Discontinued Reason: Therapy completed Lactobacillus Acidophilus (Acidophilus Lactobacilli), 1 EACH PO, (Reported) Discontinued Reason: Therapy completed Mupirocin* (Mupirocin*), 2 % TOPIC BID, (Reported) Discontinued Reason: Therapy completed Valproate Sodium (Depakene), 500 MG PO BID, (Reported) Discontinued Reason: Therapy completed Patient History Healthcare decision maker Resuscitation status Full Code Advanced Directive on File Patient History Narrative Pmhx: as above Shx: Lives in long-term facility Fhx: non contributory Review of Systems ROS Narrative unable to obtain Physical Exam Physical Exam Narrative GENERAL: Lethargic in bed, refusing to answer questions. CARDIOVASCULAR: No murmur. LUNGS: Distant and clear. ABDOMEN: Bowel sounds positive. Nontender. Nondistended. EXTREMITIES: No cyanosis or edema. NEUROLOGIC: The patient moves all extremities, slightly weak. Last 24 Hour Vital Signs Date Time Temp Pulse Resp B/P (MAP) Pulse Ox O2 Delivery O2 Flow Rate FiO2 05/11/18 11:24 97 20 Room Air 21 05/11/18 09:00 Room Air 05/11/18 08:00 98.1 72 18 121/72 (88) 98 98.1 05/10/18 21:00 Room Air 05/10/18 20:24 65 18 Room Air 05/10/18 16:16 98.4 61 18 118/81 (93) 98 98.4 Intake and Output 05/10/18 05/11/18 19:00 07:00 Intake Total 640 ml 375.0 ml Balance 640 ml 375.0 ml Intake Oral 240 ml IV Total 375.0 ml Other 400 ml # Voids 3 3 # Bowel Movements 1 Laboratory Tests Test 05/11/18 05:35 White Blood Count 15.3 K/UL (4.8-10.8) #H Red Blood Count 4.85 M/UL (4.20-5.40) Hemoglobin 15.5 G/DL (12.0-16.0) Hematocrit 43.8 % (37.0-47.0) Mean Corpuscular Volume 90 FL (80-99) Mean Corpuscular Hemoglobin 32.0 PG (27.0-31.0) H Mean Corpuscular Hemoglobin Concent 35.4 G/DL (32.0-36.0) Red Cell Distribution Width 11.0 % (11.6-14.8) L Platelet Count 268 K/UL (150-450) Mean Platelet Volume 9.9 FL (6.5-10.1) Neutrophils (%) (Auto) 51.5 % (45.0-75.0) Lymphocytes (%) (Auto) 39.4 % (20.0-45.0) Monocytes (%) (Auto) 7.2 % (1.0-10.0) Eosinophils (%) (Auto) 0.9 % (0.0-3.0) Basophils (%) (Auto) 0.9 % (0.0-2.0) Sodium Level 146 MMOL/L (136-145) H Potassium Level 3.6 MMOL/L (3.5-5.1) Chloride Level 108 MMOL/L (98-107) H Carbon Dioxide Level 21 MMOL/L (21-32) Anion Gap 17 mmol/L (5-15) H Blood Urea Nitrogen 13 mg/dL (7-18) Creatinine 0.7 MG/DL (0.55-1.30) Estimat Glomerular Filtration Rate mL/min (>60) Glucose Level 83 MG/DL (74-106) Calcium Level 9.6 MG/DL (8.5-10.1) Height (Feet): 5 Height (Inches): 3.00 Weight (Pounds): 114 Medications Current Medications Medications (Trade) Dose Ordered Sig/Chadwick Route PRN Reason Start Time Stop Time Status Last Admin Dose Admin Acetaminophen (Tylenol) 650 mg Q4H PRN ORAL fever 05/09/18 22:15 06/08/18 22:14 Albuterol/ Ipratropium (Albuterol/ Ipratropium) 3 ml EVERY 4 HOURS PRN HHN Shortness of Breath 05/09/18 22:15 05/14/18 22:14 Ceftriaxone Sodium 1 gm/ Dextrose 55 ml @ 110 mls/hr Q24H IVPB 05/11/18 18:00 05/18/18 17:59 Donepezil HCl (Aricept) 10 mg BEDTIME ORAL 05/10/18 21:00 06/09/18 20:59 05/10/18 21:22 Heparin Sodium (Porcine) (Heparin 5000 units/ml) 5,000 units EVERY 12 HOURS SUBQ 05/09/18 23:15 06/08/18 23:14 05/11/18 09:03 Memantine (Namenda) 10 mg BID ORAL 05/10/18 09:00 06/09/18 08:59 05/11/18 09:01 Mirtazapine (Remeron) 7.5 mg BEDTIME ORAL 05/10/18 21:00 06/09/18 20:59 05/10/18 21:22 Morphine Sulfate (Morphine Sulfate) 2 mg EVERY 4 HOURS PRN IVP Moderate Pain (Pain Scale 4-6) 05/09/18 22:15 05/16/18 22:14 Ondansetron HCl (Zofran) 4 mg Q6H PRN IVP Nausea & Vomiting 05/09/18 22:15 06/08/18 22:14 Phenazopyridine HCl (Pyridium) 100 mg DAILY PRN ORAL dysuria 05/09/18 22:15 06/08/18 22:14 Polyethylene Glycol (Miralax) 17 gm DAILYPRN PRN ORAL Constipation 05/09/18 22:15 06/08/18 22:14 Risperidone (RisperDAL) 0.25 mg Q6H PRN ORAL Agitation 05/09/18 22:15 06/08/18 22:14 Sennosides (Senokot) 1 tab DAILY ORAL 05/10/18 09:00 06/09/18 08:59 05/11/18 09:01 Sodium Chloride 1,000 ml @ 50 mls/hr Q20H IV 05/10/18 07:45 06/09/18 07:44 05/11/18 03:57 Temazepam (Restoril) 15 mg HSPRN PRN ORAL Insomnia 05/09/18 22:15 05/16/18 22:14 Valproic Acid (Depakene) 750 mg Q12HR@0600,1800 ORAL 05/10/18 06:00 06/09/18 05:59 05/11/18 05:32 Vancomycin HCl 1 gm/Dextrose 275 ml @ 183.3 mls/ hr Q24H IVPB 05/10/18 00:30 05/15/18 00:29 05/11/18 00:16 Assessment/Plan Assessment/Plan Abx: IV Vanco 05/10- Ceftriaxone x1 05/09; 05/11- Cefepime 05/10-05/11 Assessment: UTI -ua wbc tntc, nit +, leuk +3; ucx >100k e.coli (R cipro/levo, otherwise S) Leukocytosis -CXR p Afebrile Encephalopathy -CT head Weakness Multiple falls COPD Alzheimer Dementia MDD seizure disorder SNF resident Plan: -COntinue Ceftriaxone abx d #3/7 -D/c IV Vanco #2 -05/11 SP Cefepime #2 -f/u CXR, CT head -f/u cx -Monitor CBC/CMP, temperatures -CBC, CMP am -Bcx x2 -aspiration precautions Thank you for this consultation. Will continue to follow along with you. Discussed with CALI. Nadia Gonzales M.D. May 11, 2018 13:38
[2018-05-11] MEDS ORDERED: LORazepam 0.5mg tab ORAL PRN (14:00)
[2018-05-11] MEDS: cefTRIAXone 1 GM in D5W 55 ML IVPB SCH (17:25)
[2018-05-11 20:00] VITALS: BP 118/62
[2018-05-11] MEDS: Donepezil 10mg tab ORAL SCH (20:40)
[2018-05-12] VITALS: BP 135/54
[2018-05-12] MEDS: Vancomycin 1 GM in D5W 275 ML IVPB SCH (02:14)
[2018-05-12 04:00] VITALS: BP 123/68
--- NOTE | 2018-05-12 04:45 | Consultation ---
DATE OF CONSULTATION: 05/11/2018 CONSULTING PHYSICIAN: Meghann Dailey M.D. HISTORY OF PRESENT ILLNESS: She is a 73-year-old female patient from [facility]. She came in with increased confusion, weakness, altered mental status, urinary tract infection, sepsis, and confused. She is not giving much information since she is confused and disorganized. Mood labile. She has no logical plan for her own self-care. She has low energy, poor appetite, and loss of interest in activities. There was a psychiatric consultation because the patient had rapid decline in cognition below baseline secondary to the stress of her medical illness. In addition to that, she has overlying diagnosis of major depression with psychotic features, rule out pseudodementia. PAST MEDICAL HISTORY: She has a history of seizure disorder, dehydration, and depression. ALLERGIES: No known drug allergies. SUBSTANCE ABUSE HISTORY: No history of any drug or alcohol use. FAMILY PSYCHIATRIC HISTORY: Unknown. PAIN ASSESSMENT: 0/10. DEVELOPMENTAL PROBLEMS: Denies. SOCIAL HISTORY: The patient is financially supported by [employer] and Medicare, and again she lives in [facility]. PSYCHIATRIC HISTORY: History of major depression with psychotic features, rule out pseudodementia. MENTAL STATUS EXAMINATION: This is a 73-year-old female. Appearance is disheveled. Attitude, irritable and agitated. Affect, guarded and restricted. Intellect, poor. Mood, depressed and anxious. Motor activity, psychomotor agitation. Attention span is poor. Orientation x2. Speech pressured. Thought process, disorganized and logical. Thought content, auditory hallucinations and paranoid delusions. Insight and judgment is poor. DIAGNOSIS: Major depression with psychotic features, rule out schizoaffective, bipolar type. PLAN: Plan is to treat with Risperdal 0.5 mg twice a day and also treat her with a medication regimen consisting of Remeron 7.5 mg p.o. nightly, Namenda 10 mg twice a day, Aricept 10 mg nightly, Ativan 0.5 mg every 6 hours p.r.n. anxiety and agitation. Provided her with 20 minutes of insight-oriented psychotherapy to help regain insight into her cognitive deficits so that she has better behavior on the unit. Twenty minutes of insight-oriented psychotherapy provided. Chart was reviewed. Discussed with staff. The patient was seen and assessed at bedside. Meghann Dailey M.D. DR: DAKOTA JOB#: [id number] CC:
[2018-05-12] MEDS: Valproic Acid 250mg/5ml Liquid ORAL SCH ×2 (05:26→17:39)
--- NOTE | 2018-05-12 06:15 | Consultation ---
DATE OF CONSULTATION: 05/10/2018 CONSULTING PHYSICIAN: Erik Able PsyD. TREATING ATTENDING PHYSICIAN: Jaziel Arana D.O. HISTORY: This is a 73-year-old female patient from [facility], presents to [facility] for UTI. The patient has had increased confusion regarding and is referred for psychotherapeutic services. This clinician assessed this patient. The patient is alert and awake. She remains confused , unable to communicate. The patient denies any suicidal or homicidal thoughts of ideation. She states that she still feels depressed in the hospital setting, wants to go back home. Had a difficult time identifying where she lives currently. psychiatric service. Was able to communicate and answer simple questions. At this time, the patient is consistently confused and disorganized . PAST MEDICAL HISTORY: Includes a history of seizure and dehydration. ALLERGIES: The patient has no known drug allergies. SUBSTANCE ABUSE HISTORY: alcohol use and dependence noted. PSYCHIATRIC HISTORY: The patient has a history of depression and has been treated with psychotropic medications in the past. SOCIAL HISTORY: The patient is a 73-year-old female patient from [facility], financially sustained through [employer]. MENTAL STATUS EXAMINATION: The patient is alert and oriented to person and place. Mood is dysphoric. Affect blunted. Thought process, disorganized. Thought content, confused. She has poor attention and concentration. Poor insight, judgment, and impulse control. DIAGNOSES: AXIS I Major depressive disorder, recurrent and moderate, without psychotic features. AXIS II Deferred. AXIS III Per history and physical. AXIS IV Psychosocial stressors, moderate. PLAN: This clinician assessed this patient and provided the patient with supportive psychotherapy, cognitive behavioral interventions, coping skills and relaxation exercises. Continue with behavioral management. This clinician has reviewed the patient's chart and discussed treatment with treatment team. Erik Abel PsyD. DR: TIFFANI JOB#: [id number] CC:
[2018-05-12 06:59] LABS: BASOPHILS % (AUTO) 0.9 % (0.0-2.0); EOSINOPHILS % (AUTO) 1.5 % (0.0-3.0); HEMATOCRIT 38.6 % (37.0-47.0); HEMOGLOBIN 13.7 G/DL (12.0-16.0); LYMPHOCYTES % (AUTO) 45.4 % (20.0-45.0); MEAN CORPUSCULAR VOLUME 90 FL (80-99); MONOCYTES % (AUTO) 8.1 % (1.0-10.0); NEUTROPHILS % (AUTO) 44.1 % (45.0-75.0); PLATELET COUNT 237 K/UL (150-450); RED BLOOD COUNT 4.31 M/UL (4.20-5.40); RED CELL DISTRIBUTION WIDTH 10.3 % (11.6-14.8)
[2018-05-12 07:09] LABS: ANION GAP 8 mmol/L (5-15); BLOOD UREA NITROGEN 11 mg/dL (7-18); CALCIUM 9.1 MG/DL (8.5-10.1); CARBON DIOXIDE 27 MMOL/L (21-32); CHLORIDE 109 MMOL/L (98-107); CREATININE 0.6 MG/DL (0.55-1.30); POTASSIUM 3.8 MMOL/L (3.5-5.1); SODIUM 143 MMOL/L (136-145)
[2018-05-12 07:37] LABS: ALANINE AMINOTRANSFERASE 28 U/L (12-78); ALBUMIN 2.8 G/DL (3.4-5.0); ALKALINE PHOSPHATASE 162 U/L (46-116); ASPARTATE AMINO TRANSFERASE 18 U/L (15-37); BILIRUBIN,DIRECT < 0.1 MG/DL (0.0-0.3); BILIRUBIN,TOTAL 0.4 MG/DL (0.2-1.0)
[2018-05-12 08:20] VITALS: BP 123/57
[2018-05-12] MEDS: Memantine 10mg tab ORAL SCH ×2 (08:37→17:36)
[2018-05-12] MEDS: Sennosides 8.6mg ORAL SCH (08:37)
[2018-05-12] MEDS: Heparin 5000 units/ml inj SUBQ SCH ×2 (08:41→21:19)
[2018-05-12 12:14] VITALS: BP 126/75
--- NOTE | 2018-05-12 12:16 | Infectious Diseases Prog Note ---
Assessment/Plan Assessment/Plan Assessment: UTI -ua wbc tntc, nit +, leuk +3; ucx >100k e.coli (R cipro/levo, otherwise S) Leukocytosis; resoved -CXR p Afebrile Encephalopathy -CT head Weakness Multiple falls COPD Alzheimer Dementia MDD seizure disorder SNF resident Plan: -COntinue Ceftriaxone abx d #4/ -05/11 SP Cefepime #2, IV Vanco #2 -f/u CXR, CT head -f/u cx -Monitor CBC/CMP, temperatures -f/u Bcx x2 -aspiration precautions Thank you for this consultation. Will continue to follow along with you. Discussed with RN. Subjective Allergies: Coded Allergies: SHELLFISH DERIVED (Verified Allergy, Intermediate, 08/14/17) Dust (Verified Allergy, Unknown, 08/14/17) MOLD (Verified Allergy, Unknown, 08/14/17) WHEAT (Verified Allergy, Unknown, 08/14/17) Subjective afebrile leukocytosis resolved Objective Vital Signs Last 24 Hour Vital Signs Date Time Temp Pulse Resp B/P (MAP) Pulse Ox O2 Delivery O2 Flow Rate FiO2 05/12/18 09:00 Room Air 05/12/18 08:40 75 18 Room Air 21 05/12/18 08:20 97.4 72 18 123/57 (79) 95 97.4 05/12/18 04:00 97.6 75 16 123/68 (86) 100 97.6 05/12/18 00:00 97.7 80 18 135/54 (81) 98 97.7 05/11/18 21:00 Room Air 05/11/18 20:00 97.5 66 16 118/62 (80) 96 97.5 05/11/18 19:23 77 16 Room Air 21 Height (Feet): 5 Height (Inches): 3.00 Weight (Pounds): 114 Objective GENERAL: Lethargic in bed, refusing to answer questions. CARDIOVASCULAR: No murmur. LUNGS: Distant and clear. ABDOMEN: Bowel sounds positive. Nontender. Nondistended. EXTREMITIES: No cyanosis or edema. NEUROLOGIC: The patient moves all extremities, slightly weak Microbiology Date/Time Source Procedure Growth Status 05/10/18 06:55 Blood Blood Culture - Preliminary NO GROWTH AFTER 24 HOURS Resulted 05/10/18 06:45 Blood Blood Culture - Preliminary NO GROWTH AFTER 24 HOURS Resulted 05/09/18 22:00 Nasal Nares MRSA Culture - Final NO METHICILLIN RESISTANT STAPH AUREUS... Complete 05/09/18 20:00 Urine,Clean Catch Urine Culture - Final Escherichia Coli Complete 05/09/18 22:00 Rectum VRE Culture - Final NO VANCOMYCIN RESISTANT ENTEROCOCCUS ... Complete 05/09/18 22:00 Rectum - Final NO CARBAPENEM-RESISTANT ENTEROBACTERI... Complete Laboratory Tests Test 05/12/18 05:40 White Blood Count 7.0 K/UL (4.8-10.8) # Red Blood Count 4.31 M/UL (4.20-5.40) Hemoglobin 13.7 G/DL (12.0-16.0) Hematocrit 38.6 % (37.0-47.0) Mean Corpuscular Volume 90 FL (80-99) Mean Corpuscular Hemoglobin 31.7 PG (27.0-31.0) H Mean Corpuscular Hemoglobin Concent 35.4 G/DL (32.0-36.0) Red Cell Distribution Width 10.3 % (11.6-14.8) L Platelet Count 237 K/UL (150-450) Mean Platelet Volume 10.5 FL (6.5-10.1) H Neutrophils (%) (Auto) 44.1 % (45.0-75.0) L Lymphocytes (%) (Auto) 45.4 % (20.0-45.0) H Monocytes (%) (Auto) 8.1 % (1.0-10.0) Eosinophils (%) (Auto) 1.5 % (0.0-3.0) Basophils (%) (Auto) 0.9 % (0.0-2.0) Sodium Level 143 MMOL/L (136-145) Potassium Level 3.8 MMOL/L (3.5-5.1) Chloride Level 109 MMOL/L (98-107) H Carbon Dioxide Level 27 MMOL/L (21-32) Anion Gap 8 mmol/L (5-15) Blood Urea Nitrogen 11 mg/dL (7-18) Creatinine 0.6 MG/DL (0.55-1.30) Estimat Glomerular Filtration Rate mL/min (>60) Glucose Level 73 MG/DL (74-106) L Calcium Level 9.1 MG/DL (8.5-10.1) Total Bilirubin 0.4 MG/DL (0.2-1.0) Direct Bilirubin < 0.1 MG/DL (0.0-0.3) Aspartate Amino Transf (AST/SGOT) 18 U/L (15-37) Alanine Aminotransferase (ALT/SGPT) 28 U/L (12-78) Alkaline Phosphatase 162 U/L (46-116) H Total Protein 6.3 G/DL (6.4-8.2) L Albumin 2.8 G/DL (3.4-5.0) L Current Medications Medications (Trade) Dose Ordered Sig/Chadwick Route PRN Reason Start Time Stop Time Status Last Admin Dose Admin Acetaminophen (Tylenol) 650 mg Q4H PRN ORAL fever 05/09/18 22:15 06/08/18 22:14 Albuterol/ Ipratropium (Albuterol/ Ipratropium) 3 ml EVERY 4 HOURS PRN HHN Shortness of Breath 05/09/18 22:15 05/14/18 22:14 Ceftriaxone Sodium 1 gm/ Dextrose 55 ml @ 110 mls/hr Q24H IVPB 05/11/18 18:00 05/18/18 17:59 05/11/18 17:25 Donepezil HCl (Aricept) 10 mg BEDTIME ORAL 05/10/18 21:00 06/09/18 20:59 05/11/18 20:40 Heparin Sodium (Porcine) (Heparin 5000 units/ml) 5,000 units EVERY 12 HOURS SUBQ 05/09/18 23:15 06/08/18 23:14 05/12/18 08:41 Lorazepam (Ativan) 0.5 mg Q6H PRN ORAL For Anxiety 05/11/18 14:00 05/18/18 13:59 Memantine (Namenda) 10 mg BID ORAL 05/10/18 09:00 06/09/18 08:59 05/12/18 08:37 Mirtazapine (Remeron) 7.5 mg BEDTIME ORAL 05/10/18 21:00 06/09/18 20:59 05/11/18 20:40 Morphine Sulfate (Morphine Sulfate) 2 mg EVERY 4 HOURS PRN IVP Moderate Pain (Pain Scale 4-6) 05/09/18 22:15 05/16/18 22:14 Ondansetron HCl (Zofran) 4 mg Q6H PRN IVP Nausea & Vomiting 05/09/18 22:15 06/08/18 22:14 Phenazopyridine HCl (Pyridium) 100 mg DAILY PRN ORAL dysuria 05/09/18 22:15 06/08/18 22:14 Polyethylene Glycol (Miralax) 17 gm DAILYPRN PRN ORAL Constipation 05/09/18 22:15 06/08/18 22:14 05/11/18 21:54 Risperidone (RisperDAL) 0.25 mg Q6H PRN ORAL Agitation 05/09/18 22:15 06/08/18 22:14 Risperidone (RisperDAL) 0.5 mg BID ORAL 05/11/18 18:00 06/10/18 17:59 05/12/18 08:36 Sennosides (Senokot) 1 tab DAILY ORAL 05/10/18 09:00 06/09/18 08:59 05/12/18 08:37 Sodium Chloride 1,000 ml @ 50 mls/hr Q20H IV 05/10/18 07:45 06/09/18 07:44 05/11/18 20:40 Temazepam (Restoril) 15 mg HSPRN PRN ORAL Insomnia 05/09/18 22:15 05/16/18 22:14 Valproic Acid (Depakene) 750 mg Q12HR@0600,1800 ORAL 05/10/18 06:00 06/09/18 05:59 05/12/18 05:26 Vancomycin HCl 1 gm/Dextrose 275 ml @ 183.3 mls/ hr Q24H IVPB 05/10/18 00:30 05/15/18 00:29 05/12/18 02:14 Nadia Gonzales M.D. May 12, 2018 12:16
--- NOTE | 2018-05-12 13:57 | General Progress Note ---
Assessment/Plan Problem List: (1) Sepsis ICD Codes: A41.9 - Sepsis, unspecified organism SNOMED: 93871327 (2) Malnutrition ICD Codes: E46 - Unspecified protein-calorie malnutrition SNOMED: 16104800 (3) Weak ICD Codes: R53.1 - Weakness SNOMED: 22668401 (4) UTI (urinary tract infection) ICD Codes: N39.0 - Urinary tract infection, site not specified SNOMED: 40061867 Qualifiers: Qualified Codes: N39.0 - Urinary tract infection, site not specified (5) Uncontrolled seizures ICD Codes: R56.9 - Unspecified convulsions SNOMED: 54574097 (6) Depression ICD Codes: F32.9 - Major depressive disorder, single episode, unspecified SNOMED: 83426424 (7) Dehydration ICD Codes: E86.0 - Dehydration SNOMED: 68991473 Status: stable, progressing Assessment/Plan ot pt diet abx cbc bmp am dc plan Subjective Constitutional: Reports: weakness Allergies: Coded Allergies: SHELLFISH DERIVED (Verified Allergy, Intermediate, 08/14/17) Dust (Verified Allergy, Unknown, 08/14/17) MOLD (Verified Allergy, Unknown, 08/14/17) WHEAT (Verified Allergy, Unknown, 08/14/17) All Systems: reviewed and negative except above Subjective sleepy calm Objective Last 24 Hour Vital Signs Date Time Temp Pulse Resp B/P (MAP) Pulse Ox O2 Delivery O2 Flow Rate FiO2 05/12/18 12:14 97.0 18 126/75 (92) 97 97.0 05/12/18 09:00 Room Air 05/12/18 08:40 75 18 Room Air 21 05/12/18 08:20 97.4 72 18 123/57 (79) 95 97.4 05/12/18 04:00 97.6 75 16 123/68 (86) 100 97.6 05/12/18 00:00 97.7 80 18 135/54 (81) 98 97.7 05/11/18 21:00 Room Air 05/11/18 20:00 97.5 66 16 118/62 (80) 96 97.5 05/11/18 19:23 77 16 Room Air 21 Intake and Output 05/11/18 05/12/18 19:00 07:00 Intake Total 420 ml 680.4 ml Balance 420 ml 680.4 ml IV Total 220 ml 680.4 ml Other 200 ml # Voids 2 2 Laboratory Tests 05/12/18 05:40: White Blood Count 7.0#, Red Blood Count 4.31, Hemoglobin 13.7, Hematocrit 38.6, Mean Corpuscular Volume 90, Mean Corpuscular Hemoglobin 31.7H, Mean Corpuscular Hemoglobin Concent 35.4, Red Cell Distribution Width 10.3L, Platelet Count 237, Mean Platelet Volume 10.5H, Neutrophils (%) (Auto) 44.1L, Lymphocytes (%) (Auto ) 45.4H, Monocytes (%) (Auto) 8.1, Eosinophils (%) (Auto) 1.5, Basophils (%) ( Auto) 0.9, Sodium Level 143, Potassium Level 3.8, Chloride Level 109H, Carbon Dioxide Level 27, Anion Gap 8, Blood Urea Nitrogen 11, Creatinine 0.6, Estimat Glomerular Filtration Rate , Glucose Level 73L, Calcium Level 9.1, Total Bilirubin 0.4, Direct Bilirubin < 0.1, Aspartate Amino Transf (AST/SGOT) 18, Alanine Aminotransferase (ALT/SGPT) 28, Alkaline Phosphatase 162H, Total Protein 6.3L, Albumin 2.8L Height (Feet): 5 Height (Inches): 3.00 Weight (Pounds): 114 General Appearance: lethargic EENT: normal ENT inspection Neck: normal alignment Cardiovascular: normal peripheral pulses, normal rate, regular rhythm Respiratory/Chest: chest wall non-tender, lungs clear, normal breath sounds Abdomen: normal bowel sounds, non tender, soft Extremities: normal inspection Edema: no edema noted Arm (L), no edema noted Arm (R), no edema noted Leg (L), no edema noted Leg (R), no edema noted Pedal (L), no edema noted Pedal (R), no edema noted Generalized Neurologic: motor weakness Skin: normal pigmentation, warm/dry Jaziel Arana DO May 12, 2018 13:57
--- NOTE | 2018-05-12 14:24 | Pulmonology Progress Note ---
Assessment/Plan Problems: (1) Sepsis (2) UTI (urinary tract infection) (3) Malnutrition (4) Depression Assessment/Plan no new complains doing better iv abx iv fluids check cultures check electrolytes respiratory treatment prn titrate fio2 to sat of 92% dvt prophylaxis Subjective ROS Limited/Unobtainable: Yes Interval Events: comfortable, awake, eatig well Allergies: Coded Allergies: SHELLFISH DERIVED (Verified Allergy, Intermediate, 08/14/17) Dust (Verified Allergy, Unknown, 08/14/17) MOLD (Verified Allergy, Unknown, 08/14/17) WHEAT (Verified Allergy, Unknown, 08/14/17) Objective Last 24 Hour Vital Signs Date Time Temp Pulse Resp B/P (MAP) Pulse Ox O2 Delivery O2 Flow Rate FiO2 05/12/18 12:14 97.0 18 126/75 (92) 97 97.0 05/12/18 09:00 Room Air 05/12/18 08:40 75 18 Room Air 21 05/12/18 08:20 97.4 72 18 123/57 (79) 95 97.4 05/12/18 04:00 97.6 75 16 123/68 (86) 100 97.6 05/12/18 00:00 97.7 80 18 135/54 (81) 98 97.7 05/11/18 21:00 Room Air 05/11/18 20:00 97.5 66 16 118/62 (80) 96 97.5 05/11/18 19:23 77 16 Room Air 21 Intake and Output 05/11/18 05/12/18 19:00 07:00 Intake Total 420 ml 680.4 ml Balance 420 ml 680.4 ml IV Total 220 ml 680.4 ml Other 200 ml # Voids 2 2 General Appearance: cachetic HEENT: normocephalic, atraumatic Respiratory/Chest: chest wall non-tender, lungs clear Breasts: no masses Cardiovascular: normal peripheral pulses Abdomen: normal bowel sounds, soft, non tender Genitourinary: normal external genitalia Extremities: no cyanosis Skin: no rash 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 Complete 05/09/18 20:00 Urine,Clean Catch Urine Culture - Final Escherichia Coli Complete 05/09/18 22:00 Rectum VRE Culture - Final NO VANCOMYCIN RESISTANT ENTEROCOCCUS ... Complete 05/09/18 22:00 Rectum - Final NO CARBAPENEM-RESISTANT ENTEROBACTERI... Complete Laboratory Tests 05/12/18 05:40: White Blood Count 7.0#, Red Blood Count 4.31, Hemoglobin 13.7, Hematocrit 38.6, Mean Corpuscular Volume 90, Mean Corpuscular Hemoglobin 31.7H, Mean Corpuscular Hemoglobin Concent 35.4, Red Cell Distribution Width 10.3L, Platelet Count 237, Mean Platelet Volume 10.5H, Neutrophils (%) (Auto) 44.1L, Lymphocytes (%) (Auto ) 45.4H, Monocytes (%) (Auto) 8.1, Eosinophils (%) (Auto) 1.5, Basophils (%) ( Auto) 0.9, Sodium Level 143, Potassium Level 3.8, Chloride Level 109H, Carbon Dioxide Level 27, Anion Gap 8, Blood Urea Nitrogen 11, Creatinine 0.6, Estimat Glomerular Filtration Rate , Glucose Level 73L, Calcium Level 9.1, Total Bilirubin 0.4, Direct Bilirubin < 0.1, Aspartate Amino Transf (AST/SGOT) 18, Alanine Aminotransferase (ALT/SGPT) 28, Alkaline Phosphatase 162H, Total Protein 6.3L, Albumin 2.8L Current Medications Medications (Trade) Dose Ordered Sig/[place] Route PRN Reason Start Time Stop Time Status Last Admin Dose Admin Acetaminophen (Tylenol) 650 mg Q4H PRN ORAL fever 05/09/18 22:15 06/08/18 22:14 Albuterol/ Ipratropium (Albuterol/ Ipratropium) 3 ml EVERY 4 HOURS PRN HHN Shortness of Breath 05/09/18 22:15 05/14/18 22:14 Ceftriaxone Sodium 1 gm/ Dextrose 55 ml @ 110 mls/hr Q24H IVPB 05/11/18 18:00 05/18/18 17:59 05/11/18 17:25 Donepezil HCl (Aricept) 10 mg BEDTIME ORAL 05/10/18 21:00 06/09/18 20:59 05/11/18 20:40 Heparin Sodium (Porcine) (Heparin 5000 units/ml) 5,000 units EVERY 12 HOURS SUBQ 05/09/18 23:15 06/08/18 23:14 05/12/18 08:41 Lorazepam (Ativan) 0.5 mg Q6H PRN ORAL For Anxiety 05/11/18 14:00 05/18/18 13:59 Memantine (Namenda) 10 mg BID ORAL 05/10/18 09:00 06/09/18 08:59 05/12/18 08:37 Mirtazapine (Remeron) 7.5 mg BEDTIME ORAL 05/10/18 21:00 06/09/18 20:59 05/11/18 20:40 Morphine Sulfate (Morphine Sulfate) 2 mg EVERY 4 HOURS PRN IVP Moderate Pain (Pain Scale 4-6) 05/09/18 22:15 05/16/18 22:14 Ondansetron HCl (Zofran) 4 mg Q6H PRN IVP Nausea & Vomiting 05/09/18 22:15 06/08/18 22:14 Phenazopyridine HCl (Pyridium) 100 mg DAILY PRN ORAL dysuria 05/09/18 22:15 06/08/18 22:14 Polyethylene Glycol (Miralax) 17 gm DAILYPRN PRN ORAL Constipation 05/09/18 22:15 06/08/18 22:14 05/11/18 21:54 Risperidone (RisperDAL) 0.25 mg Q6H PRN ORAL Agitation 05/09/18 22:15 06/08/18 22:14 Risperidone (RisperDAL) 0.5 mg BID ORAL 05/11/18 18:00 06/10/18 17:59 05/12/18 08:36 Sennosides (Senokot) 1 tab DAILY ORAL 05/10/18 09:00 06/09/18 08:59 05/12/18 08:37 Sodium Chloride 1,000 ml @ 50 mls/hr Q20H IV 05/10/18 07:45 06/09/18 07:44 05/11/18 20:40 Temazepam (Restoril) 15 mg HSPRN PRN ORAL Insomnia 05/09/18 22:15 05/16/18 22:14 Valproic Acid (Depakene) 750 mg Q12HR@0600,1800 ORAL 05/10/18 06:00 06/09/18 05:59 05/12/18 05:26 Jesu Wilkes MD May 12, 2018 14:24
[2018-05-12 15:47] VITALS: BP 117/68
[2018-05-12] MEDS: cefTRIAXone 1 GM in D5W 55 ML IVPB SCH (17:39)
--- NOTE | 2018-05-12 19:09 | Cardiology Report ---
APPROVED REPORT EKG Measurement Heart [id number] OK [id number] Sinus rhythm with premature atrial complexes Otherwise normal ECG
[2018-05-12 20:00] VITALS: BP 118/70
--- NOTE | 2018-05-12 21:15 | Progress Note ---
DATE: 05/12/2018 NOTE: "VERY POOR AUDIO QUALITY" SUBJECTIVE: This is a 73-year-old female with urinary tract infection and altered mental status. Urinary tract infection has caused her to have increased mood lability and agitation. That is why her attending has requested daily psychiatric consultation. I assessed her at bedside. She is very confused and disorganized with intermittent agitation. MENTAL STATUS EXAMINATION: This is a 73-year-old female. Appearance is disheveled. Attitude, irritable and agitated. Affect, guarded and restricted. Intellect poor. Mood depressed and anxious. Motor activity, psychomotor agitation. Attention span is poor. Orientation x2. Speech is pressured. Thought process, disorganized and illogical. Thought content, auditory hallucinations and paranoid delusions. Insight and judgment is poor. DIAGNOSIS: Major depression with psychotic features, rule out pseudodementia, rule out schizoaffective bipolar type. PLAN: Namenda 10 mg twice a day, Aricept 10 mg nightly, Depakote 750 mg twice a day, Risperdal 0.5 twice a day, Ativan 0.5 mg q.6 hours p.r.n. Twenty minutes of cognitive behavioral therapy for identifying automatic negative thoughts and help her to convert automatic negative thoughts to form positive thoughts to reduce agitation and depression. Twenty minutes of cognitive behavioral therapy provided. Meghann Dailey M.D. DR: Jennifer JOB#: [id number] CC:
[2018-05-12] MEDS: Donepezil 10mg tab ORAL SCH (21:17)
--- NOTE | 2018-05-12 23:15 | Progress Note ---
DATE: 05/12/2018 NOTE: "VERY POOR AUDIO QUALITY" SUBJECTIVE: This is a 73-year-old female with urinary tract infection and altered mental status. Urinary tract infection has caused her to have increased mood lability and agitation. That is why her attending has requested daily psychiatric consultation. I assessed her at bedside. She is very confused and disorganized with intermittent agitation. MENTAL STATUS EXAMINATION: This is a 73-year-old female. Appearance is disheveled. Attitude, irritable and agitated. Affect, guarded and restricted. Intellect poor. Mood depressed and anxious. Motor activity, psychomotor agitation. Attention span is poor. Orientation x2. Speech is pressured. Thought process, disorganized and illogical. Thought content, auditory hallucinations and paranoid delusions. Insight and judgment is poor. DIAGNOSIS: Major depression with psychotic features, rule out pseudodementia, rule out schizoaffective bipolar type. PLAN: Namenda 10 mg twice a day, Aricept 10 mg nightly, Depakote 750 mg twice a day, Risperdal 0.5 twice a day, Ativan 0.5 mg q.6 hours p.r.n. Twenty minutes of cognitive behavioral therapy for identifying automatic negative thoughts and help her to convert automatic negative thoughts to more positive thoughts to reduce agitation and depression. Twenty minutes of cognitive behavioral therapy provided. Meghann Dailey M.D. DR: Jennifer JOB#: [id number] CC:
[2018-05-13] VITALS: BP 149/67
--- NOTE | 2018-05-13 02:15 | Progress Note ---
DATE: 05/11/2018 "NOTE: POOR AUDIO QUALITY" PSYCHOTHERAPY CONSULTATION PROGRESS NOTE TREATING ATTENDING PHYSICIAN: Jaziel Arana D.O. HISTORY OF PRESENT ILLNESS: The patient is a 73-year-old female patient. The patient has history of depression. The patient has been confused and helpless. The patient is . The patient denies suicidal or homicidal thoughts of ideations. Denies any auditory or visual hallucinations. This patient has been cooperative. She remains helpless, compulsive, and dysphoric. Continues to remain weak, tired, and fatigue. However, in the treatment. MENTAL STATUS EXAMINATION: The patient is awake and alert and oriented to person and place. Her mood is dysphoric. Affect blunted. Thought process is disorganized. ASSESSMENT: . PLAN: interventions, supportive psychotherapy, and reality orientation. Continue with behavioral management. This clinician has reviewed the patient's chart. Discussed the treatment with treatment team . Psychotherapy service is provided. Erik Abel PsyD. : DAVID JOB#: [id number] CC:
[2018-05-13 04:00] VITALS: BP 120/87
--- NOTE | 2018-05-13 04:15 | Progress Note ---
DATE: 05/12/2018 SUBJECTIVE: This is a 73-year-old female with urinary tract infection and altered mental status. Urinary tract infection has caused her to have increased mood lability and agitation. That is why her attending has requested daily psychiatric consultation. I assessed her at bedside. She is very confused, disorganized, intermittent agitation. MENTAL STATUS EXAMINATION: This is a 73-year-old female. Appearance is disheveled. Attitude, irritable and agitated. Affect, guarded and restricted. Intellect poor. Mood depressed and anxious. Motor activity, psychomotor agitation. Attention span is poor. Orientation x2. Speech is pressured. Thought process, disorganized and illogical. Thought content, auditory hallucinations and paranoid delusions. Insight and judgment is poor. DIAGNOSIS: Major depression with psychotic features, rule out pseudodementia, rule out schizoaffective bipolar type. PLAN: Namenda 10 mg twice a day, Aricept 10 mg nightly, Depakote 750 mg twice a day, Risperdal 0.5 twice a day, and Ativan 0.5 mg q.6 h. p.r.n. Twenty minutes of cognitive behavioral therapy for identifying automatic negative thoughts and help her to convert automatic negative thoughts to more positive thoughts to reduce agitation and depression. Twenty minutes of cognitive behavioral therapy provided. Meghann Dailey M.D. DR: DAKOTA JOB#: [id number] CC:
[2018-05-13] MEDS: Valproic Acid 250mg/5ml Liquid ORAL SCH (05:26)
[2018-05-13 07:45] LABS: EOSINOPHILS % (AUTO) 1.7 % (0.0-3.0); HEMATOCRIT 36.9 % (37.0-47.0); HEMOGLOBIN 12.9 G/DL (12.0-16.0); LYMPHOCYTES % (AUTO) 44.9 % (20.0-45.0); MEAN CORPUSCULAR VOLUME 89 FL (80-99); MONOCYTES % (AUTO) 7.8 % (1.0-10.0); NEUTROPHILS % (AUTO) 44.7 % (45.0-75.0); PLATELET COUNT 211 K/UL (150-450); RED BLOOD COUNT 4.14 M/UL (4.20-5.40); RED CELL DISTRIBUTION WIDTH 10.4 % (11.6-14.8); WHITE BLOOD COUNT 5.6 K/UL (4.8-10.8)
[2018-05-13 08:00] VITALS: BP 149/79
[2018-05-13 08:20] LABS: ANION GAP 10 mmol/L (5-15); BLOOD UREA NITROGEN 14 mg/dL (7-18); CARBON DIOXIDE 29 MMOL/L (21-32); CHLORIDE 111 MMOL/L (98-107); CREATININE 0.6 MG/DL (0.55-1.30); POTASSIUM 3.6 MMOL/L (3.5-5.1); SODIUM 149 MMOL/L (136-145)
[2018-05-13] MEDS: Sennosides 8.6mg ORAL SCH (10:56)
[2018-05-13] MEDS: Memantine 10mg tab ORAL SCH (10:56)
[2018-05-13] MEDS: Heparin 5000 units/ml inj SUBQ SCH (11:02)
[2018-05-13 12:00] VITALS: BP 118/99
--- NOTE | 2018-05-13 13:19 | General Progress Note ---
Assessment/Plan Problem List: (1) Sepsis ICD Codes: A41.9 - Sepsis, unspecified organism SNOMED: 61940521 (2) Malnutrition ICD Codes: E46 - Unspecified protein-calorie malnutrition SNOMED: 56072376 (3) Weak ICD Codes: R53.1 - Weakness SNOMED: 01608108 (4) UTI (urinary tract infection) ICD Codes: N39.0 - Urinary tract infection, site not specified SNOMED: 47951815 Qualifiers: Qualified Codes: N39.0 - Urinary tract infection, site not specified (5) Uncontrolled seizures ICD Codes: R56.9 - Unspecified convulsions SNOMED: 01583495 (6) Depression ICD Codes: F32.9 - Major depressive disorder, single episode, unspecified SNOMED: 19752182 (7) Dehydration ICD Codes: E86.0 - Dehydration SNOMED: 40746356 Status: unchanged Assessment/Plan ot pt diet abx dc if clear Subjective Constitutional: Reports: weakness Allergies: Coded Allergies: SHELLFISH DERIVED (Verified Allergy, Intermediate, 08/14/17) Dust (Verified Allergy, Unknown, 08/14/17) MOLD (Verified Allergy, Unknown, 08/14/17) WHEAT (Verified Allergy, Unknown, 08/14/17) All Systems: reviewed and negative except above Subjective sleepy calm Objective Last 24 Hour Vital Signs Date Time Temp Pulse Resp B/P (MAP) Pulse Ox O2 Delivery O2 Flow Rate FiO2 05/13/18 12:00 97.3 72 13 118/99 (105) 96 97.3 05/13/18 09:00 Room Air 05/13/18 08:00 97.9 72 19 149/79 (102) 97 97.9 05/13/18 06:55 70 16 Room Air 21 05/13/18 04:00 97.5 69 18 120/87 (98) 98 97.5 05/13/18 00:00 97.9 72 19 149/67 (94) 97 97.9 05/12/18 21:00 Room Air 05/12/18 20:00 97.5 64 18 118/70 (86) 97 97.5 05/12/18 19:00 73 20 Room Air 21 05/12/18 15:47 97.8 85 18 117/68 (84) 97 97.8 Intake and Output 05/12/18 05/13/18 19:00 07:00 Intake Total 760 ml 840 ml Balance 760 ml 840 ml Intake Oral 600 ml 240 ml IV Total 160 ml 600 ml # Voids 5 3 # Bowel Movements 1 1 Laboratory Tests 05/13/18 06:15: White Blood Count 5.6, Red Blood Count 4.14L, Hemoglobin 12.9, Hematocrit 36.9L , Mean Corpuscular Volume 89, Mean Corpuscular Hemoglobin 31.2H, Mean Corpuscular Hemoglobin Concent 34.9, Red Cell Distribution Width 10.4L, Platelet Count 211, Mean Platelet Volume 9.6, Neutrophils (%) (Auto) 44.7L, Lymphocytes (%) (Auto) 44.9, Monocytes (%) (Auto) 7.8, Eosinophils (%) (Auto) 1.7, Basophils (%) (Auto) 1.0, Sodium Level 149H, Potassium Level 3.6, Chloride Level 111H, Carbon Dioxide Level 29, Anion Gap 10, Blood Urea Nitrogen 14, Creatinine 0.6, Estimat Glomerular Filtration Rate , Glucose Level 84, Calcium Level 9.0 Height (Feet): 5 Height (Inches): 3.00 Weight (Pounds): 119 General Appearance: lethargic, confused EENT: normal ENT inspection Neck: normal alignment Cardiovascular: normal peripheral pulses, normal rate, regular rhythm Respiratory/Chest: chest wall non-tender, lungs clear, normal breath sounds Abdomen: normal bowel sounds, non tender, soft Extremities: normal inspection Edema: no edema noted Arm (L), no edema noted Arm (R), no edema noted Leg (L), no edema noted Leg (R), no edema noted Pedal (L), no edema noted Pedal (R), no edema noted Generalized Neurologic: motor weakness Skin: normal pigmentation, warm/dry Jaziel Arana DO May 13, 2018 13:19
--- NOTE | 2018-05-13 14:29 | Pulmonology Progress Note ---
Assessment/Plan Problems: (1) Sepsis (2) UTI (urinary tract infection) (3) Malnutrition (4) Depression Assessment/Plan no new complains doing better iv abx dc iv fluids, because of rising Na ( pt was getting NS) check cultures check electrolytes respiratory treatment prn titrate fio2 to sat of 92% dvt prophylaxis Subjective ROS Limited/Unobtainable: Yes Allergies: Coded Allergies: SHELLFISH DERIVED (Verified Allergy, Intermediate, 08/14/17) Dust (Verified Allergy, Unknown, 08/14/17) MOLD (Verified Allergy, Unknown, 08/14/17) WHEAT (Verified Allergy, Unknown, 08/14/17) Objective Last 24 Hour Vital Signs Date Time Temp Pulse Resp B/P (MAP) Pulse Ox O2 Delivery O2 Flow Rate FiO2 05/13/18 12:00 97.3 72 13 118/99 (105) 96 97.3 05/13/18 09:00 Room Air 05/13/18 08:00 97.9 72 19 149/79 (102) 97 97.9 05/13/18 06:55 70 16 Room Air 21 05/13/18 04:00 97.5 69 18 120/87 (98) 98 97.5 05/13/18 00:00 97.9 72 19 149/67 (94) 97 97.9 05/12/18 21:00 Room Air 05/12/18 20:00 97.5 64 18 118/70 (86) 97 97.5 05/12/18 19:00 73 20 Room Air 21 05/12/18 15:47 97.8 85 18 117/68 (84) 97 97.8 Intake and Output 05/12/18 05/13/18 19:00 07:00 Intake Total 760 ml 840 ml Balance 760 ml 840 ml Intake Oral 600 ml 240 ml IV Total 160 ml 600 ml # Voids 5 3 # Bowel Movements 1 1 General Appearance: cachetic HEENT: normocephalic, atraumatic Respiratory/Chest: chest wall non-tender, lungs clear Breasts: no masses Cardiovascular: normal peripheral pulses Abdomen: normal bowel sounds, soft, non tender Genitourinary: normal external genitalia Extremities: no cyanosis Skin: no rash 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 Microbiology Date/Time Source Procedure Growth Status 05/11/18 14:50 Blood Blood Culture - Preliminary NO GROWTH AFTER 24 HOURS Resulted 05/11/18 14:30 Blood Blood Culture - Preliminary NO GROWTH AFTER 24 HOURS Resulted Laboratory Tests 05/13/18 06:15: White Blood Count 5.6, Red Blood Count 4.14L, Hemoglobin 12.9, Hematocrit 36.9L , Mean Corpuscular Volume 89, Mean Corpuscular Hemoglobin 31.2H, Mean Corpuscular Hemoglobin Concent 34.9, Red Cell Distribution Width 10.4L, Platelet Count 211, Mean Platelet Volume 9.6, Neutrophils (%) (Auto) 44.7L, Lymphocytes (%) (Auto) 44.9, Monocytes (%) (Auto) 7.8, Eosinophils (%) (Auto) 1.7, Basophils (%) (Auto) 1.0, Sodium Level 149H, Potassium Level 3.6, Chloride Level 111H, Carbon Dioxide Level 29, Anion Gap 10, Blood Urea Nitrogen 14, Creatinine 0.6, Estimat Glomerular Filtration Rate , Glucose Level 84, Calcium Level 9.0 Current Medications Medications (Trade) Dose Ordered Sig/[place] Route PRN Reason Start Time Stop Time Status Last Admin Dose Admin Acetaminophen (Tylenol) 650 mg Q4H PRN ORAL fever 05/09/18 22:15 06/08/18 22:14 Albuterol/ Ipratropium (Albuterol/ Ipratropium) 3 ml EVERY 4 HOURS PRN HHN Shortness of Breath 05/09/18 22:15 05/14/18 22:14 Ceftriaxone Sodium 1 gm/ Dextrose 55 ml @ 110 mls/hr Q24H IVPB 05/11/18 18:00 05/18/18 17:59 05/12/18 17:39 Donepezil HCl (Aricept) 10 mg BEDTIME ORAL 05/10/18 21:00 06/09/18 20:59 05/12/18 21:17 Heparin Sodium (Porcine) (Heparin 5000 units/ml) 5,000 units EVERY 12 HOURS SUBQ 05/09/18 23:15 06/08/18 23:14 05/13/18 11:02 Lorazepam (Ativan) 0.5 mg Q6H PRN ORAL For Anxiety 05/11/18 14:00 05/18/18 13:59 Memantine (Namenda) 10 mg BID ORAL 05/10/18 09:00 06/09/18 08:59 05/13/18 10:56 Mirtazapine (Remeron) 7.5 mg BEDTIME ORAL 05/10/18 21:00 06/09/18 20:59 05/12/18 21:17 Morphine Sulfate (Morphine Sulfate) 2 mg EVERY 4 HOURS PRN IVP Moderate Pain (Pain Scale 4-6) 05/09/18 22:15 05/16/18 22:14 Ondansetron HCl (Zofran) 4 mg Q6H PRN IVP Nausea & Vomiting 05/09/18 22:15 06/08/18 22:14 Phenazopyridine HCl (Pyridium) 100 mg DAILY PRN ORAL dysuria 05/09/18 22:15 06/08/18 22:14 Polyethylene Glycol (Miralax) 17 gm DAILYPRN PRN ORAL Constipation 05/09/18 22:15 06/08/18 22:14 05/11/18 21:54 Risperidone (RisperDAL) 0.25 mg Q6H PRN ORAL Agitation 05/09/18 22:15 06/08/18 22:14 05/12/18 15:30 Risperidone (RisperDAL) 0.5 mg BID ORAL 05/11/18 18:00 06/10/18 17:59 05/13/18 10:56 Sennosides (Senokot) 1 tab DAILY ORAL 05/10/18 09:00 06/09/18 08:59 05/13/18 10:56 Sodium Chloride 1,000 ml @ 50 mls/hr Q20H IV 05/10/18 07:45 06/09/18 07:44 05/12/18 18:22 Temazepam (Restoril) 15 mg HSPRN PRN ORAL Insomnia 05/09/18 22:15 05/16/18 22:14 Valproic Acid (Depakene) 750 mg Q12HR@0600,1800 ORAL 05/10/18 06:00 06/09/18 05:59 05/13/18 05:26 Jesu Wilkes MD May 13, 2018 14:29
--- NOTE | 2018-05-13 14:34 | Pulmonology Progress Note ---
Assessment/Plan Problems: (1) Sepsis (2) UTI (urinary tract infection) (3) Malnutrition (4) Depression Assessment/Plan no new complains doing better iv abx check cultures check electrolytes respiratory treatment prn titrate fio2 to sat of 92% dvt prophylaxis Subjective ROS Limited/Unobtainable: Yes Constitutional: Reports: no symptoms HEENT: Repors: no symptoms Allergies: Coded Allergies: SHELLFISH DERIVED (Verified Allergy, Intermediate, 08/14/17) Dust (Verified Allergy, Unknown, 08/14/17) MOLD (Verified Allergy, Unknown, 08/14/17) WHEAT (Verified Allergy, Unknown, 08/14/17) Objective Last 24 Hour Vital Signs Date Time Temp Pulse Resp B/P (MAP) Pulse Ox O2 Delivery O2 Flow Rate FiO2 05/13/18 12:00 97.3 72 13 118/99 (105) 96 97.3 05/13/18 09:00 Room Air 05/13/18 08:00 97.9 72 19 149/79 (102) 97 97.9 05/13/18 06:55 70 16 Room Air 21 05/13/18 04:00 97.5 69 18 120/87 (98) 98 97.5 05/13/18 00:00 97.9 72 19 149/67 (94) 97 97.9 05/12/18 21:00 Room Air 05/12/18 20:00 97.5 64 18 118/70 (86) 97 97.5 05/12/18 19:00 73 20 Room Air 21 05/12/18 15:47 97.8 85 18 117/68 (84) 97 97.8 Intake and Output 05/12/18 05/13/18 19:00 07:00 Intake Total 760 ml 840 ml Balance 760 ml 840 ml Intake Oral 600 ml 240 ml IV Total 160 ml 600 ml # Voids 5 3 # Bowel Movements 1 1 General Appearance: WD/WN HEENT: normocephalic, atraumatic Respiratory/Chest: chest wall non-tender, lungs clear Breasts: no masses Cardiovascular: normal peripheral pulses Abdomen: normal bowel sounds, soft, non tender Genitourinary: normal external genitalia Extremities: no clubbing Skin: no rash Microbiology Date/Time Source Procedure Growth Status 05/11/18 14:50 Blood Blood Culture - Preliminary NO GROWTH AFTER 24 HOURS Resulted 05/11/18 14:30 Blood Blood Culture - Preliminary NO GROWTH AFTER 24 HOURS Resulted Laboratory Tests 05/13/18 06:15: White Blood Count 5.6, Red Blood Count 4.14L, Hemoglobin 12.9, Hematocrit 36.9L , Mean Corpuscular Volume 89, Mean Corpuscular Hemoglobin 31.2H, Mean Corpuscular Hemoglobin Concent 34.9, Red Cell Distribution Width 10.4L, Platelet Count 211, Mean Platelet Volume 9.6, Neutrophils (%) (Auto) 44.7L, Lymphocytes (%) (Auto) 44.9, Monocytes (%) (Auto) 7.8, Eosinophils (%) (Auto) 1.7, Basophils (%) (Auto) 1.0, Sodium Level 149H, Potassium Level 3.6, Chloride Level 111H, Carbon Dioxide Level 29, Anion Gap 10, Blood Urea Nitrogen 14, Creatinine 0.6, Estimat Glomerular Filtration Rate , Glucose Level 84, Calcium Level 9.0 Current Medications Medications (Trade) Dose Ordered Sig/[place] Route PRN Reason Start Time Stop Time Status Last Admin Dose Admin Acetaminophen (Tylenol) 650 mg Q4H PRN ORAL fever 05/09/18 22:15 06/08/18 22:14 Albuterol/ Ipratropium (Albuterol/ Ipratropium) 3 ml EVERY 4 HOURS PRN HHN Shortness of Breath 05/09/18 22:15 05/14/18 22:14 Ceftriaxone Sodium 1 gm/ Dextrose 55 ml @ 110 mls/hr Q24H IVPB 05/11/18 18:00 05/18/18 17:59 05/12/18 17:39 Donepezil HCl (Aricept) 10 mg BEDTIME ORAL 05/10/18 21:00 06/09/18 20:59 05/12/18 21:17 Heparin Sodium (Porcine) (Heparin 5000 units/ml) 5,000 units EVERY 12 HOURS SUBQ 05/09/18 23:15 06/08/18 23:14 05/13/18 11:02 Lorazepam (Ativan) 0.5 mg Q6H PRN ORAL For Anxiety 05/11/18 14:00 05/18/18 13:59 Memantine (Namenda) 10 mg BID ORAL 05/10/18 09:00 06/09/18 08:59 05/13/18 10:56 Mirtazapine (Remeron) 7.5 mg BEDTIME ORAL 05/10/18 21:00 06/09/18 20:59 05/12/18 21:17 Morphine Sulfate (Morphine Sulfate) 2 mg EVERY 4 HOURS PRN IVP Moderate Pain (Pain Scale 4-6) 05/09/18 22:15 05/16/18 22:14 Ondansetron HCl (Zofran) 4 mg Q6H PRN IVP Nausea & Vomiting 05/09/18 22:15 06/08/18 22:14 Phenazopyridine HCl (Pyridium) 100 mg DAILY PRN ORAL dysuria 05/09/18 22:15 06/08/18 22:14 Polyethylene Glycol (Miralax) 17 gm DAILYPRN PRN ORAL Constipation 05/09/18 22:15 06/08/18 22:14 05/11/18 21:54 Risperidone (RisperDAL) 0.25 mg Q6H PRN ORAL Agitation 05/09/18 22:15 06/08/18 22:14 05/12/18 15:30 Risperidone (RisperDAL) 0.5 mg BID ORAL 05/11/18 18:00 06/10/18 17:59 05/13/18 10:56 Sennosides (Senokot) 1 tab DAILY ORAL 05/10/18 09:00 06/09/18 08:59 05/13/18 10:56 Sodium Chloride 1,000 ml @ 50 mls/hr Q20H IV 05/10/18 07:45 06/09/18 07:44 05/12/18 18:22 Temazepam (Restoril) 15 mg HSPRN PRN ORAL Insomnia 05/09/18 22:15 05/16/18 22:14 Valproic Acid (Depakene) 750 mg Q12HR@0600,1800 ORAL 05/10/18 06:00 06/09/18 05:59 05/13/18 05:26 Jesu Wilkes MD May 13, 2018 14:34
[2018-05-13] MEDS ORDERED: ACETAMINOPHEN325 M1 ORAL (14:35)
[2018-05-13] MEDS ORDERED: ROCEPHIN 11 GM/50 ML IVPB (14:36)
[2018-05-13] MEDS ORDERED: DUONEB 0.5-3(2.53 ML HHN (14:37)
[2018-05-13] MEDS ORDERED: LORAZEPAM0.5 MG ORAL (14:39)
[2018-05-13] MEDS ORDERED: MIRALAX17 G2 ORAL (14:44)
[2018-05-13] MEDS ORDERED: PHENAZOPYRIDIN100 MG ORAL (14:44)
[2018-05-13] MEDS ORDERED: TEMAZEPAM15 MG ORAL (14:45)
[2018-05-13] MEDS ORDERED: D5W 275ml ONE (16:04)
[2018-05-13] MEDS ORDERED: NS 500ML ONE (16:04)
[2018-05-13] MEDS ORDERED: Tubing IV Secondary IV ONE (16:04)
--- NOTE | 2018-05-13 16:28 | Infectious Diseases Prog Note ---
Assessment/Plan Assessment/Plan Assessment: UTI -ua wbc tntc, nit +, leuk +3; ucx >100k e.coli (R cipro/levo, otherwise S) Leukocytosis; resoved Afebrile Encephalopathy -CT head Weakness Multiple falls COPD Alzheimer Dementia MDD seizure disorder SNF resident Plan: -Switch Ceftriaxone abx d #/ to PO keflex -ok to dichage on above regimen -05/11 SP Cefepime #2, IV Vanco #2 -f/u CXR, CT head -f/u cx -Monitor CBC/CMP, temperatures -f/u Bcx x2 -aspiration precautions Thank you for this consultation. Will continue to follow along with you. Discussed with RN. Subjective Allergies: Coded Allergies: SHELLFISH DERIVED (Verified Allergy, Intermediate, 08/14/17) Dust (Verified Allergy, Unknown, 08/14/17) MOLD (Verified Allergy, Unknown, 08/14/17) WHEAT (Verified Allergy, Unknown, 08/14/17) Subjective afebrile leukocytosis resolved Objective Vital Signs Last 24 Hour Vital Signs Date Time Temp Pulse Resp B/P (MAP) Pulse Ox O2 Delivery O2 Flow Rate FiO2 05/13/18 12:00 97.3 72 13 118/99 (105) 96 97.3 05/13/18 09:00 Room Air 05/13/18 08:00 97.9 72 19 149/79 (102) 97 97.9 05/13/18 06:55 70 16 Room Air 21 05/13/18 04:00 97.5 69 18 120/87 (98) 98 97.5 05/13/18 00:00 97.9 72 19 149/67 (94) 97 97.9 05/12/18 21:00 Room Air 05/12/18 20:00 97.5 64 18 118/70 (86) 97 97.5 05/12/18 19:00 73 20 Room Air 21 Height (Feet): 5 Height (Inches): 3.00 Weight (Pounds): 119 Objective GENERAL: Lethargic in bed, refusing to answer questions. CARDIOVASCULAR: No murmur. LUNGS: Distant and clear. ABDOMEN: Bowel sounds positive. Nontender. Nondistended. EXTREMITIES: No cyanosis or edema. NEUROLOGIC: The patient moves all extremities, slightly weak Microbiology Date/Time Source Procedure Growth Status 05/11/18 14:50 Blood Blood Culture - Preliminary NO GROWTH AFTER 24 HOURS Resulted 05/11/18 14:30 Blood Blood Culture - Preliminary NO GROWTH AFTER 24 HOURS Resulted Laboratory Tests Test 05/13/18 06:15 White Blood Count 5.6 K/UL (4.8-10.8) Red Blood Count 4.14 M/UL (4.20-5.40) L Hemoglobin 12.9 G/DL (12.0-16.0) Hematocrit 36.9 % (37.0-47.0) L Mean Corpuscular Volume 89 FL (80-99) Mean Corpuscular Hemoglobin 31.2 PG (27.0-31.0) H Mean Corpuscular Hemoglobin Concent 34.9 G/DL (32.0-36.0) Red Cell Distribution Width 10.4 % (11.6-14.8) L Platelet Count 211 K/UL (150-450) Mean Platelet Volume 9.6 FL (6.5-10.1) Neutrophils (%) (Auto) 44.7 % (45.0-75.0) L Lymphocytes (%) (Auto) 44.9 % (20.0-45.0) Monocytes (%) (Auto) 7.8 % (1.0-10.0) Eosinophils (%) (Auto) 1.7 % (0.0-3.0) Basophils (%) (Auto) 1.0 % (0.0-2.0) Sodium Level 149 MMOL/L (136-145) H Potassium Level 3.6 MMOL/L (3.5-5.1) Chloride Level 111 MMOL/L (98-107) H Carbon Dioxide Level 29 MMOL/L (21-32) Anion Gap 10 mmol/L (5-15) Blood Urea Nitrogen 14 mg/dL (7-18) Creatinine 0.6 MG/DL (0.55-1.30) Estimat Glomerular Filtration Rate mL/min (>60) Glucose Level 84 MG/DL (74-106) Calcium Level 9.0 MG/DL (8.5-10.1) Current Medications Medications (Trade) Dose Ordered Sig/[place] Route PRN Reason Start Time Stop Time Status Last Admin Dose Admin Acetaminophen (Tylenol) 650 mg Q4H PRN ORAL fever 05/09/18 22:15 06/08/18 22:14 Albuterol/ Ipratropium (Albuterol/ Ipratropium) 3 ml EVERY 4 HOURS PRN HHN Shortness of Breath 05/09/18 22:15 05/14/18 22:14 Ceftriaxone Sodium 1 gm/ Dextrose 55 ml @ 110 mls/hr Q24H IVPB 05/11/18 18:00 05/18/18 17:59 05/12/18 17:39 Donepezil HCl (Aricept) 10 mg BEDTIME ORAL 05/10/18 21:00 06/09/18 20:59 05/12/18 21:17 Heparin Sodium (Porcine) (Heparin 5000 units/ml) 5,000 units EVERY 12 HOURS SUBQ 05/09/18 23:15 06/08/18 23:14 05/13/18 11:02 Lorazepam (Ativan) 0.5 mg Q6H PRN ORAL For Anxiety 05/11/18 14:00 05/18/18 13:59 Memantine (Namenda) 10 mg BID ORAL 05/10/18 09:00 06/09/18 08:59 05/13/18 10:56 Mirtazapine (Remeron) 7.5 mg BEDTIME ORAL 05/10/18 21:00 06/09/18 20:59 05/12/18 21:17 Morphine Sulfate (Morphine Sulfate) 2 mg EVERY 4 HOURS PRN IVP Moderate Pain (Pain Scale 4-6) 05/09/18 22:15 05/16/18 22:14 Ondansetron HCl (Zofran) 4 mg Q6H PRN IVP Nausea & Vomiting 05/09/18 22:15 06/08/18 22:14 Phenazopyridine HCl (Pyridium) 100 mg DAILY PRN ORAL dysuria 05/09/18 22:15 06/08/18 22:14 Polyethylene Glycol (Miralax) 17 gm DAILYPRN PRN ORAL Constipation 05/09/18 22:15 06/08/18 22:14 05/11/18 21:54 Risperidone (RisperDAL) 0.25 mg Q6H PRN ORAL Agitation 05/09/18 22:15 06/08/18 22:14 05/12/18 15:30 Risperidone (RisperDAL) 0.5 mg BID ORAL 05/11/18 18:00 06/10/18 17:59 10/3/18 10:56 Sennosides (Senokot) 1 tab DAILY ORAL 05/10/18 09:00 06/09/18 08:59 05/13/18 10:56 Temazepam (Restoril) 15 mg HSPRN PRN ORAL Insomnia 05/09/18 22:15 05/16/18 22:14 Valproic Acid (Depakene) 750 mg Q12HR@0600,1800 ORAL 05/10/18 06:00 06/09/18 05:59 05/13/18 05:26 Nadia Gonzales M.D. May 13, 2018 16:28
[2018-05-13] MEDS ORDERED: Cephalexin 500mg cap ORAL SCH (18:00)
--- NOTE | 2018-05-14 12:48 | Discharge Summary ---
Discharge Summary Discharge Summary _ DATE OF ADMISSION: 05/09/2018 DATE OF DISCHARGE: 05/13/2018 CONSULTANTS: Dr. Jesu Abel PsyD BRIEF HOSPITAL COURSE: Patient is a 73-year-old female, from [facility], presented to [place] for evaluation of weakness and falling episodes. Patient fell ground -level from a seat. Staff denied head trauma. Patient has history of dementia and was unable to give history. She had an old laceration to the left eyebrow, apparently not new. On evaluation at ED, vital signs were stable. Blood work did not show any leukocytosis, however chemistry showed increased BUN. Urinalysis showed urine WBC too many to count, 2 to RBC, 3+ leukocyte esterase, positive nitrite, 3+ blood, negative ketones, 2+ protein. Troponin was negative. Urine toxicology negative. Head CT showed involutional changes with no bleed or mass effect. Chest x-ray with no infiltrate. She was then admitted for dehydration and UTI. She was given IV hydration and was started on IV vancomycin and ceftriaxone. Urine culture showed growth of Escherichia coli sensitive to ceftriaxone. Vancomycin was discontinued. Psychiatric consultation was obtained. Patient was with increased confusion, weakness and altered mental status. She has an overlying diagnosis of major depression with psychotic features and had rapid decline in cognition below baseline secondary to stress of her medical illness. She was given Risperdal, Depakote, Remeron, Namenda and Aricept. Serum sodium was rising. IV fluid was discontinued. Blood culture did not isolate any growth. She was eventually cleared [facility]. FINAL DIAGNOSES: Escherichia coli Urinary tract infection Major depressive disorder with psychotic features Dehydration Acute on chronic encephalopathy due to dehydration and infectious process COPD Seizure disorder Multiple falls Alzheimer's dementia DISPOSITION: Patient was discharged back to [facility]. DISCHARGE MEDICATIONS: Refer to Discharge Medication List. I have been assigned to dictate discharge summary on this account, and I was not involved in the patient's management. Anitra Hay NP May 14, 2018 12:48
== END 2018-05-13 16:05 | DRG 872 ==
LOC: EDBD 18:34 → EMR 18:50 → 4E 21:22 → EDBEDREQ 21:42
DX: A41.9 Sepsis, unspecified organism (principal); N39.0 Urinary tract infection, site not specified; E46 Unspecified protein-calorie malnutrition; F32.3 Major depressive disorder, single episode, severe with psychotic features; G93.40 Encephalopathy, unspecified; E86.0 Dehydration; B96.20 Unspecified Escherichia coli [E. coli] as the cause of diseases classified elsewhere; Z91.81 History of falling; G30.9 Alzheimer's disease, unspecified; F02.80 Dementia in other diseases classified elsewhere, unspecified severity, without behavioral disturbance, psychotic disturbance, mood disturbance, and anxiety; G40.909 Epilepsy, unspecified, not intractable, without status epilepticus; J44.9 Chronic obstructive pulmonary disease, unspecified; Z23 Encounter for immunization
CPT/HCPCS: 36415; 51701; 70450; 71045; 80048; 80053; 80076; 80164; 80307; 81003; 82550; 83880; 84484; 85025; 85610; 85730; 87040; 87081; 87086; 87181; 90630; 93005; 94664; 96361; 96365; 99285